=== PATIENT | male | born 1945 | race Caucasian/White ===

== ENCOUNTER → 2016-05-01 | Outpatient (CLI) | payer BC ==
[~2016-05-01] MED LIST: ACET-1138 PO; ALBUAER2 INH; ASPEC81 PO; ATOR-24 PO; CLB200 PO; CLC100 PO; FLUT220A INH; LEVO175T3 PO; MELA1TAB3 PO; OXYSR10 PO; PANT40TA PO; RISP4TAB8 PO; RXC5 PO; SNK PO; SOTA80TA PO; VENL75TA4 PO
[2016-05-01 11:45] LABS: BLOOD UREA NITROGEN 19 mg/dl (7-18); CALCIUM 8.3 mg/dl (8.5-10.1); CARBON DIOXIDE 30 mmol/L (21-32); CHLORIDE 102 mmol/L (98-107); GLUCOSE 90 mg/dl (70-99); POTASSIUM 4.8 mmol/L (3.5-5.1); SODIUM 138 mmol/L (136-145)
[2016-05-01 11:49] LABS: PHOSPHORUS 3.3 mg/dl (2.5-4.9); PROSTATE SPECIFIC ANTIGEN 0.537 ng/ml (0.000-4.000)
== END | disposition home or self-care (01) ==
LOC: C.LAB1850 10:12
PROVIDERS: ATTEND Internal Medicine Nephrology
DX: N40.0 Benign prostatic hyperplasia without lower urinary tract symptoms (principal); E87.1 Hypo-osmolality and hyponatremia

== ENCOUNTER → 2016-09-05 | Outpatient (CLI) | payer BC ==
--- NOTE | 2016-09-05 10:28 | DIAGNOSTIC IMAGING REPORT ---
CAROTID DOPPLER NECK ART HISTORY: Mental status change R42 COMPARISON: None. TECHNIQUE: Real-time, grayscale, and color Doppler sonography of the carotid arteries was performed. Imaging reviewed in the transverse and longitudinal planes. All measurements were calculated based on NASCET criteria. FINDINGS: Antegrade flow is seen in the bilateral vertebral arteries. The brachial pressures are hemodynamically similar. Minimal plaque formation bilaterally The peak systolic velocity within the right ICA is 57. The right systolic ratio is 0.8. The peak systolic velocity within the left ICA is 46. The left systolic ratio is 0.7. IMPRESSION: No hemodynamically significant stenosis seen within the carotid arteries. Minimal plaque formation The above report was generated using voice recognition software. It may contain grammatical, syntax or spelling errors. Electronically signed by: David Colunga M.D. 09/05/2016 10:26 AM Dictated Date/Time: 09/05/2016 10:07 AM
== END | disposition home or self-care (01) ==
LOC: C.ULTR 09:30
PROVIDERS: ATTEND Family Medicine
DX: R42 Dizziness and giddiness (principal)

== ENCOUNTER → 2017-03-01 | Outpatient (CLI) | payer BC ==
[2017-03-01 12:33] LABS: BLOOD UREA NITROGEN 16 mg/dl (7-18); CALCIUM 8.8 mg/dl (8.5-10.1); CARBON DIOXIDE 26 mmol/L (21-32); CREATININE 1.04 mg/dl (0.60-1.40); GLUCOSE 101 mg/dl (70-99); POTASSIUM 4.3 mmol/L (3.5-5.1); SODIUM 132 mmol/L (136-145)
== END | disposition home or self-care (01) ==
LOC: C.LAB1850 11:06
PROVIDERS: ATTEND Family Medicine
DX: Z12.5 Encounter for screening for malignant neoplasm of prostate (principal); R73.01 Impaired fasting glucose; N40.0 Benign prostatic hyperplasia without lower urinary tract symptoms

== ENCOUNTER 2018-09-06 07:52 | Inpatient (IN) ==
--- NOTE | 2018-08-23 09:17 | PAT Medication Instructions ---
Medication Instructions Date of Service August 23, 2018 Home Medications albuterol sulfate 1 puff INHALATION Q6H PRN aspirin 81 mg PO HS fluticasone propionate [Flovent HFA] 2 puff INHALATION BID levothyroxine 175 mcg PO QAM melatonin 5 mg PO HS pantoprazole 40 mg PO QAM pravastatin 20 mg PO HS risperidone 4 mg PO HS sotalol 80 mg PO BID venlafaxine [Effexor XR] 75 mg PO QAM Take morning of surgery With a small sip of water, OTHERWISE NOTHING TO EAT OR DRINK AFTER MIDNIGHT: albuterol sulfate 1 puff INHALATION Q6H PRN (if needed, and bring with you to the hospital) fluticasone propionate [Flovent HFA] 2 puff INHALATION BID levothyroxine 175 mcg PO QAM pantoprazole 40 mg PO QAM sotalol 80 mg PO BID venlafaxine [Effexor XR] 75 mg PO QAM Take evening before surgery albuterol sulfate 1 puff INHALATION Q6H PRN (if needed) aspirin 81 mg PO HS fluticasone propionate [Flovent HFA] 2 puff INHALATION BID melatonin 5 mg PO HS pravastatin 20 mg PO HS risperidone 4 mg PO HS sotalol 80 mg PO BID Other Notes If you have any questions please call us at [phone] or [phone] or [phone] or [phone]
--- NOTE | 2018-08-23 11:23 | Anesthesiology Consultation ---
Date of Service August 23, 2018 Assessment & Plan (1) Encounter for pre-operative examination: Cardiology Clearance 08/19/18 = "Echo reviewed. May proceed with surgery at intermediate risk 4-5% of cardiac complications (CHF, DE, , arrhythmia (hx PAF). Will confirm CORREA is unchanged." *pt stated at PAT his CORREA is the same as it has been. Chart Review Chart Review: Acceptable Risk for Surgery and Patient seen in Pre Admission Testing Teaching & Discussion Instructed NPO after midnight before surgery, except medications with 15 cc of water. Medication instructions provided according to the [facility] guidelines. History Surgery Operation Date: 09/06/18 09:55 Proposed Procedures p L4-L5 Decompression and Fusion, Spinal Cord Monitoring - Prosper Washington DO Height/Weight Height: 6 ft Weight: 101.8 kg Allergies Allergy/AdvReac Type Severity Reaction Status Date / Time No Known Allergies Allergy Unverified 08/20/18 12:23 Medications Home Medications Medication Instructions Recorded Confirmed Last Taken albuterol sulfate 1 puff INHALATION Q6H PRN 08/20/18 08/20/18 Unknown aspirin 81 mg PO HS 08/20/18 08/20/18 Unknown fluticasone propionate [Flovent 2 puff INHALATION BID 08/20/18 08/20/18 Unknown HFA] levothyroxine 175 mcg PO QAM 08/20/18 08/20/18 Unknown melatonin 5 mg PO HS 08/20/18 08/20/18 Unknown pantoprazole 40 mg PO QAM 08/20/18 08/20/18 Unknown pravastatin 20 mg PO HS 08/20/18 08/20/18 Unknown risperidone 4 mg PO HS 08/20/18 08/20/18 Unknown sotalol 80 mg PO BID 08/20/18 08/20/18 Unknown venlafaxine [Effexor XR] 75 mg PO QAM 08/20/18 08/20/18 Unknown Past Medical History Medical History Anemia HX Atrial fibrillation Paroxysmal, symptomatic, on Sotolol and ASA 81mg (no further anticoagulation due to h/o severe GI bleed) BPH (benign prostatic hyperplasia) CAD (coronary artery disease) Mild-moderate nonobstructive Chronic back pain CORREA (dyspnea on exertion) At cardiology office visit in June, pt admitted his CORREA felt worse than baseline. Cardio updated echo and had patient wear pulse ox overnight to rule out issues with CPAP/ADELE. Both WNL; patient stated at PAT appointment that CORREA is the same. Degenerative disc disease GERD (gastroesophageal reflux disease) GI bleed History of, ~[id number]. Pt reports 2 units of blood transfused Hyperlipidemia Hypothyroidism Osteoarthritis Sleep apnea CPAP Exercise / Class Metabolic Activity III < 4 Walking/Shop/Light housework (No CP or SOB with ambulation on one level; does not have stairs but feels he may have some SOB with stairs) Past Family History Family History Grandmother (Paternal) FHx: leukemia Grandfather (Paternal) FHx: stomach cancer Past Surgical History Surgical History History of arthroscopy LEFT KNEE X2 History of cardiac cath X3. NO STENTS. History of colonoscopy History of esophagogastroduodenoscopy (EGD) History of total knee replacement LEFT KNEE Hx of transurethral resection of prostate Past Anesthesia History No Hx of Anesthesia Complications and No Family Hx of Anesthesia Complications History of PONV No Hx of PONV and No Hx of Motion Sickness Social History Smoking Status: Former smoker tobacco type: cigarettes Do You Dip or Chew Tobacco: No Smoking End Date: 02/05/1979 Hx Alcohol Use: Yes Alcohol type: beer alcohol intake frequency: a few times a month Hx Substance Use: No substance use type: does not use Review of Systems Pt denies any recent chest pain, shortness of breath above baseline, pa lpitations, cough, fever or URI. Physical Exam Vital Signs BP: 105/70 (pt reports this is low for him but denies lightheadedness/dizziness) P: 63bpm SPO2: 97% RA T: 97.5 F R: 14 ENMT Mouth: + dental restorations (few crowns); no chipped teeth and no loose teeth Thyromental Distance: < 3.5 Finger Breadths (3) Mallampati Class: I Neck + short neck and + thick neck; neck extension not limited Respiratory normal respiratory effort Auscultation: lungs clear to auscultation bilaterally Cardiovascular Rate/Rhythm: regular rate and regular rhythm Heart Sounds: no murmur Vessels: no carotid bruit Extremities: no edema Testing Laboratory Results 08/23/18 11:34 08/23/18 11:34 PT 10.2 Seconds (9.0-12.0) 08/23/18 11:34 INR 1.0 (0.9-1.1) 08/23/18 11:34 APTT 27.9 Seconds (21.0-31.0) 08/23/18 11:34 Urine Color Yellow 08/23/18 11:34 Urine Appearance Clear (Clear) 08/23/18 11:34 Urine pH 6.0 (4.5-7.5) 08/23/18 11:34 Ur Specific [place] 1.023 (1.000-1.030) 08/23/18 11:34 Urine Protein Negative (Negative) 08/23/18 11:34 Urine Glucose (UA) Negative (Negative) 08/23/18 11:34 Urine Ketones Negative (Negative) 08/23/18 11:34 Urine Nitrite Negative (Negative) 08/23/18 11:34 Ur Leukocyte Esterase Negative (Negative) 08/23/18 11:34 Blood Type A Positive 08/23/18 11:34 Antibody Screen NEGATIVE 08/23/18 11:34 Electrocardiogram Date: 07/05/18 Findings: + SB @ (57) ST and T wave abnormality, consider anterolateral ischemia. Compared to EKG of 12/13/17, ST and T wave changes are worse in the anterolateral leads. *This EKG was done in congruence with echo, and reviewed by patient's cardi ologist (Hailee). Chest X-Ray Date: 08/23/18 FINDINGS: There is mild lung hyperexpansion. There is suspected underlying emphysema. There is no consolidation to suggest pneumonia and there is no evidence for pulmonary edema. No pneumothorax or pleural effusion is noted. The appearance of the chest is unchanged. IMPRESSION: 1. No acute cardiopulmonary findings. 2. Suspected emphysema. Echocardiogram Date: 07/05/18 EF: 50-55% Normal LV size with low-normal systolic function and no RWMA. Mild concentric LVH. Grade I diastolic dysfunction with normal left atrial pressure. Moderately dilated left atrium. Normal RV size and function. Dilated right atrium. Mild aortic insufficiency and mild mitral regurgitation. Normal pulmonary artery pressures.
--- NOTE | 2018-08-23 11:52 | XRay Report ---
XR chest Pre-admission PA/Lat CLINICAL HISTORY: Preoperative evaluation. COMPARISON STUDY: Chest radiograph November 02, 2014. FINDINGS: There is mild lung hyperexpansion. There is suspected underlying emphysema. There is no con solidation to suggest pneumonia and there is no evidence for pulmonary edema. No pneumothorax or pleu ral effusion is noted. The appearance of the chest is unchanged. IMPRESSION: 1. No acute cardiopulmonary findings. 2. Suspected emphysema. Electronically signed by: Surinder Pina M.D. 08/23/2018 11:50 AM
[2018-08-23 13:33] LABS: Basophils # (auto) 0.02 K/uL (0-0.2); Basophils % (auto) 0.3 %; Eosinophils # (auto) 0.25 K/uL (0-0.5); Eosinophils % (auto) 3.3 %; Hemoglobin 15.5 g/dL (14.0-18.0); Immature Granulocytes # (auto) 0.07 K/uL (0.00-0.02); Immature Granulocytes % (auto) 0.9 %; Lymphocytes # (auto) 1.85 K/uL (1.2-3.4); Lymphocytes % (auto) 24.3 %; Mean Corpuscular Hgb Conc 35.2 g/dL (32-36); Mean Corpuscular Volume 87.8 fL (80-100); Monocytes # (auto) 0.95 K/uL (0.11-0.59); Monocytes % (auto) 12.5 %; Neutrophils # (auto) 4.46 K/uL (1.4-6.5); Neutrophils % (auto) 58.7 %; Platelet Count 279 K/uL (130-400); RDW Coefficient of Variation 13.8 % (11.5-14.5); RDW Standard Deviation 44.3 fL (36.4-46.3); Red Blood Count 5.01 M/uL (4.7-6.1)
[2018-08-23 13:41] LABS: Appearance Urine Clear (Clear); Bilirubin Urine Negative (Negative); Blood Urine Negative (Negative); Color Urine Yellow; Glucose Urine UA Negative (Negative); Ketones Urine Negative (Negative); Leukocyte Esterase Urine Negative (Negative); Nitrite Urine Negative (Negative); Protein Urine Negative (Negative); Specific Gravity Urine 1.023 (1.000-1.030); Urobilinogen Urine Negative (Negative)
[2018-08-23 13:43] LABS: Partial Thromboplastin Time 27.9 Seconds (21.0-31.0); Prothrombin Time 10.2 Seconds (9.0-12.0)
[2018-08-23 13:52] LABS: BUN Creatinine Ratio 16.4 (10-20); Calcium 8.9 mg/dl (8.5-10.1); Creatinine Clr Calc Pharmacy 92.7 ml/min; Est GFR (African American) 98.8; Est GFR (Non-African American) 85.2; Potassium 4.3 mmol/L (3.5-5.1)
[~2018-09-06 07:52] MED LIST changes: -ACET-1138 PO; -ALBUAER2 INH; -ASPEC81 PO; -ATOR-24 PO; +CEFAZOLIN 2000MG 2,000 MG/15 ML SYR IV SCH; -CLB200 PO; -CLC100 PO; -FLUT220A INH; -LEVO175T3 PO; +LR 15ML/HR IV SCH; -MELA1TAB3 PO; -OXYSR10 PO; -PANT40TA PO; -RISP4TAB8 PO; -RXC5 PO; -SNK PO; -SOTA80TA PO; -VENL75TA4 PO
[2018-09-06] MEDS ORDERED: MIDAZOLAM HCL 1 MG/ML 2ML VIAL ONE (09:19)
[2018-09-06] MEDS ORDERED: fentaNYL citrate 100 MCG/2 ML VIAL ONE ×5 (09:19→12:19)
--- NOTE | 2018-09-06 09:26 | History & Physical Bridge Note ---
Date of Service September 06, 2018 History & Physical Bridge Note I have examined the patient, reviewed the History & Physical and in the interval since the performance of the History & Physical I have noted the following changes of clinical significance: no changes noted
--- NOTE | 2018-09-06 09:27 | History & Physical Report ---
Date of Service September 06, 2018 Assessment & Plan (1) Spinal stenosis, lumbar region with neurogenic claudication: Lumbar decompression and fusion L4-5 L5-S1 Present on Admission?: Yes History of Present Illness Chief Complaint: Back and leg pain Primary Care Provider: Choco Lopez MD This is a 73-year-old male who presents with worsening back and leg pain. After failing extensive course of nonoperative care is here for surgical intervention. Allergies Allergy/AdvReac Type Severity Reaction Status Date / Time No Known Allergies Allergy Verified 09/06/18 08:23 Home Medications Home Medications Medication Instructions Recorded Confirmed Type albuterol sulfate 1 puff INHALATION Q6H PRN 08/20/18 09/06/18 History aspirin 81 mg PO HS 08/20/18 09/06/18 History fluticasone propionate [Flovent 2 puff INHALATION BID 08/20/18 09/06/18 History HFA] levothyroxine 175 mcg PO QAM 08/20/18 09/06/18 History melatonin 5 mg PO HS 08/20/18 09/06/18 History pantoprazole 40 mg PO QAM 08/20/18 09/06/18 History pravastatin 20 mg PO HS 08/20/18 09/06/18 History risperidone 4 mg PO HS 08/20/18 09/06/18 History sotalol 80 mg PO BID 08/20/18 09/06/18 History venlafaxine [Effexor XR] 75 mg PO QAM 08/20/18 09/06/18 History Past Med/Surg History Family History Grandmother (Paternal) FHx: leukemia Grandfather (Paternal) FHx: stomach cancer Social History Preferred Language: Citizen Of [place] Communication Ability: Effective Police Reserves Commander Required: No Beliefs That Will Affect Care: None Current Living Situation: Alone Other Information That Helps Us Care for You: No Feels Safe at Home: Yes Safety Concerns: Feels Safe At This Time Smoking Status: Former smoker Tobacco Type: cigarettes ; Do You Dip or Chew Tobacco: No ; Smoking End Date: 02/05/1979 ; Second Hand Exposure: Yes ( A CHILD) ; Tobacco Cessation Education Requested by Patient: No Hx Alcohol Use: Yes Alcohol type: beer Hx Substance Use: No Physical Exam Physical Exam: Patient is alert and oriented neurologically intact. Results & Data Vital Signs (Past 12 Hours) Vital Signs Temp Pulse Resp BP Pulse Ox 09/06/18 08:26 36.7 C 55 L 18 124/85 98
[2018-09-06] MEDS ORDERED: BUPIVACAINE/EPINEPHRINE 0.5% MPF 1:200,000 30 ML VIAL ONE (09:52)
[2018-09-06] MEDS ORDERED: BACITRACIN INJ 50,000 UNIT VIAL ONE (09:52)
[2018-09-06] MEDS ORDERED: PROMETHAZINE HCL 6.25 MG in SODIUM CHLORIDE 0.9% 50 ML IV PRN (09:54)
[2018-09-06] MEDS ORDERED: HYDROmorphone INJ 2 MG/ML SYR/VIAL IV PRN (09:54)
[2018-09-06] MEDS ORDERED: ePHEDrine sulfate 50 MG/ML AMP IV PRN (09:54)
[2018-09-06] MEDS ORDERED: fentaNYL citrate 100 MCG/2 ML VIAL IV PRN (09:54)
[2018-09-06] MEDS ORDERED: ATROPINE SULFATE 0.1 MG/ML 10ML SYR IV PRN (09:54)
[2018-09-06] MEDS ORDERED: ONDANSETRON INJ 2 MG/ML 2 ML VIAL IV PRN ×2 (09:54→13:56)
[2018-09-06] MEDS ORDERED: HYDROmorphone INJ 2 MG/ML SYR/VIAL ONE ×2 (10:31→12:18)
[2018-09-06] MEDS ORDERED: VASOPRESSIN 20 UNIT/ML VIAL ONE (10:40)
[2018-09-06] MEDS ORDERED: FLOSEAL HEMOSTATIC MATRIX 10ML TOP ONE (11:02)
[2018-09-06] MEDS ORDERED: ROCURONIUM BROMIDE 10 MG/ML 5 ML VIAL ONE (12:18)
[2018-09-06] MEDS ORDERED: KETOROLAC 30 MG/ML VIAL ONE (12:18)
[2018-09-06] MEDS ORDERED: DEXAMETHASONE SOD INJ 4 MG/ML VIAL ONE (12:18)
[2018-09-06] MEDS ORDERED: ONDANSETRON INJ 2 MG/ML 2 ML VIAL ONE (12:18)
[2018-09-06] MEDS ORDERED: GLYCOPYRROLATE 0.2 MG/ML VIAL ONE (12:18)
[2018-09-06] MEDS ORDERED: ePHEDrine sulfate 50 MG/ML AMP ONE (12:18)
[2018-09-06] MEDS ORDERED: LIDOCAINE HCL 2% 2 ML VIAL/AMP(20MG/ML) INFIL ONE (12:18)
[2018-09-06] MEDS ORDERED: LARYING-O-JET KIT (LTA) ONE (12:18)
[2018-09-06] MEDS ORDERED: ePHEDrine sulfate 50 MG/ML SYR ONE (12:18)
[2018-09-06] MEDS ORDERED: PROPOFOL IV EMULSION 10 MG/ML 20 ML VIAL IV ONE (12:18)
[2018-09-06] MEDS ORDERED: NEOSTIGMINE METHYLSULFATE 1 MG/ML 10ML VIAL ONE (12:18)
--- NOTE | 2018-09-06 12:23 | Operative Report ---
Post Operative Report Pre & Post Diagnosis Operation Date: 09/06/18 09:55 Pre-Op Diagnosis: Lumbar spinal stenosis with neurogenic claudication Post-Op Diagnosis: Same Procedure Operation Date: 09/06/18 09:55 Actual Procedures #1 lumbar decompression with bilateral medial facetectomies foraminotomies L3-4 L4-5 L5-S1. #2 posterior spinal fusion L4-5 L5-S1. #3 placement posterior instrumentation L4-5 L5-S1. #4 placement of local autograft in the posterior lateral gutters. #5 placement infuse collagen sponge combined with master graft and ostial amp in the posterior lateral gutters L4-S1. Surgeon Prosper Washington, DO S3B Multi Sensor Operator Gustavo Guillaume Estimated Blood Loss 225 Findings Consistent with Post-Op Diagnosis Specimens None Indications Patient is a 73-year-old male that presents with the above-mentioned diagnosis after failing extensive course of nonoperative care is here for surgical intervention. Description of Procedure Patient was met with identified and informed consent obtained. He was then taken to the operative suite underwent intubation placed in a prone position on the Harshal table on top of the Siva frame. All bony prominences well-padded was prepped and draped in normal sterile fashion. Sharp dissection with the assistance of Bovie cautery was performed on down to and exposing the lamina and transverse processes of L4-L5 and the sacral ala bilaterally. From a caudal to cephalad fashion plate laminectomy of L5 L4 partial laminectomy of L3 was performed including bilateral medial facetectomies and foraminotomies addressing severe stenosis. Pedicle screw was then placed in L4-L5 and S1 bilaterally. The appropriately size aida was locked in position. Transverse processes of L4- L5 and the sacral ala were then burred to subcortical bleeding bone and infuse collagen sponge master graft local autograft placed in the posterior lateral gutters. 15 round DILCIA drain inserted. The incision was then closed with 1 Vicryl in the fascia 2-0 Vicryl subtenons in 4 Monocryl for final skin closure. Steri-Strips dressings placed. Patient will continue to PACU stable disc. Please note Gustavo Guillaume present throughout the entire procedure involved the patient positioning complex portions of the surgery and final skin closure. Lastly spinal cord monitoring was utilized that procedure no changes noted. I attest to the content of the Intraoperative Record and any orders documented therein. Any exceptions are noted below.
--- NOTE | 2018-09-06 12:37 | Fluoroscopy Report ---
FL lumbar spine 2-3V CLINICAL HISTORY: L4-L5 DECOMPRESSION AND FUSION COMPARISON STUDY: FLUOROSCOPY TIME: 21 seconds. NUMBER OF FLUOROSCOPIC IMAGES: 2 FINDINGS: 2 intraoperative fluoroscopic spot images reveal postsurgical changes of a spinal decompres rancho and L4-S1 spinal fusion with pedicle screw fixation IMPRESSION: Postsurgical changes of L4-S1 spinal decompression and fusion Electronically signed by: Yayo Garza M.D. 09/06/2018 12:36 PM
--- NOTE | 2018-09-06 13:19 | Anesthesiology Progress Note ---
Date of Service September 06, 2018 Anesthesia Post Procedure Vital Signs Vital Signs: Temp Pulse Pulse Resp BP Pulse Ox 09/06/18 13:10 36.9 C 67 16 95/60 L 96 09/06/18 13:00 64 16 99/57 L 97 09/06/18 12:50 72 16 95/67 L 97 09/06/18 12:42 37.2 C 72 18 106/63 96 09/06/18 08:26 36.7 C 55 L 18 124/85 98 Pain Intensity Back: Pain Intensity: 8 Transfer of Care Handoff Completed per policy Notes Mental Status: alert / awake / arousable Patient Amnestic to Procedure: Yes Nausea / Vomiting: adequately controlled Pain: adequately controlled Airway Patency, RR, SpO2: stable & adequate BP & HR: stable & adequate Hydration State: stable & adequate Anesthetic Complications: no major complications apparent
[2018-09-06] MEDS ORDERED: DO NOT ADMINISTER FLU VACCINE PRN (13:56)
[2018-09-06] MEDS ORDERED: TRAMADOL HCL 50 MG TABLET PO PRN (13:56)
[2018-09-06] MEDS ORDERED: METOCLOPRAMIDE HCL INJ 5 MG/ML 2 ML VIAL IV PRN (13:56)
[2018-09-06] MEDS ORDERED: ALBUTEROL HFA 8 GM INHALER INH PRN (13:56)
[2018-09-06] MEDS ORDERED: FAMOTIDINE 20 MG TAB PO PRN (13:56)
[2018-09-06] MEDS ORDERED: PROMETHAZINE HCL 12.5 MG in SODIUM CHLORIDE 0.9% 50 ML IV PRN (13:56)
[2018-09-06] MEDS ORDERED: HYDROmorphone INJ 0.5 MG/0.5 ML SYR IV PRN (13:56)
[2018-09-06] MEDS ORDERED: ALUMINUM/MAGNESIUM SUSP 30 ML UDC PO PRN (13:56)
[2018-09-06] MEDS ORDERED: LORazepam 0.5 MG TAB PO PRN (13:56)
[2018-09-06] MEDS ORDERED: ONDANSETRON 4 MG TAB PO PRN (13:56)
[2018-09-06] MEDS ORDERED: MAGNESIUM HYDROXIDE SUSP 30 ML UDC PO PRN (13:56)
[2018-09-06] MEDS ORDERED: SOD PHOSPHATE/SOD BIPHOSPHATE ENEMA 132 ML BTL PR PRN (13:56)
[2018-09-06] MEDS ORDERED: DO NOT ADMINISTER PNEUMOCOCCAL VACCINE PRN (13:56)
[2018-09-06] MEDS ORDERED: BISACODYL 10 MG SUPP PR PRN (13:56)
[2018-09-06] MEDS ORDERED: LORazepam 0.5 MG/1 ML VIAL IV PRN (13:56)
[2018-09-06] MEDS ORDERED: ACETAMINOPHEN 1,000 MG/100 ML VIAL IV PRN (13:56)
--- NOTE | 2018-09-06 14:20 | Hospitalist Consultation ---
Date of Consultation September 06, 2018 Assessment & Plan (1) Atrial fibrillation: Patient sounds to be in regular rhythm is atrial fibrillation is controlled with sotalol this is continued (2) Hypothyroidism: Patient is on Synthroid 175 mcg a day he appears clinically euthyroid (3) Sleep apnea: Patient's family has brought patient sleep apnea machine and this to be continued to use at night, patient also uses melatonin (4) GERD (gastroesophageal reflux disease): Patient typically takes Protonix Dr. Washington is also ordered Pepcid (5) CAD (coronary artery disease): Patient is a distant history of coronary artery disease Dr. Dr. Washington has continued his aspirin in the postoperative period (6) Hyperlipidemia: Pravachol for dyslipidemia secondary disease prevention (7) Depression: Patient is Effexor 75 and Risperdal for been continued (8) Asthma: Patient takes Flovent daily 2 puffs twice daily and only uses as needed albuterol when he feels short of breath which he is not on for some time as he has not been exerting himself History of Present Illness Attending Physician: Prosper Washington, DO 09/06/18 p L4-S1 Decompression and Fusion, Interbody Fusion L-, Use of Infuse and Osteoamp, Spinal Cord Monitoring Surgeon: Prosper Washington History of Present Illness 73-year-old male who had lumbar decompressive spinal surgery on 09/06/2018. 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 Seen postoperatively in his room with his family his back pain is improved and almost resolved he is no chest pain shortness of breath and is actually eating dinner. Allergies Allergy/AdvReac Type Severity Reaction Status Date / Time No Known Allergies Allergy Verified 09/06/18 08:23 Home Medications Home Medications Medication Instructions Recorded Confirmed Type albuterol sulfate 1 puff INHALATION Q6H PRN 08/20/18 09/06/18 History aspirin 81 mg PO HS 08/20/18 09/06/18 History fluticasone propionate [Flovent 2 puff INHALATION BID 08/20/18 09/06/18 History HFA] levothyroxine 175 mcg PO QAM 08/20/18 09/06/18 History melatonin 5 mg PO HS 08/20/18 09/06/18 History pantoprazole 40 mg PO QAM 08/20/18 09/06/18 History pravastatin 20 mg PO HS 08/20/18 09/06/18 History risperidone 4 mg PO HS 08/20/18 09/06/18 History sotalol 80 mg PO BID 08/20/18 09/06/18 History venlafaxine [Effexor XR] 75 mg PO QAM 08/20/18 09/06/18 History Patient History Family History Grandmother (Paternal) FHx: leukemia Grandfather (Paternal) FHx: stomach cancer Social History Preferred Language: Sami Communication Ability: Effective Plant Operations Manager Required: No Beliefs That Will Affect Care: None Current Living Situation: Alone Other Information That Helps Us Care for You: No Feels Safe at Home: Yes Safety Concerns: Feels Safe At This Time Smoking Status: Former smoker Tobacco Type: cigarettes ; Do You Dip or Chew Tobacco: No ; Smoking End Date: 02/05/1979 ; Second Hand Exposure: Yes ( A CHILD) ; Tobacco Cessation Education Requested by Patient: No Hx Alcohol Use: Yes Alcohol type: beer Hx Substance Use: No Review of Systems Review of Systems: ROS: well nourished well developed. No double vision blurry vision No problems with speech or swallowing No palpitations, chest pain or pressure No Wheezing or breathing issues No abdominal pain nausea vomiting diarrhea changes in appetite or weight No burning urine urine frequency or changes in color No focal joint pain or muscle pain No skin rashes or oral lesions No unusual bruising or bleeding Patient is back pain is improved he is not yet been out of bed he is no numbness or tingling to his legs No changes in memory or confusion Physical Exam Physical Exam: The patient appeared well nourished and normally developed. Vital signs as documented. Head exam is unremarkable. normocephalic, atraumatic Neck is without jugular venous distension, thyromegaly, or lymphademopathy Lungs are clear to auscultation and percussion. Cardiac exam reveals Rhythm is regular. First and second heart sounds normal. Abdominal exam reveals normal bowel sounds, no masses, no organomegaly Extremities are nonedematous and both pedal pulses are present Neurologic exam is A&Ox3, distal sensation to his toes and feet are intact he can move his feet without difficulty Psychologically seems neither anxious or depressed Skin is warm Dry Results & Data Vital Signs (Past 12 Hours) Vital Signs Temp Pulse Pulse Resp BP Pulse Ox 09/06/18 13:20 63 16 98/66 L 96 09/06/18 13:10 36.9 C 67 16 95/60 L 96 09/06/18 13:00 64 16 99/57 L 97 09/06/18 12:50 72 16 95/67 L 97 09/06/18 12:42 37.2 C 72 18 106/63 96 09/06/18 08:26 36.7 C 55 L 18 124/85 98 PG Care Time/CCT Total # of Minutes Spent Total Time Spent with Patient: Total time spent is greater than 50% in coordination of care (as documented) at patient's floor/unit and/or counseling patient:
[2018-09-06] MEDS: SODIUM CHLORIDE 0.9% 1000ML 1,000 ML IV SCH ×2 (14:33→20:48)
[2018-09-06] MEDS: OXYCODONE HCL IR 5 MG TAB (IMMEDIATE RELEASE) PO PRN ×2 (17:39→22:10)
[2018-09-06] MEDS: CEFAZOLIN 2000MG 2,000 MG/15 ML SYR IV SCH (18:04)
[2018-09-06] MEDS: FLUTICASONE HFA 110MCG INHALER INH SCH (20:52)
[2018-09-06] MEDS: ASPIRIN 81 MG ECTAB PO SCH (20:52)
[2018-09-06] MEDS: PRAVASTATIN SOD 20 MG TAB PO SCH (20:53)
[2018-09-06] MEDS: DOCUSATE SODIUM/SENNA 50/8.6MG TAB PO SCH (20:53)
[2018-09-06] MEDS: SOTALOL HCL 80 MG TAB PO SCH (20:53)
[2018-09-06] MEDS: risperiDONE 2 MG TABLET PO SCH (20:53)
[2018-09-06] MEDS ORDERED: NON-FORMULARY MEDICATION (Melatonin 5 MG) PO SCH (21:00)
[2018-09-07] MEDS: ACETAMINOPHEN 500 MG TAB PO PRN ×3 (02:49→20:42)
[2018-09-07] MEDS: SODIUM CHLORIDE 0.9% 1000ML 1,000 ML IV SCH (02:50)
[2018-09-07] MEDS: CEFAZOLIN 2000MG 2,000 MG/15 ML SYR IV SCH (02:50)
[2018-09-07] MEDS: POLYETHYLENE (MIRALAX) 17 GM PACK PO SCH ×3 (05:36→18:04)
[2018-09-07] MEDS: LEVOTHYROXINE SODIUM 175 MCG TABLET PO SCH (05:36)
[2018-09-07 06:26] LABS: Basophils # (auto) 0.01 K/uL (0-0.2); Basophils % (auto) 0.1 %; Eosinophils # (auto) 0.01 K/uL (0-0.5); Eosinophils % (auto) 0.1 %; Hematocrit (blood only) 34.9 % (42-52); Hemoglobin 12.1 g/dL (14.0-18.0); Immature Granulocytes # (auto) 0.06 K/uL (0.00-0.02); Immature Granulocytes % (auto) 0.4 %; Lymphocytes # (auto) 1.48 K/uL (1.2-3.4); Lymphocytes % (auto) 10.3 %; Mean Corpuscular Hgb Conc 34.7 g/dL (32-36); Mean Corpuscular Volume 86.4 fL (80-100); Mean Platelet Volume 8.6 fL (7.4-10.4); Monocytes # (auto) 1.34 K/uL (0.11-0.59); Monocytes % (auto) 9.4 %; Neutrophils % (auto) 79.7 %; Platelet Count 236 K/uL (130-400); RDW Standard Deviation 41.5 fL (36.4-46.3); Red Blood Count 4.04 M/uL (4.7-6.1)
[2018-09-07 07:01] LABS: BUN Creatinine Ratio 11.7 (10-20); Creatinine Clr Calc Pharmacy 86.2 ml/min; Est GFR (African American) 96.5; Est GFR (Non-African American) 83.3; Potassium 3.8 mmol/L (3.5-5.1)
[2018-09-07] MEDS: VENLAFAXINE HCL XR 75 MG CAPXR PO SCH (08:02)
[2018-09-07] MEDS: SOTALOL HCL 80 MG TAB PO SCH ×2 (08:03→20:41)
[2018-09-07] MEDS: FLUTICASONE HFA 110MCG INHALER INH SCH ×2 (08:03→20:41)
[2018-09-07] MEDS: PANTOprazole 40 MG TAB PO SCH (08:03)
[2018-09-07] MEDS ORDERED: LEVOTHYROXINE SODIUM 175 MCG TABLET PO SCH (09:00)
--- NOTE | 2018-09-07 10:12 | Orthopedic Progress Note ---
Date of Service September 07, 2018 Assessment & Plan (1) Spinal stenosis, lumbar region with neurogenic claudication: This time we will continue physical therapy advance his bowel regiment anticipate discharge Sunday. Present on Admission?: Yes Subjective Patient has back pain today but leg symptoms improved. Physical Exam Physical Exam: Is good strength testing appears comfortable. Results & Data Vital Signs (Past 12 Hours) Vital Signs Temp Pulse Pulse Resp BP BP Pulse Ox 09/07/18 07:34 36.5 C 67 18 130/85 96 09/07/18 02:51 36.5 C 65 16 130/84 93 09/06/18 23:25 36.4 C L 69 16 109/67 97
--- NOTE | 2018-09-07 12:02 | Hospitalist Progress Note ---
Date of Service September 07, 2018 Assessment & Plan (1) Spinal stenosis, lumbar region with neurogenic claudication: - Status post #1 lumbar decompression with bilateral medial facetectomies foraminotomies L3-4 L4-5 L5-S1. #2 posterior spinal fusion L4-5 L5-S1. #3 placement posterior instrumentation L4-5 L5-S1. #4 placement of local autograft in the posterior lateral gutters. #5 placement infuse collagen sponge combined with master graft and ostial amp in the posterior lateral gutters L4-S1 on 09/06/18, POD#1. - Pain control per primary team. - DVT ppx per ortho; currently receiving home ASA 81 mg qhs. - PT/OT evaluation for discharge planning. (2) Atrial fibrillation: - In NSR on exam; continue home Sotalol as prescribed. - Not on anticoagulation at home, likely due to severe GI bleed in 2014. (3) Hypothyroidism: - Continue Synthroid 175 mcg daily. - No recent TSH, will order in the AM. (4) Sleep apnea: - Continue CPAP qhs. (5) GERD (gastroesophageal reflux disease): - PPI daily. (6) CAD (coronary artery disease): - S/p cardiac cath in Dec 2011; 50% RCA lesion, 30% LAD lesion and 40% circumflex lesion noted. - Most recent TTE in June 2018 showed low normal LV function, no wall motion abnormalities, grade I DD. - Evaluated by cardiology preop and cleared for surgery. - No evidence of cardiac symptoms at this time. - Continue ASA 81 mg daily, Pravachol, Sotalol as prescribed. (7) Hyperlipidemia: - Pravachol. (8) Depression: - Continue Effexor and Risperdal. (9) Asthma: - Continue Flovent BID with Albuterol prn. (10) DVT prophylaxis: - Per ortho -- currently receiving ASA daily. Dispo: Pt. is medically stable, will sign off. Please call with any questions. Supervising Physician Co-Signing Physician Notes PA Supervision Note: I did not personally see or examine the patient today, but I verified all logan points of VICKEY Squires's assessment and plan with the following exceptions/additions: None Subjective Pt. is doing well. He has back pain with movement. Denies chest pain, SOB. Is passing gas, no BM yet. Has kc catheter in place post op. Review of Systems Review of Systems: All systems reviewed & are unremarkable except as noted in HPI & below Constitutional: no fever, no chills, no fatigue, no weakness and no anorexia Respiratory: no cough, no dyspnea, no dyspnea on exertion and no wheezing Cardiovascular: no chest pain, no palpitations and no edema Gastrointestinal: + constipation; no abdominal pain and no nausea Genitourinary: no difficulty urinating Musculoskeletal: + back pain; no joint pain Integumentary: no non-healing lesions Physical Exam Physical Exam: General: Resting comfortably HEENT: NC/AT; PERRLA with EOMI; Aspen conjunctiva, MMM. No erythema of posterior pharynx Neck: Supple and nontender Cardiac: RRR Lungs: CTA bilaterally Abdomen: Bowel normoactive X 4; Nontender to palpation Extremities: Warm. No edema present Neuro: No focal weakness Skin: No rash Results & Data Vital Signs (Past 12 Hours) Vital Signs Temp Pulse Pulse Resp BP Pulse Ox 09/07/18 07:34 36.5 C 67 18 130/85 96 09/07/18 02:51 36.5 C 65 16 130/84 93 Laboratory Results 09/07/18 09/07/18 Range/Units 06:03 06:03 WBC 14.30 H (4.8-10.8) K/uL RBC 4.04 L (4.7-6.1) M/uL Hgb 12.1 L (14.0-18.0) g/dL Hct 34.9 L (42-52) % MCV 86.4 (80-100) fL MCH 30.0 (25-34) pg MCHC 34.7 (32-36) g/dL RDW Std Deviation 41.5 (36.4-46.3) fL RDW Coeff of Rj 13.0 (11.5-14.5) % Plt Count 236 (130-400) K/uL MPV 8.6 (7.4-10.4) fL Immature Gran % (Auto) 0.4 % Neut % (Auto) 79.7 % Lymph % (Auto) 10.3 % [place] % (Auto) 9.4 % Eos % (Auto) 0.1 % Baso % (Auto) 0.1 % Immature Gran # (Auto) 0.06 H (0.00-0.02) K/uL Neut # (Auto) 11.40 H (1.4-6.5) K/uL Lymph # (Auto) 1.48 (1.2-3.4) K/uL [place] # (Auto) 1.34 H (0.11-0.59) K/uL Eos # (Auto) 0.01 (0-0.5) K/uL Baso # (Auto) 0.01 (0-0.2) K/uL Sodium 132 L (136-145) mmol/L Potassium 3.8 (3.5-5.1) mmol/L Chloride 102 (98-107) mmol/L Carbon Dioxide 24 (21-32) mmol/L Anion Gap 6.0 (3-11) BUN 11 (7-18) mg/dl Creatinine 0.90 (0.6-1.4) mg/dl Est Cr Clr Drug Dosing 86.2 ml/min Est GFR ( Amer) 96.5 Est GFR (Non-Af Amer) 83.3 BUN/Creatinine Ratio 11.7 (10-20) Glucose 119 H (70-99) mg/dl Calcium 8.0 L (8.5-10.1) mg/dl PG Care Time/CCT Total # of Minutes Spent Total Time Spent with Patient: Total time spent is greater than 50% in coordination of care (as documented) at patient's floor/unit and/or counseling patient:
[2018-09-07] MEDS: ASPIRIN 81 MG ECTAB PO SCH (20:42)
[2018-09-07] MEDS: PRAVASTATIN SOD 20 MG TAB PO SCH (20:42)
[2018-09-07] MEDS: DOCUSATE SODIUM/SENNA 50/8.6MG TAB PO SCH (20:42)
[2018-09-07] MEDS: risperiDONE 2 MG TABLET PO SCH (20:42)
[2018-09-08] MEDS: POLYETHYLENE (MIRALAX) 17 GM PACK PO SCH ×2 (00:12→05:58)
[2018-09-08] MEDS: LEVOTHYROXINE SODIUM 175 MCG TABLET PO SCH (05:58)
[2018-09-08] MEDS: ACETAMINOPHEN 500 MG TAB PO PRN ×2 (06:02→17:41)
[2018-09-08 06:06] LABS: Hematocrit (blood only) 34.4 % (42-52); Hemoglobin 11.8 g/dL (14.0-18.0); Mean Corpuscular Hgb Conc 34.3 g/dL (32-36); Mean Corpuscular Volume 85.4 fL (80-100); Mean Platelet Volume 8.8 fL (7.4-10.4); Platelet Count 227 K/uL (130-400); RDW Coefficient of Variation 13.5 % (11.5-14.5); RDW Standard Deviation 42.1 fL (36.4-46.3); Red Blood Count 4.03 M/uL (4.7-6.1); White Blood Count 7.77 K/uL (4.8-10.8)
[2018-09-08 06:41] LABS: BUN Creatinine Ratio 12.7 (10-20); Creatinine Clr Calc Pharmacy 117.5 ml/min; Est GFR (African American) 109.6; Est GFR (Non-African American) 94.6; Potassium 3.9 mmol/L (3.5-5.1)
[2018-09-08] MEDS: VENLAFAXINE HCL XR 75 MG CAPXR PO SCH (07:15)
[2018-09-08] MEDS: FLUTICASONE HFA 110MCG INHALER INH SCH ×2 (07:15→20:03)
[2018-09-08] MEDS: SOTALOL HCL 80 MG TAB PO SCH ×2 (07:15→20:02)
[2018-09-08] MEDS: PANTOprazole 40 MG TAB PO SCH (07:15)
--- NOTE | 2018-09-08 12:00 | Orthopedic Progress Note ---
Date of Service September 08, 2018 Assessment & Plan (1) Spinal stenosis, lumbar region with neurogenic claudication: At this time we will continue physical therapy monitor his DILCIA output anticipate discharge home tomorrow. Present on Admission?: Yes Subjective Patient's back pain is controlled leg symptoms markedly improved. Physical Exam Physical Exam: Patient has good strength testing appears comfortable. Results & Data Vital Signs (Past 12 Hours) Vital Signs Temp Pulse Resp BP Pulse Ox 09/08/18 07:14 36.5 C 74 18 118/72 94
[2018-09-08] MEDS: ASPIRIN 81 MG ECTAB PO SCH (20:02)
[2018-09-08] MEDS: PRAVASTATIN SOD 20 MG TAB PO SCH (20:02)
[2018-09-08] MEDS: risperiDONE 2 MG TABLET PO SCH (20:02)
[2018-09-08] MEDS: DOCUSATE SODIUM/SENNA 50/8.6MG TAB PO SCH (20:03)
[2018-09-09] MEDS: LEVOTHYROXINE SODIUM 175 MCG TABLET PO SCH (06:05)
[2018-09-09] MEDS: ACETAMINOPHEN 500 MG TAB PO PRN (06:05)
[2018-09-09] MEDS: SOTALOL HCL 80 MG TAB PO SCH (08:17)
[2018-09-09] MEDS: PANTOprazole 40 MG TAB PO SCH (08:18)
[2018-09-09] MEDS: VENLAFAXINE HCL XR 75 MG CAPXR PO SCH (08:18)
[2018-09-09] MEDS: FLUTICASONE HFA 110MCG INHALER INH SCH (08:18)
--- NOTE | 2018-09-09 09:34 | Discharge Summary ---
Date of Service September 09, 2018 Admission HPI Per Admitting Provider This is a 73-year-old male who presents with worsening back and leg pain. After failing extensive course of nonoperative care is here for surgical intervention. Principal Diagnosis Lumbar spinal stenosis with neurogenic claudication Discharge Data Allergies Allergy/AdvReac Type Severity Reaction Status Date / Time No Known Allergies Allergy Verified 09/06/18 08:23 Consultations 09/06/18 13:56 Consult Case Management - Discharge Planning Routine Consult Hospitalist Routine Procedures Performed Operation Date: 09/06/18 09:55 Actual Procedures p L4-S1 Decompression and Fusion, Interbody Fusion L-, Use of Infuse and Osteoamp, Spinal Cord Monitoring(Not Applicable) - Prosper Washington DO Ordered Studies 09/06/18 09:55 FL fluoroscopy <1hr Routine FL lumbar spine 2-3V Routine Hospital Course (1) Spinal stenosis, lumbar region with neurogenic claudication: Patient underwent lumbar decompression fusion tolerated this well was taken to the orthopedic floor postoperative. Postop day 1 is up and ambulating tolerating physical therapy well. Progressive postop day #2 postop day 3 DILCIA drain decreased probably pain well controlled subsequently discharged home. Discharge orders and instructions from the chart for further review. Total Time Total Time Spent Total Time Spent (In Minutes): 20 minutes Discharge Plan Discharge Items Patient Disposition: Home - Self-Care Reason For Visit: LUMBAR SPINAL STENOSIS W/OUT NEUROGENIC CLAUDICATI Discharge Diagnosis: Lumbar spinal stenosis with neurogenic claudication Discharge Goals: Improve function Activity: Per 'Additional Instructions' section Non-emergency contact: Primary Care Provider Call non-emergency contact if: you have any medication questions Follow-up/Referrals: Choco Lopez MD [Primary Care Provider] - Diet: Regular Addtl Provider Instructions: ACTIVITY RECOMMENDATIONS: SELF CARE INSTRUCTIONS AFTER THORACIC/LUMBAR FUSIONS 1. You may walk to your tolerance. It is good exercise for your legs and back. Expect some back and intermittent leg aches and pains. 2. You may perform "counter-top" level activities (make a sandwich, kailash with a project, etc.). 3. No bending or lifting of more than 10 pounds or back twisting of any nature (roll like a log when turning in bed). 4. You may ride in a car for 20-30 minutes at a time. No driving until after your first visit with your doctor. 5. Frequent changes of position and restricting sitting to 30 minutes at a time will help limit the amount of back spasms and stiffness you may experience. 6. You may discontinue the use of ambulatory aids (cane, crutches, etc.) once your strength and confidence allow. 7. You may field coordinator the shower and let water strike your incision when you arrive home at least once daily. Do not take a tub bath, sit in a hot tub or go into a swimming pool until after your first recheck in the office. SPECIAL CARE INSTRUCTIONS: VERY IMPORTANT TO READ AND REVIEW A. Your surgical incision has been closed with a cosmetic suture under the skin that will dissolve in about 6 weeks. In 14 days, you can use a pair of clean scissors and cut the suture that is left outside of the skin at the ends of your incision. 1. The small skin tapes can be removed 7 days after surgery if they have not fallen off by that point. 2. You may keep the wound open to air as much as possible to promote healing after post-op day number 5 unless told otherwise by your doctor. 3. If you think the wound looks like it is becoming infected (redness or worsening drainage) and/or you are experiencing fever, chill or worsening back pain and muscle spasms, contact the office so that we may evaluate you as soon as possible. B. Complications are uncommon, but please contact us if you have any signs or symptoms of: 1. wound infection (fever higher than 102.5 degrees F, redness, separation of wound, drainage, or increasing pain from the incision) 2. blood clots in legs (pain, swelling, redness and warmth in legs) 3. urinary tract infection (fever higher than 102.5 degrees F, burning upon urination or increased frequency of urination) 4. nerve problems (inability to walk on your toes or heels, numbness, loss of bowel or bladder control) 5. any other symptoms that concern you C. Please call the office at if you have any concerns or questions about your operation or recovery. D. No smoking! Smoking drastically decreases the chance of a solid fusion. E. Do not take any anti-inflammatory medications (Indocin, Advil, Motrin, Aspirin, Naprosyn, etc.) as these may inhibit the chance of a solid fusion. Tylenol is okay to take for pain. MANAGING PAIN AFTER SPINAL SURGERY 1. Narcotic medication is intended for short-term use and will be provided for surgical pain. Surgical pain usually lasts for a period of 4-6 weeks. Narcotic medication includes Percocet, Vicodin, Darvocet, Tylenol #3 or Lortab. 2. Longer-term pain is more appropriately treated with non-narcotic medication such as Tylenol ES. 3. Muscle spasm is not appropriately treated with narcotics. Muscle relaxers such as Soma, Flexeril or Skelaxin can be used along with Tylenol ES. 4. Remember that we all live with some "aches and pains". This is not unusual or uncommon after an injury or as we get older. a. Back pain is expected and may include muscle spasms for 4 to 6 weeks after surgery. The pain should gradually improve. If the pain worsens for no apparent reason, please contact the office. b. Intermittent leg pain may also be experienced and should not be concerned about unless it worsens for no apparent reason. If so, please contact the office. 5. We will provide appropriate medication within the normal guidelines of their prescribed use. We will also be very cautious and aware of potential abuse and extended duration of patients' medication needs. a. Pain medications are for your comfort and to assist with sleep and rest so that the tissue can heal. They are not provided in order to return to normal activity and should not be used through the day. To do so or worsening pain at night can result from ongoing tissue damage and development of tolerance to the prescribed medicine. 6. Please allow 2-3 days to process refills. Prescriptions will not be mailed but must be picked up at the office. FOLLOW UP VISIT: Keep your scheduled follow-up appointment. Any questions, please call the office at . Prescriptions: New tramadol 50 mg Tablet 50 mg PO Q4H PRN (Reason: Pain, Moderate) Qty: 30 RF: 0 oxycodone 5 mg Tablet 5 mg PO Q4H PRN (Reason: Pain, Severe) Qty: 20 RF: 0 Continued levothyroxine 175 mcg Tablet 175 mcg PO QAM RF: 0 venlafaxine [Effexor XR] 75 mg Capsule,Extended Release 24hr 75 mg PO QAM RF: 0 risperidone 4 mg Tablet 4 mg PO HS RF: 0 sotalol 80 mg Tablet 80 mg PO BID RF: 0 aspirin 81 mg Tablet,Delayed Release (Dr/Ec) 81 mg PO HS RF: 0 pantoprazole 40 mg Tablet,Delayed Release (Dr/Ec) 40 mg PO QAM RF: 0 pravastatin 20 mg Tablet 20 mg PO HS RF: 0 melatonin 5 mg Capsule 5 mg PO HS RF: 0 Flovent HFA 110 mcg/actuation Hfa Aerosol Inhaler 2 puff INHALATION BID RF: 0 albuterol sulfate 90 mcg/actuation Hfa Aerosol Inhaler 1 puff INHALATION Q6H PRN (Reason: SOB) RF: 0 Stand-Alone Forms: [facility] Discharge Orders: Discharge Order (Routine); Ordered 09/09/18 Ordered By: Prosper Washington Admission Data Admit Date/Time: 09/06/18 12:27 Attending Provider: Prosper Washington Admit Provider: Prosper Washington Primary Care Provider: Choco Lopez Other Providers: Lokesh Rolle Service: Surgical Services Other Interventions: Discharge Summary Assessment (RN) Last Done: 09/09/18 08:14
== END 2018-09-09 11:03 | disposition home or self-care (01) | DRG 460 ==
LOC: ASU 07:52 → 3E 12:27

== ENCOUNTER 2021-02-09 10:40 | Observation (INO) ==
--- NOTE | 2021-02-09 10:51 | CT Scan Report ---
CT head/brain wo con CLINICAL HISTORY: 75 years-old Male with Stroke Alert. Acute strokelike symptoms TECHNIQUE: Multiple axial CT images of the head were obtained without contrast. A dose lowering tech nique was utilized adhering to the principles of ALARA. CT DOSE: 614.27 mGy.cm COMPARISON: None. FINDINGS: No acute intracranial hemorrhage, midline shift, intracranial mass, hydrocephalus, territorial ischem ia or abnormal extra-axial collection. Age-related involutional changes with ex vacuo ventriculomegal y. White matter hypodensities suggest chronic microvascular ischemic disease. Cerebral vascular calci fications. The calvarium is intact. The paranasal sinuses, mastoid air cells, and middle ear cavities are clear . IMPRESSION: No acute intracranial abnormality. ACT 112: Negative or not required by law. The above report was generated using voice recognition software. It may contain grammatical, syntax o r spelling errors. Electronically signed by: Tip Cano M.D. 02/09/2021 10:50 AM
[2021-02-09 11:03] LABS: Hematocrit (blood only) 45.8 % (42-52); Hemoglobin 15.3 g/dL (14.0-18.0); Mean Corpuscular Hemoglobin 29.9 pg (25-34); Mean Corpuscular Hgb Conc 33.4 g/dL (32-36); Mean Corpuscular Volume 89.6 fL (80-100); Mean Platelet Volume 8.7 fL (7.4-10.4); Platelet Count 274 K/uL (130-400); RDW Coefficient of Variation 13.6 % (11.5-14.5); RDW Standard Deviation 44.9 fL (36.4-46.3); Red Blood Count 5.11 M/uL (4.7-6.1); White Blood Count 6.47 K/uL (4.8-10.8)
--- NOTE | 2021-02-09 11:09 | Emergency Department Note ---
Impression & Plan Stroke-like symptoms, Syncope and collapse ED Provider Note INFORMANT: Patient and EMS ED PROVIDER(S): Gaurang Owusu MD CHIEF COMPLAINT: Strokelike symptom PLAN: Disposition: Admitted Condition: Good Outpatient prescription management: none Referral: None MEDICAL DECISION MAKING: Resented emergency room because of strokelike symptoms. On evaluation he was doing well and had an NIH of one for some mild asymmetry in the nasolabial fold. He still was dizzy. CT of the head was negative. CT angiography did not reveal any acute findings. Consultation was made with Dr. Calabrese of [facility] telestroke. Given the minor findings and negative testing TPA was not recommended. The patient was reassessed. He was doing well. He still was dizzy. He was given a dose of IV Valium. MR imaging was ordered as discussed with Poonam. Poonam did recommend considering anticoagulation if MR imaging negative. This was discussed with Manpreet Sinclair PA-C of the hospitalist service. The patient will need further management in the hospital and stroke work-up. Patient was evaluated by the team in the ER. Triage Nursing notes reviewed and agree them. Vital Signs: reviewed and remarkable for no significant abnormalities Differential diagnosis: CVA, TIA, infection, dehydration, metabolic abnormality, hypo/hyperglycemia, electrolyte disturbance, anemia, hypoxia, cardiac sources, intracerebral event, toxicologic, neurologic, as well as other pathologies. Diagnostics interpreted by me: ECG: Twelve-lead ECG reveals normal sinus rhythm at 63 bpm. Anterior and lat eral T wave inversions. No ST elevation. No PVCs or PACs. Cardiac Monitoring: Cardiac monitoring ordered by me: The patient was placed on continuous cardiac monitoring and observed. It revealed a normal sinus rhythm at 68 beats per minute without ectopy or evidence of dysrhythmia. Imaging studies: Head CT: A noncontrast CT scan of the head was performed and was negative for tumor, fracture, intracranial hemorrhage, or other acute pathology. HPI: The patient is a 75year old male who presents to the Emergency Room with complaints of strokelike symptoms. This started at 0 830 and is improved. The patient also notes the following associated symptoms, a brief syncopal episode, left-sided weakness, seeing spots occasionally, and a brief headache that started about an hour after the onset. The patient has taken no medication for relieving factors. Current pain is rated as 0/10. 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 He was directed to the ER by EMS for evaluation of possible strokelike symptoms as they were concerned about left-sided weakness. Patient has a history of A. fib and GI bleed. He is not anticoagulated because of the bleed. Pt denies fevers, chills, diaphoresis, visual changes, neck pain, chest pain, breathing difficulties, nausea, vomiting, abdominal pain, back pain, melena, hematochezia, urinary symptoms, numbness, lymphadenopathy, rash, or other complaints. ROS: See above HPI for pertinent positives & negatives. A total of 10 systems reviewed and were otherwise negative. PAST MEDICAL HISTORY:See Below , A. fib, GI bleed PAST SURGICAL HISTORY:See Below, FAMILY HISTORY:See Below SOCIAL HISTORY:See Below, retired HOME MEDICATIONS:See Below ALLERGIES:See Below VITALS:See Below PHYSICAL EXAMINATION: GENERAL: Awake, alert, well-appearing, in no distress HENT: Normocephalic, atraumatic. Oropharynx unremarkable. EYES: Normal conjunctiva. Sclera non-icteric. PERRLA. EOMI. Slight lateral nystagmus. NECK: Inspection normal. Non-tender. Supple. No nuchal rigidity. FROM. No masses. RESPIRATORY: Clear to auscultation. No wheezes. No rales. Normal respiratory effort. CARDIAC: Normal rate. Normal rhythm. No murmurs. No rubs. Extremities warm and well perfused. Pulses equal. No JVD. GI: Soft, non-distended. No tenderness to palpation. No rebound or guarding. No masses. RECTAL: Deferred. MUSCULOSKELETAL: Atraumatic. Chest examination reveals no tenderness. The back is symmetrical on inspection without obvious abnormality. There is no CVA tenderness to palpation. No joint edema. LOWER EXTREMITIES: Calves are equal size bilaterally and non-tender. No edema. No discoloration. NEURO: Normal sensorium. No sensory or motor deficits noted. Cranial nerves II through XII intact except for some slight left facial droop in the nasolabial fold. No drift. Normal [id number]. SKIN: No rash or jaundice noted. Gaurang Owusu MD Past Med/Surg History Medical History Acute prostatitis 01/02/19 - taking Levaquin daily Anemia HX Atrial fibrillation Paroxysmal, symptomatic, on Sotolol and ASA 81mg (no further anticoagulation due to h/o severe GI bleed) BPH (benign prostatic hyperplasia) CAD (coronary artery disease) Mild-moderate nonobstructive Chronic back pain Degenerative disc disease CORREA (dyspnea on exertion) At cardiology office visit in June, pt admitted his CORREA felt worse than noe olmedo. Cardio updated echo and had patient wear pulse ox overnight to rule out issues with CPAP/ADELE. Both WNL. Fusion of spine lumbar GERD (gastroesophageal reflux disease) GI bleed History of, ~[id number]. Pt reports 2 units of blood transfused Hyperlipidemia Hypothyroidism Osteoarthritis Sleep apnea CPAP Surgical History History of arthroscopy LEFT KNEE X2 History of cardiac cath X3. NO STENTS. History of colonoscopy History of esophagogastroduodenoscopy (EGD) History of lumbar fusion 09/06/18 --> MAC 3, ETT 8.0, grade view I. History of total knee replacement LEFT KNEE Hx of transurethral resection of prostate Family History Grandmother (Paternal) FHx: leukemia Grandfather (Paternal) No problems noted. Grandfather Gastric cancer Father Cardiac disorder Hypertension Nephrolithiasis Mother Cardiac disorder Brother Hypertension Grandmother Gastric cancer Social History Smoking Status: Never smoker Second Hand Exposure: No; Do You Dip or Chew Tobacco: No; Tobacco Cessation Education Requested by Patient: No Hx Alcohol Use: No Hx Substance Use: No Preferred Language: Libyan Communication Ability: Effective Washing Machine Assembler Required: No Beliefs That Will Affect Care: None Current Living Situation: Family Feels Safe at Home: Yes Safety Concerns: Feels Safe At This Time Assistive Devices: None Allergies Allergies Allergy/AdvReac Type Severity Reaction Status Date / Time Quinolones AdvReac Achilles Verified 06/24/19 11:23 Tendon Rupture Home Meds Home Medications Medication Instructions Recorded Confirmed albuterol sulfate 90 mcg/actuation 1 puff INHALATION Q6H PRN 08/20/18 02/09/21 aerosol inhaler aspirin 81 mg tablet,delayed 81 mg PO HS 08/20/18 02/09/21 release fluticasone propionate 110 2 puff INHALATION BID 08/20/18 02/09/21 mcg/actuation HFA aerosol inhaler (Flovent HFA) levothyroxine 175 mcg tablet 175 mcg PO QAM 08/20/18 02/09/21 melatonin 5 mg capsule 5 mg PO HS 08/20/18 02/09/21 pantoprazole 40 mg tablet,delayed 40 mg PO QAM 08/20/18 02/09/21 release (Protonix) pravastatin 20 mg tablet 20 mg PO HS 08/20/18 02/09/21 risperidone 4 mg tablet 4 mg PO HS 08/20/18 02/09/21 sotalol 80 mg tablet 80 mg PO BID 08/20/18 02/09/21 venlafaxine 75 mg capsule,extended 75 mg PO QAM 08/20/18 02/09/21 release 24 hr (Effexor XR) Results & Data (ED) Vital Signs Vital Signs - 24 hr 02/09/21 10:50 02/09/21 10:55 02/09/21 10:56 Temperature 36.5 C Temperature Source Oral Pulse Rate - Lying Pulse Rate - Sitting Pulse Rate 67 64 Pulse Rate [Apical] Pulse Rate from SpO2 Sensor 66 Respiratory Rate 18 18 Respiratory Effort / Characteristics Non-Labored Respiratory Depth Normal Blood Pressure - Lying Blood Pressure - Sitting Blood Pressure 145/115 H 145/113 H Blood Pressure [Right Arm] Blood Pressure Mean 125 123 Blood Pressure Mean [Right Arm] Pulse Oximetry 90 98 98 Oxygen Delivery Method Room Air Room Air Sepsis Recent Fever Within 48 Hours No Sepsis New/Unexplained Change in Mental Status No Sepsis Action Taken by Nursing No Action Required 02/09/21 11:00 02/09/21 11:01 02/09/21 11:25 Temperature Temperature Source Pulse Rate - Lying Pulse Rate - Sitting Pulse Rate 66 65 66 Pulse Rate [Apical] Pulse Rate from SpO2 Sensor 64 65 Respiratory Rate 18 17 13 Respiratory Effort / Characteristics Respiratory Depth Blood Pressure - Lying Blood Pressure - Sitting Blood Pressure 145/106 H Blood Pressure [Right Arm] Blood Pressure Mean 119 Blood Pressure Mean [Right Arm] Pulse Oximetry 99 98 Oxygen Delivery Method Sepsis Recent Fever Within 48 Hours Sepsis New/Unexplained Change in Mental Status Sepsis Action Taken by Nursing 02/09/21 11:26 02/09/21 11:30 02/09/21 11:31 Temperature Temperature Source Pulse Rate - Lying Pulse Rate - Sitting Pulse Rate 68 63 Pulse Rate [Apical] 64 Pulse Rate from SpO2 Sensor 68 63 Respiratory Rate 18 12 14 Respiratory Effort / Characteristics Non-Labored Respiratory Depth Normal Blood Pressure - Lying Blood Pressure - Sitting Blood Pressure 138/98 155/92 H Blood Pressure [Right Arm] 155/92 H Blood Pressure Mean 111 113 Blood Pressure Mean [Right Arm] 113 Pulse Oximetry 98 98 98 Oxygen Delivery Method Room Air Sepsis Recent Fever Within 48 Hours Sepsis New/Unexplained Change in Mental Status Sepsis Action Taken by Nursing 02/09/21 11:40 02/09/21 11:45 02/09/21 11:50 Temperature Temperature Source Pulse Rate - Lying Pulse Rate - Sitting Pulse Rate 65 60 62 Pulse Rate [Apical] Pulse Rate from SpO2 Sensor 65 61 62 Respiratory Rate 17 16 22 Respiratory Effort / Characteristics Respiratory Depth Blood Pressure - Lying Blood Pressure - Sitting Blood Pressure 153/100 H Blood Pressure [Right Arm] Blood Pressure Mean 117 Blood Pressure Mean [Right Arm] Pulse Oximetry 97 98 98 Oxygen Delivery Method Sepsis Recent Fever Within 48 Hours Sepsis New/Unexplained Change in Mental Status Sepsis Action Taken by Nursing 02/09/21 11:55 02/09/21 11:58 02/09/21 12:00 Temperature Temperature Source Pulse Rate - Lying 58 L Pulse Rate - Sitting 63 Pulse Rate 62 61 Pulse Rate [Apical] Pulse Rate from SpO2 Sensor 63 Respiratory Rate 24 19 Respiratory Effort / Characteristics Respiratory Depth Blood Pressure - Lying 171/102 H Blood Pressure - Sitting 167/115 H Blood Pressure 167/115 H Blood Pressure [Right Arm] Blood Pressure Mean 132 Blood Pressure Mean [Right Arm] Pulse Oximetry 98 Oxygen Delivery Method Sepsis Recent Fever Within 48 Hours Sepsis New/Unexplained Change in Mental Status Sepsis Action Taken by Nursing 02/09/21 12:01 02/09/21 12:10 02/09/21 13:38 Temperature Temperature Source Pulse Rate - Lying Pulse Rate - Sitting Pulse Rate 61 58 L Pulse Rate [Apical] Pulse Rate from SpO2 Sensor Respiratory Rate 20 18 11 L Respiratory Effort / Characteristics Respiratory Depth Blood Pressure - Lying Blood Pressure - Sitting Blood Pressure 162/107 H Blood Pressure [Right Arm] Blood Pressure Mean 125 Blood Pressure Mean [Right Arm] Pulse Oximetry Oxygen Delivery Method Sepsis Recent Fever Within 48 Hours Sepsis New/Unexplained Change in Mental Status Sepsis Action Taken by Nursing 02/09/21 13:40 02/09/21 13:50 02/09/21 14:00 Temperature Temperature Source Pulse Rate - Lying Pulse Rate - Sitting Pulse Rate 61 63 Pulse Rate [Apical] Pulse Rate from SpO2 Sensor 61 63 Respiratory Rate 20 20 22 Respiratory Effort / Characteristics Respiratory Depth Blood Pressure - Lying Blood Pressure - Sitting Blood Pressure 167/104 H Blood Pressure [Right Arm] Blood Pressure Mean 125 Blood Pressure Mean [Right Arm] Pulse Oximetry 96 96 Oxygen Delivery Method Sepsis Recent Fever Within 48 Hours Sepsis New/Unexplained Change in Mental Status Sepsis Action Taken by Nursing 02/09/21 14:10 02/09/21 14:20 Temperature Temperature Source Pulse Rate - Lying Pulse Rate - Sitting Pulse Rate Pulse Rate [Apical] Pulse Rate from SpO2 Sensor Respiratory Rate 21 13 Respiratory Effort / Characteristics Respiratory Depth Blood Pressure - Lying Blood Pressure - Sitting Blood Pressure Blood Pressure [Right Arm] Blood Pressure Mean Blood Pressure Mean [Right Arm] Pulse Oximetry Oxygen Delivery Method Sepsis Recent Fever Within 48 Hours Sepsis New/Unexplained Change in Mental Status Sepsis Action Taken by Nursing Laboratory Data Result diagrams: 02/09/21 10:55 02/09/21 10:55 Lab Results 02/09/21 02/09/21 02/09/21 Range/Units 10:55 10:55 10:55 WBC 6.47 (4.8-10.8) K/uL RBC 5.11 (4.7-6.1) M/uL Hgb 15.3 (14.0-18.0) g/dL Hct 45.8 (42-52) % MCV 89.6 (80-100) fL MCH 29.9 (25-34) pg MCHC 33.4 (32-36) g/dL RDW Std Deviation 44.9 (36.4-46.3) fL RDW Coeff of Rj 13.6 (11.5-14.5) % Plt Count 274 (130-400) K/uL MPV 8.7 (7.4-10.4) fL PT 9.8 (9.0-12.0) Seconds INR 1.0 (0.9-1.1) APTT 27.9 (21.0-31.0) Seconds PTT Ratio 1.1 Sodium 133 L (136-145) mmol/L Potassium 4.5 (3.5-5.1) mmol/L Chloride 101 (98-107) mmol/L Carbon Dioxide 27 (21-32) mmol/L Anion Gap 5.0 (3-11) BUN 18 (7-18) mg/dl Creatinine 0.97 (0.6-1.4) mg/dl Est Cr Clr Drug Dosing 79.8 ml/min Est GFR ( Amer) 86.9 ml/min Est GFR (Non-Af Amer) 75.0 ml/min BUN/Creatinine Ratio 18.8 (10-20) Glucose 113 H (70-99) mg/dl Calcium 9.1 (8.5-10.1) mg/dl Magnesium 2.4 (1.8-2.4) mg/dl Total Bilirubin 0.4 (0.2-1) mg/dl AST 18 (15-37) U/L ALT 22 (12-78) Alkaline Phosphatase 70 (45-117) U/L Total Protein 7.6 (6.4-8.2) gm/dl Albumin 3.3 L (3.4-5.0) gm/dl Globulin 4.3 H (2.5-4.0) gm/dl Albumin/Globulin Ratio 0.8 L (0.9-2) SARS-CoV-2, RNA, NAAT (NEGATIVE) 02/09/21 Range/Units 13:41 WBC (4.8-10.8) K/uL RBC (4.7-6.1) M/uL Hgb (14.0-18.0) g/dL Hct (42-52) % MCV (80-100) fL MCH (25-34) pg MCHC (32-36) g/dL RDW Std Deviation (36.4-46.3) fL RDW Coeff of Rj (11.5-14.5) % Plt Count (130-400) K/uL MPV (7.4-10.4) fL PT (9.0-12.0) Seconds INR (0.9-1.1) APTT (21.0-31.0) Seconds PTT Ratio Sodium (136-145) mmol/L Potassium (3.5-5.1) mmol/L Chloride (98-107) mmol/L Carbon Dioxide (21-32) mmol/L Anion Gap (3-11) BUN (7-18) mg/dl Creatinine (0.6-1.4) mg/dl Est Cr Clr Drug Dosing ml/min Est GFR ( Amer) ml/min Est GFR (Non-Af Amer) ml/min BUN/Creatinine Ratio (10-20) Glucose (70-99) mg/dl Calcium (8.5-10.1) mg/dl Magnesium (1.8-2.4) mg/dl Total Bilirubin (0.2-1) mg/dl AST (15-37) U/L ALT (12-78) Alkaline Phosphatase (45-117) U/L Total Protein (6.4-8.2) gm/dl Albumin (3.4-5.0) gm/dl Globulin (2.5-4.0) gm/dl Albumin/Globulin Ratio (0.9-2) SARS-CoV-2, RNA, NAAT NEGATIVE (NEGATIVE) Administered Medications Sodium Chloride (Nss 1000ml) 1,000 mls @ 125 mls/hr IV .Q8H STA Stop: 02/09/21 19:51 Last Admin: 02/09/21 12:11 Dose: 125 mls/hr Documented by: [id number] Discontinued Medications Diazepam (Diazepam 5 Mg/Ml Inj 10ml Vial) 2.5 mg IV NOW STA Stop: 02/09/21 11:53 Last Admin: 02/09/21 12:11 Dose: 2.5 mg Documented by: [id number] Ioversol (Optiray 320 125ml) 150 ml IV ONCE ONE Stop: 02/09/21 11:30 Last Admin: 02/09/21 11:29 Dose: 150 ml Documented by: [id number] Imaging Data Radiologist's Impression: Head CT 02/09/21 10:41 CT head/brain wo con CLINICAL HISTORY: 75 years-old Male with Stroke Alert. Acute strokelike symptoms TECHNIQUE: Multiple axial CT images of the head were obtained without contrast. A dose lowering technique was utilized adhering to the principles of ALARA. CT DOSE: 614.27 mGy.cm COMPARISON: None. FINDINGS: No acute intracranial hemorrhage, midline shift, intracranial mass, hydrocephalus, territorial ischemia or abnormal extra-axial collection. Age- related involutional changes with ex vacuo ventriculomegaly. White matter hypodensities suggest chronic microvascular ischemic disease. Cerebral vascular calcifications. The calvarium is intact. The paranasal sinuses, mastoid air cells, and middle ear cavities are clear. IMPRESSION: No acute intracranial abnormality. ACT 112: Negative or not required by law. The above report was generated using voice recognition software. It may contain grammatical, syntax or spelling errors. Electronically signed by: Tip Cano M.D. 02/09/2021 10:50 AM Head CTA 02/09/21 11:00 HEAD & NECK CTA HISTORY: Stroke symptoms. stroke TECHNIQUE: Multiaxial CT images of the head were performed following the intravenous administration of contrast to evaluate the major cerebral vessels. Multiaxial CT images of the neck were also performed following the intravenous administration of contrast to evaluate the major cervical vessels. Maximum intensity projection images were also obtained. A dose lowering technique was utilized adhering to the principles of ALARA. COMPARISON: None. FINDINGS: There is no mass, hematoma, midline shift, or acute infarct. Visualized intracranial internal carotid arteries, distal vertebral arteries, and basilar artery are widely patent. There is no significant stenosis, occlusion, or aneurysm seen within the bilateral ACAs, MCAs, or renewals manager. The major dural venous sinuses are patent. Mild calcified plaque within the bilateral carotid siphons. The aortic arch and proximal great vessels are widely patent. There is no significant stenosis, occlusion, or dissection identified within the bilateral common carotid, internal carotid, or vertebral arteries. Moderate emphysema. Mild calcified plaque within the bilateral carotid bifurcations. IMPRESSION: 1. No significant stenosis, occlusion, or aneurysm within the [place]. 2. No significant stenosis, occlusion, or dissection identified within the carotid or vertebral arteries. ACT 112: Negative or not required by law. Electronically signed by: Mendoza Villalta M.D. 02/09/2021 11:44 AM Neck CTA 02/09/21 11:00 HEAD & NECK CTA HISTORY: Stroke symptoms. stroke TECHNIQUE: Multiaxial CT images of the head were performed following the intravenous administration of contrast to evaluate the major cerebral vessels. Multiaxial CT images of the neck were also performed following the intravenous administration of contrast to evaluate the major cervical vessels. Maximum intensity projection images were also obtained. A dose lowering technique was utilized adhering to the principles of ALARA. COMPARISON: None. FINDINGS: There is no mass, hematoma, midline shift, or acute infarct. Visualized intracranial internal carotid arteries, distal vertebral arteries, and basilar artery are widely patent. There is no significant stenosis, occlusion, or aneurysm seen within the bilateral ACAs, MCAs, or renewals manager. The major dural venous sinuses are patent. Mild calcified plaque within the bilateral carotid siphons. The aortic arch and proximal great vessels are widely patent. There is no significant stenosis, occlusion, or dissection identified within the bilateral common carotid, internal carotid, or vertebral arteries. Moderate emphysema. Mild calcified plaque within the bilateral carotid bifurcations. IMPRESSION: 1. No significant stenosis, occlusion, or aneurysm within the [place]. 2. No significant stenosis, occlusion, or dissection identified within the carotid or vertebral arteries. ACT 112: Negative or not required by law. Electronically signed by: Mendoza Villalta M.D. 02/09/2021 11:44 AM Brain MRI 02/09/21 11:44 MRI OF THE BRAIN WITHOUT IV CONTRAST CLINICAL HISTORY: Dizziness. Stroke like symptoms. COMPARISON STUDY: CT of the brain dated 02/09/2021. TECHNIQUE: MRI of the brain was performed utilizing various T1 and T2-weighted sequences in the axial, sagittal, and coronal planes. IV contrast was not administered for this examination. The examination is degraded by motion artifact. FINDINGS: Brain parenchyma: There is age-related involutional change noting moderate subcortical and periventricular microangiopathic disease. There is no hemorrhage or mass effect. There is no restricted diffusion to suggest acute ischemia. Pitt-white matter differentiation is preserved. No extra-axial fluid collection is seen. The cerebellar tonsils are normal in configuration. Ventricles, sulci, and cisterns: Prominent secondary to involutional change. Pituitary and sella: Unremarkable. Intracranial vasculature: Normal flow voids are maintained at the skull base. Orbits: The bony orbits are grossly intact. Orbital contents are normal in appearance. Sinuses and mastoids: Clear. Calvarium: Unremarkable. Cervical cord: Partially visualized cervical spinal cord is normal in morphology and signal intensity. IMPRESSION: No acute intracranial abnormality. ACT 112: Negative or not required by law. Electronically signed by: Franco Mares M.D. 02/09/2021 1:12 PM Discharge Plan Visit Data Chief Complaint: Stroke Alert Stated Complaint: STROKE ALERT ED Provider: Gaurang Owusu Discharge Problem: Stroke-like symptoms, Syncope and collapse Discharge Instructions Interventions: ED Discharge Assessment Last Done: 02/09/21 16:21
[2021-02-09 11:22] LABS: Albumin Level 3.3 gm/dl (3.4-5.0); BUN Creatinine Ratio 18.8 (10-20); Calcium 9.1 mg/dl (8.5-10.1); Creatinine Clr Calc Pharmacy 79.8 ml/min; Est GFR (African American) 86.9 ml/min; Magnesium 2.4 mg/dl (1.8-2.4); Potassium 4.5 mmol/L (3.5-5.1)
[2021-02-09 11:25] LABS: Albumin Globulin Ratio 0.8 (0.9-2); Bilirubin,Total 0.4 mg/dl (0.2-1); Globulin 4.3 gm/dl (2.5-4.0); Total Protein 7.6 gm/dl (6.4-8.2)
[2021-02-09] MEDS ORDERED: OPTIRAY 320 125ml IV ONE (11:29)
[2021-02-09 11:32] LABS: Partial Thromboplastin Ratio 1.1; Partial Thromboplastin Time 27.9 Seconds (21.0-31.0); Prothrombin Time 9.8 Seconds (9.0-12.0)
--- NOTE | 2021-02-09 11:45 | CT Scan Report ---
HEAD & NECK CTA HISTORY: Stroke symptoms. stroke TECHNIQUE: Multiaxial CT images of the head were performed following the intravenous administration o f contrast to evaluate the major cerebral vessels. Multiaxial CT images of the neck were also perform ed following the intravenous administration of contrast to evaluate the major cervical vessels. Maxim um intensity projection images were also obtained. A dose lowering technique was utilized adhering to the principles of ALARA. COMPARISON: None. FINDINGS: There is no mass, hematoma, midline shift, or acute infarct. Visualized intracranial internal carotid arteries, distal vertebral arteries, and basilar artery are widely patent. There is no significant s tenosis, occlusion, or aneurysm seen within the bilateral ACAs, MCAs, or dual hose cementer. The major dural venous sinuses are patent. Mild calcified plaque within the bilateral carotid siphons. The aortic arch and proximal great vessels are widely patent. There is no significant stenosis, occ lusion, or dissection identified within the bilateral common carotid, internal carotid, or vertebral arteries. Moderate emphysema. Mild calcified plaque within the bilateral carotid bifurcations. IMPRESSION: 1. No significant stenosis, occlusion, or aneurysm within the [place]. 2. No significant stenosis, occlusion, or dissection identified within the carotid or vertebral arter ies. ACT 112: Negative or not required by law. Electronically signed by: Mendoza Villalta M.D. 02/09/2021 11:44 AM
--- NOTE | 2021-02-09 11:45 | CT Scan Report ---
HEAD & NECK CTA HISTORY: Stroke symptoms. stroke TECHNIQUE: Multiaxial CT images of the head were performed following the intravenous administration o f contrast to evaluate the major cerebral vessels. Multiaxial CT images of the neck were also perform ed following the intravenous administration of contrast to evaluate the major cervical vessels. Maxim um intensity projection images were also obtained. A dose lowering technique was utilized adhering to the principles of ALARA. COMPARISON: None. FINDINGS: There is no mass, hematoma, midline shift, or acute infarct. Visualized intracranial internal carotid arteries, distal vertebral arteries, and basilar artery are widely patent. There is no significant s tenosis, occlusion, or aneurysm seen within the bilateral ACAs, MCAs, or production sorter. The major dural venous sinuses are patent. Mild calcified plaque within the bilateral carotid siphons. The aortic arch and proximal great vessels are widely patent. There is no significant stenosis, occ lusion, or dissection identified within the bilateral common carotid, internal carotid, or vertebral arteries. Moderate emphysema. Mild calcified plaque within the bilateral carotid bifurcations. IMPRESSION: 1. No significant stenosis, occlusion, or aneurysm within the [place]. 2. No significant stenosis, occlusion, or dissection identified within the carotid or vertebral arter ies. ACT 112: Negative or not required by law. Electronically signed by: Mendoza Villalta M.D. 02/09/2021 11:44 AM
[2021-02-09] MEDS ORDERED: SODIUM CHLORIDE 0.9% 1000ML 1,000 ML IV STA (11:52)
--- NOTE | 2021-02-09 12:31 | History & Physical Report ---
Date of Service February 09, 2021 Assessment & Plan (1) Stroke-like symptoms: (2) Vertigo: (3) Near syncope: (4) Paroxysmal atrial fibrillation: Plan: Mr. 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 Patient was in his usual state of health this morning, and while he was shaving, moving his head around he developed the onset of vertigo/dizziness and ? near syncopal episode in which he fell forward toward the mirror, but quickly caught himself on the bathroom sink -- he did not have loss of consciousness -- he felt like he had some black spot in both of his eyes that were coming and going. Following that, he lied down on the couch and called his daughter who lives next door and she came over to check on him. At that point, the patient described some left-sided numbness and tingling, particularly in his left arm and questionably had a mild left facial droop. His daughter drove him to his finance business partner's office (Dr. Stephen). Patient briefly had a generalized headache about an hour after the onset of symptoms as well -- which has also resolved. EMS was subsequently activated and he was brought to the ER via ambulance. By the time he arrived to the ER the left arm numbness/tingling and visual disturbance had resolved but his vertigo has persisted -- especially with head movement. CTA of the head and neck showed no evidence of occlusion, significant stenosis, or dissection. MRI shows age related involutional changes and microangiopathic changes but not any acute CVA (ischemic or evidence of hemorrhage). Patient is currently in a normal sinus rhythm states that he has not had any atrial fibrillation several months ( he is typically symptomatic with AFib). With his presentation with stroke-like symptoms, history of paroxysmal atrial fibrillation, and an elevated [id number] of 6 (correlating with a 9.8% annual stroke risk) -- anticoagulation is indicated. 1. Admit to telemetry unit. 2. Check Echocardiogram with bubble study. 3. We reviewed his MRI results and CTA results. 4. Consult neurology. 5. PT Eval and treat. 6. OT Eval and treat. 7. Continue Aspirin 81 mg daily. 8. Add Xarelto 20 mg daily. (5) CAD (coronary artery disease): Plan: Mild to moderate non-obstructive CAD, asymptomatic. -- Continue beta vida, aspirin, statin. History of Present Illness Chief Complaint: -- TIA vs CVA. -- Syncopal Episode. -- Paroxysmal Atrial Fibrillation. Primary Care Provider: Choco Lopez MD Mr. 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 Patient was in his usual state of health this morning, and while he was shaving, moving his head around he developed the onset of vertigo/dizziness and ? near syncopal episode in which he fell forward toward the mirror, but quickly caught himself on the bathroom sink -- he did not have loss of consciousness -- he felt like he had some black spot in both of his eyes that were coming and going. Following that, he lied down on the couch and called his daughter who lives next door and she came over to check on him. At that point, the patient described some left-sided numbness and tingling, particularly in his left arm and questionably had a mild left facial droop. His daughter drove him to his finance business partner's office (Dr. Stephen). Patient briefly had a generalized headache about an hour after the onset of symptoms as well -- which has also resolved. EMS was subsequently activated and he was brought to the ER via ambulance. By the time he arrived to the ER the left arm numbness/tingling and visual disturbance had resolved but his vertigo has persisted -- especially with head movement. Patient does admit to chronic stable dyspnea on exertion, uncertain if it is worsened over the past year. Generally responds well with his inhalers. Dolly coughlin denies having any recent atrial fibrillation to his knowledge and he is typically symptomatic with atrial fibrillation. Patient has not had any exertional chest pain, heaviness, tightness, pressure, or discomfort. He denies any exertional neck, jaw, back, arm pain. No orthopnea or PND. No recent palpitations. He does have a history of prior syncopal episodes which have not fully been explained. His most recent ECHOCARDIOGRAM 07/05/2018 showed: -- Normal LV size, wall motion, and systolic function. -- LVEF 50% to 55%. -- Mild concentric LVH. -- Grade I LV diastolic dysfunction. -- Moderately dilated LA. -- Mild AI. -- Mild MR. Allergies Allergy/AdvReac Type Severity Reaction Status Date / Time Quinolones AdvReac Achilles Verified 06/24/19 11:23 Tendon Rupture Home Medications Medication Instructions Recorded Confirmed Type albuterol sulfate 90 mcg/actuation 1 puff INHALATION Q6H PRN 08/20/18 02/09/21 History aerosol inhaler aspirin 81 mg tablet,delayed 81 mg PO HS 08/20/18 02/09/21 History release fluticasone propionate 110 2 puff INHALATION BID 08/20/18 02/09/21 History mcg/actuation HFA aerosol inhaler (Flovent HFA) levothyroxine 175 mcg tablet 175 mcg PO QAM 08/20/18 02/09/21 History melatonin 5 mg capsule 5 mg PO HS 08/20/18 02/09/21 History pantoprazole 40 mg tablet,delayed 40 mg PO QAM 08/20/18 02/09/21 History release (Protonix) pravastatin 20 mg tablet 20 mg PO HS 08/20/18 02/09/21 History risperidone 4 mg tablet 4 mg PO HS 08/20/18 02/09/21 History sotalol 80 mg tablet 80 mg PO BID 08/20/18 02/09/21 History venlafaxine 75 mg capsule,extended 75 mg PO QAM 08/20/18 02/09/21 History release 24 hr (Effexor XR) Past Med/Surg History Medical History Acute prostatitis 01/02/19 - taking Levaquin daily Anemia HX Atrial fibrillation Paroxysmal, symptomatic, on Sotolol and ASA 81mg (no further anticoagulation due to h/o severe GI bleed) BPH (benign prostatic hyperplasia) CAD (coronary artery disease) Mild-moderate nonobstructive Chronic back pain Degenerative disc disease CORREA (dyspnea on exertion) At cardiology office visit in June, pt admitted his CORREA felt worse than baseline. Cardio updated echo and had patient wear pulse ox overnight to rule out issues with CPAP/ADELE. Both WNL. Fusion of spine lumbar GERD (gastroesophageal reflux disease) GI bleed History of, ~[id number]. Pt reports 2 units of blood transfused Hyperlipidemia Hypothyroidism Osteoarthritis Sleep apnea CPAP Surgical History History of arthroscopy LEFT KNEE X2 History of cardiac cath X3. NO STENTS. History of colonoscopy History of esophagogastroduodenoscopy (EGD) History of lumbar fusion 09/06/18 --> MAC 3, ETT 8.0, grade view I. History of total knee replacement LEFT KNEE Hx of transurethral resection of prostate Family History Grandmother (Paternal) FHx: leukemia Grandfather (Paternal) No problems noted. Grandfather Gastric cancer Father Cardiac disorder Hypertension Nephrolithiasis Mother Cardiac disorder Brother Hypertension Grandmother Gastric cancer Social History Smoking Status: Never smoker Second Hand Exposure: No; Do You Dip or Chew Tobacco: No; Tobacco Cessation Education Requested by Patient: No Hx Alcohol Use: No Hx Substance Use: No Preferred Language: [place] Communication Ability: Effective Human Capital Manager Required: No Beliefs That Will Affect Care: None Current Living Situation: Family Feels Safe at Home: Yes Safety Concerns: Feels Safe At This Time Assistive Devices: None Review of Systems Review of Systems: 10 point ROS was completed and is negative with the exception of what is mentioned in the HPI. Physical Exam Physical Exam: GENERAL: Patient in no acute distress. HEENT: Head is atraumatic, normocephalic. EOM's intact without nystagmus. He appears to have decreased tone of the left naso-labial fold (although his daughter feels he looks like this normally). No perioral cyanosis. Tongue protrudes in midline, uvula rises in midline on phonation. NECK: No JVD. JVP is not elevated. Carotid upstrokes are + 2 bilaterally without obvious bruits. CHEST/LUNGS: Clear to auscultation throughout all lung reeves. No wheezes, rales, or crackles. CVS: S1 and S2 are regular without obvious murmurs, gallops, or rubs. PMI is nondisplaced. No lifts, heaves, or thrills. No abdominal aortic or renal bruits. ABDOMINAL EXAM: Bowel sounds are present. No masses, organomegaly, or tenderness. EXTREMITIES: No clubbing or cyanosis. No edema. Intact radial pulses bilaterally. NEUROLOGIC EXAM: Patient is awake, alert, and oriented. Pleasant and cooperative. Answers questions appropriately. Speech is clear. Normal movement in all 4 extremities. Metal Can Inspector strength equal bilaterally. Normal and bilaterally symmetric strength in the major muscle groups of the upper and lower extremities. Gait pattern was not assessed. EKG 02/09/21: -- Normal sinus rhythm at 63 bpm. -- ST and T wave abnormalities in the anterolateral leads. -- Corrected QT interval is 430 msec. -- When compared to 01/13/2019 tracing; No significant change. Telecommunications Linesworker: -- NSR at normal rates. Results & Data Results & Data ([facility]) Vital Signs (Past 12 Hours) Vital Signs Temp Pulse Pulse Resp BP BP Pulse Ox 02/09/21 11:31 64 14 155/92 H 98 02/09/21 10:56 36.5 C 64 18 145/113 H 98 02/09/21 10:55 98 Laboratory Results Laboratory Results - last 24 hr 02/09/21 02/09/21 02/09/21 10:55 10:55 10:55 WBC 6.47 RBC 5.11 Hgb 15.3 Hct 45.8 MCV 89.6 MCH 29.9 MCHC 33.4 RDW Std Deviation 44.9 RDW Coeff of Rj 13.6 Plt Count 274 MPV 8.7 PT 9.8 INR 1.0 APTT 27.9 PTT Ratio 1.1 Sodium 133 L Potassium 4.5 Chloride 101 Carbon Dioxide 27 Anion Gap 5.0 BUN 18 Creatinine 0.97 Est Cr Clr Drug Dosing 79.8 Est GFR ( Amer) 86.9 Est GFR (Non-Af Amer) 75.0 BUN/Creatinine Ratio 18.8 Glucose 113 H Calcium 9.1 Magnesium 2.4 Total Bilirubin 0.4 AST 18 ALT 22 Alkaline Phosphatase 70 Total Protein 7.6 Albumin 3.3 L Globulin 4.3 H Albumin/Globulin Ratio 0.8 L Diagnostic Findings CTA HEAD/NECK 02/09/21: There is no mass, hematoma, midline shift, or acute infarct. Visualized intracranial internal carotid arteries, distal vertebral arteries, and basilar artery are widely patent. There is no significant stenosis, occlusion, or aneurysm seen within the bilateral ACAs, MCAs, or technology sales consultant. The major dural venous sinuses are patent. Mild calcified plaque within the bilateral carotid siphons. The aortic arch and proximal great vessels are widely patent. There is no significant stenosis, occlusion, or dissection identified within the bilateral common carotid, internal carotid, or vertebral arteries. Moderate emphysema. Mild calcified plaque within the bilateral carotid bifurcations. IMPRESSION: 1. No significant stenosis, occlusion, or aneurysm within the [place]. 2. No significant stenosis, occlusion, or dissection identified within the carotid or vertebral arteries. CTSCAN HEAD 02/09/21: No acute intracranial hemorrhage, midline shift, intracranial mass, hydrocephalus, territorial ischemia or abnormal extra-axial collection. Age- related involutional changes with ex vacuo ventriculomegaly. White matter hypodensities suggest chronic microvascular ischemic disease. Cerebral vascular calcifications. The calvarium is intact. The paranasal sinuses, mastoid air cells, and middle ear cavities are clear. IMPRESSION: No acute intracranial abnormality. MRI BRAIN 02/09/21: Brain parenchyma: There is age-related involutional change noting moderate subcortical and periventricular microangiopathic disease. There is no hemorrhage or mass effect. There is no restricted diffusion to suggest acute ischemia. Pitt-white matter differentiation is preserved. No extra-axial fluid collection is seen. The cerebellar tonsils are normal in configuration. Ventricles, sulci, and cisterns: Prominent secondary to involutional change. Pituitary and sella: Unremarkable. Intracranial vasculature: Normal flow voids are maintained at the skull base. Orbits: The bony orbits are grossly intact. Orbital contents are normal in appearance. Sinuses and mastoids: Clear. Calvarium: Unremarkable. Cervical cord: Partially visualized cervical spinal cord is normal in morphology and signal intensity. IMPRESSION: -- No acute intracranial abnormality. Medications Administered Medications albuterol sulfate 90 mcg/actuation aerosol inhaler 1 puff INHALATION Q6H PRN 08/20/18 [History Confirmed 06/24/19] aspirin 81 mg tablet,delayed release 81 mg PO HS 08/20/18 [History Confirmed 06/24/19] fluticasone propionate 110 mcg/actuation HFA aerosol inhaler (Flovent HFA) 2 puff INHALATION BID 08/20/18 [History Confirmed 06/24/19] levothyroxine 175 mcg tablet 175 mcg PO QAM 08/20/18 [History Confirmed 06/24/19] melatonin 5 mg capsule 5 mg PO HS 08/20/18 [History Confirmed 06/24/19] pantoprazole 40 mg tablet,delayed release (Protonix) 40 mg PO QAM 08/20/18 [History Confirmed 06/24/19] pravastatin 20 mg tablet 20 mg PO HS 08/20/18 [History Confirmed 06/24/19] risperidone 4 mg tablet 4 mg PO HS 08/20/18 [History Confirmed 06/24/19] sotalol 80 mg tablet 80 mg PO BID 08/20/18 [History Confirmed 06/24/19] venlafaxine 75 mg capsule,extended release 24 hr (Effexor XR) 75 mg PO QAM 08/20/18 [History Confirmed 06/24/19] hydrocodone 5 mg-acetaminophen 325 mg tablet ([place]) 1 - 2 tab PO Q6H PRN #18 tab 01/14/19 [Rx Confirmed 06/24/19] levofloxacin 750 mg tablet (Levaquin) 750 mg PO QAM 01/14/19 [History Confirmed 06/24/19] Home Medications Sodium Chloride (Nss 1000ml) 1,000 mls @ 125 mls/hr IV .Q8H STA Stop: 02/09/21 19:51 Last Admin: 02/09/21 12:11 Dose: 125 mls/hr Documented by: Code Status & VTE Plan Code Status Full Code VTE Prophylaxis Plan VTE Prophylaxis will be ordered: Yes Supervising Physician Co-Signing Physician Notes Reviewed documentation, discussed with PA. Agree with his note above. Patient has a history of paroxysmal atrial fibrillation but is not on anticoagulation secondary to her previous GI bleed. Patient had a transient episode as described, resolved by the time he presented to the emergency room. Patient will be admitted. Further work-up with neurology as noted. Patient was started on Xarelto and will have a 2D echo. Further work-up per neurology. PG Care Time/CCT Total # of Minutes Spent Total Time Spent with Patient: Total time spent is greater than 50% in coordination of care (as documented) at patient's floor/unit and/or counseling patient:44 Coding Level of Care Code 80385 Initial Inpt Care Lvl 3 Diagnoses Stroke-like symptoms R29.90 Vertigo R42 Near syncope R55 Paroxysmal atrial fibrillation I48.0 CAD (coronary artery disease) I25.10 Time Spent (min) 64
--- NOTE | 2021-02-09 13:09 | Electrocardiogram Report ---
Test Reason : Blood Pressure : / mmHG Vent. Rate : 063 BPM Atrial Rate : 063 BPM P-R Int : 144 ms QRS Dur : 088 ms QT Int : 422 ms P-R-T Axes : 030 022 074 degrees QTc Int : 431 ms Poor data quality, interpretation may be adversely affected Normal sinus rhythm Abnormal ECG When compared with ECG of 13-JAN-2019 12:33, No significant change was found Confirmed by Reynaldo Norman ([id number]) on 02/09/2021 1:09:07 PM Referred By: Confirmed By:Reynaldo Norman
--- NOTE | 2021-02-09 13:14 | Magnetic Resonance Report ---
MRI OF THE BRAIN WITHOUT IV CONTRAST CLINICAL HISTORY: Dizziness. Stroke like symptoms. COMPARISON STUDY: CT of the brain dated 02/09/2021. TECHNIQUE: MRI of the brain was performed utilizing various T1 and T2-weighted sequences in the axial , sagittal, and coronal planes. IV contrast was not administered for this examination. The examinatio n is degraded by motion artifact. FINDINGS: Brain parenchyma: There is age-related involutional change noting moderate subcortical and periventri cular microangiopathic disease. There is no hemorrhage or mass effect. There is no restricted diffusi on to suggest acute ischemia. Pitt-white matter differentiation is preserved. No extra-axial fluid co llection is seen. The cerebellar tonsils are normal in configuration. Ventricles, sulci, and cisterns: Prominent secondary to involutional change. Pituitary and sella: Unremarkable. Intracranial vasculature: Normal flow voids are maintained at the skull base. Orbits: The bony orbits are grossly intact. Orbital contents are normal in appearance. Sinuses and mastoids: Clear. Calvarium: Unremarkable. Cervical cord: Partially visualized cervical spinal cord is normal in morphology and signal intensity . IMPRESSION: No acute intracranial abnormality. ACT 112: Negative or not required by law. Electronically signed by: Franco Mares M.D. 02/09/2021 1:12 PM
[2021-02-09] MEDS ORDERED: diazePAM 2 MG TABLET PO PRN (16:45)
[2021-02-09] MEDS ORDERED: MECLIZINE 12.5 MG TAB PO PRN (16:45)
[2021-02-09] MEDS ORDERED: NITROGLYCERIN SL 0.4 MG/TAB TAB SL PRN (16:45)
[2021-02-09] MEDS ORDERED: ALUMINUM/MAGNESIUM SUSP 30 ML UDC PO PRN (16:45)
[2021-02-09] MEDS ORDERED: POLYETHYLENE (MIRALAX) 17 GM PACK PO PRN (16:45)
[2021-02-09] MEDS ORDERED: MoRPHine SULFATE 2 MG/ML CARP IV PRN (16:45)
[2021-02-09] MEDS ORDERED: ONDANSETRON INJ 2 MG/ML 2 ML VIAL IV PRN (16:45)
[2021-02-09] MEDS ORDERED: ALBUTEROL HFA 8 GM INHALER INH PRN (16:45)
[2021-02-09] MEDS ORDERED: MAGNESIUM HYDROXIDE SUSP 30 ML UDC PO PRN (16:45)
[2021-02-09] MEDS ORDERED: ZOLPIDEM TARTRATE 5 MG TAB PO PRN (16:45)
[2021-02-09] MEDS ORDERED: ACETAMINOPHEN 325 MG TAB PO PRN (16:45)
[2021-02-09] MEDS ORDERED: PNEUMOCOCCAL POLYSACCHARIDES 25 MCG/0.5 ML VIAL/SYR IM ONE (19:49)
[2021-02-09] MEDS: RIVAROXABAN 20 MG TAB PO SCH (21:15)
[2021-02-09] MEDS: risperiDONE 2 MG TABLET PO SCH (21:45)
[2021-02-09] MEDS: ASPIRIN 81 MG ECTAB PO SCH (21:45)
[2021-02-09] MEDS: MELATONIN 3 MG TAB PO SCH (21:45)
[2021-02-09] MEDS: SOTALOL HCL 80 MG TAB PO SCH (22:21)
[2021-02-09] MEDS: PRAVASTATIN SOD 20 MG TAB PO SCH (22:33)
[2021-02-09] MEDS: FLUTICASONE FUROATE 200MCG 14 PUFFS/INHALER INH SCH (22:38)
[2021-02-10] MEDS: LEVOTHYROXINE SODIUM 175 MCG TABLET PO SCH (06:22)
[2021-02-10] MEDS: PANTOprazole 40 MG TAB PO SCH (09:08)
[2021-02-10] MEDS: VENLAFAXINE HCL XR 75 MG CAPXR PO SCH (09:08)
[2021-02-10] MEDS: FLUTICASONE FUROATE 200MCG 14 PUFFS/INHALER INH SCH (09:09)
[2021-02-10] MEDS: SOTALOL HCL 80 MG TAB PO SCH ×2 (09:09→21:02)
--- NOTE | 2021-02-10 09:12 | Neurology Consultation ---
Date of Consultation February 10, 2021 Assessment & Plan (1) Positional vertigo: (2) Syncope and collapse: (3) Hypertension: (4) Atrial fibrillation: patient had an acute positional vertigo event February 09 with some residual positional vertigo. I believe it is referable to the left inner ear by history and exam. Otherwise, his neurologic examination is nonfocal with no deficits, meningeal signs, or encephalopathy. He did have some very slight nystagmus with left gaze at times. He has had BPPV in the past. He had a brief syncopal event ( which must of only lasted a couple of seconds because he did not collapse ), and when he "came to" he was still standing up. This was related to his acute vertigo. He had a headache with some left-sided symptoms for several hours yesterday. I suspect he had vaso spasm in lieu of his hypertension ( tends to have hypotension normally) which gave him the focal neurologic symptoms and headache (Migraine varient). MRI of the brain showed no stroke. I do not believe he technically had a TIA. He has a history of atrial fibrillation in the past and is now on Xarelto. Recommendations: 1. echocardiogram is pending. 2. Control blood pressure as you are doing, aiming for a mean arterial pressure of 95-100. 3. good check fasting lipid profile. 4. Treat vertigo with meclizine 25 milligrams 3 times a day as needed. Avoid benzodiazepines if possible. 5. Continue 81 milligram aspirin tablet daily. 6. Could follow-up with ENT as an outpatient to evaluate and treat his peripheral vertigo. Overall, I spent a total of 100 minutes with this case including review of records, review of MRI films, direct evaluation the patient at bedside, and discussion of the case with the patient and RN at bedside as well as Dr. Shay including differential diagnosis and treatment options. History of Present Illness Reason for Consultation: Patient is a 75-year-old, who I was asked to see at the request of Manpreet Sinclair PA-C, for neurologic consultation regarding possible TIA ( versus other). Requesting Physician: Manpreet Cheung Attending Physician: Vahid Shay History of Present Illness patient has a history of atrial fibrillation in the past but was never anticoagulated because of a history of significant GI bleed. Back in 2019 he had intermittent positional vertigo diagnosed as BPPV and had an Moe maneuver which resolved his symptoms. He did not have any real vertigo since. He has a history of depression and is on Risperdal and venlafaxine. He woke up at 07:30 on February 09 feeling his usual self. He has not been ill or had any other issues. Around 08, after eating breakfast, he was up shaving when he had the sudden onset of significant vertigo and within a few seconds he lost consciousness and woke up leaning against the mirror, to the left. He continued to have significant vertigo and lay down on the couch. His daughter brought him to the emergency room. He arrived to the emergency room February 09 at 10:50, with a temperature of 36.5, pulse 67 and regular, respiratory rate 17, blood pressure 145/115, and O2 saturation 95 percent. He was given an NIH stroke scale score of 1 due to a decreased nasolabial fold. In the ER he said that he had a headache at the top of his head of a dull nature for several hours he had some numbness and tingling with some weakness in his left arm and hand for up to 3 hours in the ER as well. tele Stroke consultation with Dr. Calabrese at [place] resulted in no tPA , due to minor symptoms that had improved. CBC was unremarkable. Chem profile revealed a sodium of 133. CT scan of the head was unremarkable. CT angiography of the head neck were unremarkable. MRI of the brain showed no acute stroke. There was mild generalized atrophy and [id number] old small vessel ischemic changes. I reviewed these films. He was continued on 81 milligram aspirin ( he has been on this chronically ) and he was put on Xarelto. He had vertigo most of yesterday of waxing and waning nature. It is improved this morning but he still has positional vertigo with head or eye movement. It is worse when he looks or turns to the left. He has no further headache, weakness, numbness, or vision problems. He has no tinnitus, hearing loss, or ear pain. When he has the vertigo he thinks it is in a clockwise motion. Allergies Allergy/AdvReac Type Severity Reaction Status Date / Time Quinolones AdvReac Achilles Verified 06/24/19 11:23 Tendon Rupture Home Medications Medication Instructions Recorded Confirmed Type albuterol sulfate 90 mcg/actuation 1 puff INHALATION Q6H PRN 08/20/18 02/09/21 History aerosol inhaler aspirin 81 mg tablet,delayed 81 mg PO HS 08/20/18 02/09/21 History release fluticasone propionate 110 2 puff INHALATION BID 08/20/18 02/09/21 History mcg/actuation HFA aerosol inhaler (Flovent HFA) levothyroxine 175 mcg tablet 175 mcg PO QAM 08/20/18 02/09/21 History melatonin 5 mg capsule 5 mg PO HS 08/20/18 02/09/21 History pantoprazole 40 mg tablet,delayed 40 mg PO QAM 08/20/18 02/09/21 History release (Protonix) pravastatin 20 mg tablet 20 mg PO HS 08/20/18 02/09/21 History risperidone 4 mg tablet 4 mg PO HS 08/20/18 02/09/21 History sotalol 80 mg tablet 80 mg PO BID 08/20/18 02/09/21 History venlafaxine 75 mg capsule,extended 75 mg PO QAM 08/20/18 02/09/21 History release 24 hr (Effexor XR) Patient History Medical History Acute prostatitis 01/02/19 - taking Levaquin daily Anemia HX Atrial fibrillation Paroxysmal, symptomatic, on Sotolol and ASA 81mg (no further anticoagulation due to h/o severe GI bleed) BPH (benign prostatic hyperplasia) CAD (coronary artery disease) Mild-moderate nonobstructive Chronic back pain Degenerative disc disease CORREA (dyspnea on exertion) At cardiology office visit in June, pt admitted his CORREA felt worse than baseline. Cardio updated echo and had patient wear pulse ox overnight to rule out issues with CPAP/ADELE. Both WNL. Fusion of spine lumbar GERD (gastroesophageal reflux disease) GI bleed History of, ~[id number]. Pt reports 2 units of blood transfused Hyperlipidemia Hypothyroidism Osteoarthritis Sleep apnea CPAP Surgical History History of arthroscopy LEFT KNEE X2 History of cardiac cath X3. NO STENTS. History of colonoscopy History of esophagogastroduodenoscopy (EGD) History of lumbar fusion 09/06/18 --> MAC 3, ETT 8.0, grade view I. History of total knee replacement LEFT KNEE Hx of transurethral resection of prostate Family History (Updated 02/10/21 @ 09:31 by Scottie Lechuga MD) Grandmother (Paternal) FHx: leukemia Grandfather (Paternal) No problems noted. Grandfather Gastric cancer Father , age 80 of cardiac condition Cardiac disorder Hypertension Nephrolithiasis Mother , age 66 of a cerebral event Cardiac disorder Cerebral aneurysm Brother Hypertension Grandmother Gastric cancer Social History Smoking Status: Former smoker Number of Years Since Quit: 43; Second Hand Exposure: No; Do You Dip or Chew Tobacco: No; Tobacco Cessation Education Requested by Patient: No Hx Alcohol Use: No Hx Substance Use: No Preferred Language: Belgian Communication Ability: Effective Car Salesperson Required: No Beliefs That Will Affect Care: None Current Living Situation: Alone current occupational status: retired 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 Feels Safe at Home: Yes Safety Concerns: Feels Safe At This Time Assistive Devices: None Review of Systems Constitutional: no fever, no fatigue and no weakness Eyes: no diplopia, no eye pain and no worsening vision Ear, Nose, Mouth, Throat: + dizziness; no ear pain, no tinnitus, no hearing loss, no snoring, no hoarseness and no dysphagia Respiratory: no cough and no dyspnea Cardiovascular: no chest pain, no palpitations and no lightheadedness Gastrointestinal: no abdominal pain, no nausea and no vomiting Musculoskeletal: no back pain, no neck pain, no radicular pain, no joint pain and no myalgia Integumentary: no rash and no lesions Neurologic: no gait abnormality, no localized weakness, no generalized weakness, no tingling, no numbness, no tremor(s), no abnormal movements, no headache(s), no abnormal speech, no confusion and no memory loss Psychiatric: no depression, no irritability, no anxiety, no difficulty concentrating, no confusion and no hallucinations Endocrine: no fatigue and no flushing Hematologic / Lymphatic: no easy bleeding and no easy bruising Allergy / Immunological: no urticaria and no problem reported Exam (Neuro) Physical Exam: The patient is right-handed. The patient is awake, alert, and attentive. Speech is normal without any aphasia or dysarthria. The patient can name objects, repeat phrases, and has normal spontaneous speech. Mentation and thought processes are intact, with orientation to person, place and time, and normal fund of knowledge. Attention and concentration are normal. Mood and affect are normal and appropriate. General appearance and grooming are normal. Short and long-term memory are intact. The discs are sharp with positive venous pulsations bilaterally. There are no exudates, hemorrhages, or blood vessel changes seen. Pupils are 4 mm bilaterally and reactive to light. Extraocular eye muscles are intact without nystagmus, al though with left gaze he had 2 beats of nystagmus on a couple of occasions which would dampen. Visual acuity and visual reeves seem normal grossly to confrontation. There are no deficits to sensation in the face in all 3 distributions of the fifth cranial nerve bilaterally. Corneal reflexes are positive bilaterally. Facial strength and symmetry was normal bilaterally. Hearing seems normal bilaterally. Palate moves well without asymmetry. There is normal sternocleidomastoid and trapezius (shoulder shrug) strength bilaterally. Tongue is midline with good strength bilaterally. Neck has a full range of motion without discomfort. There are no cervical bruits bilaterally. There are no cranial or ocular bruits. Heart has a soft sternal murmur. There is a regular rhythm and rate. Cervical, thoracic, and lumbar spine are nontender to palpation. Gait is narrow based, with good arm swing, turns, and stance. Balance is normal eyes open or closed. he feels pulled to the left when he sits up and when he stands. With outstretched arms there is no drift. There are no resting, postural, or action tremors. There is no ataxia with finger to nose testing. There is good facility in the hands. No other abnormal involuntary movements are noted. Motor strength is 5/5 diffusely in the arms bilaterally including deltoids, biceps, triceps, brachioradialis, wrist flexors and extensors, district manager in training, and intrinsic hand muscles. Motor strength is 5/5 diffusely in the legs bilaterally including hip flexors, quadriceps, hamstrings, gastrocnemius, tibialis anterior, tibialis posterior, and Peroneii muscles. Toe extensors are normal and there is good bulk in the extensor digitorum brevis muscles bilaterally. The limbs have good tone without rigidity or spasticity. There is no atrophy noted in the muscles. Muscle bulk is normal, there is no tenderness to palpation, no myotonia to percussion, and no fasciculations seen. Sensory examination is intact to touch and pin throughout all 4 limbs diffusely. Reflexes are 1/4 in the biceps, triceps, brachioradialis, quadriceps, and Achilles tendons bilaterally. There is no clonus bilaterally. Toes are downgoing with plantar stimulation bilaterally. Peripheral pulses are present and of normal quality distally in all 4 limbs. There is no peripheral edema noted in the limbs. Results & Data ([facility]) Vital Signs (Past 12 Hours) Vital Signs Temp Pulse Resp BP Pulse Ox 02/10/21 07:59 36.6 C 79 20 152/98 H 95 02/10/21 03:30 36.7 C 71 18 141/93 H 94 02/09/21 23:54 36.4 C L 74 18 108/73 97 PG Care Time/CCT Total # of Minutes Spent Total Time Spent with Patient: Total time spent is greater than 50% in coordination of care (as documented) at patient's floor/unit and/or counseling patient: Coding Level of Care Code 86908 Initial Inpt Care Lvl 3 Diagnoses Positional vertigo Syncope and collapse R55 Hypertension I10 Atrial fibrillation I48.91
--- NOTE | 2021-02-10 10:12 | XCELERA ---
[id number] \\[id number]
[2021-02-10] MEDS: RIVAROXABAN 20 MG TAB PO SCH (17:01)
[2021-02-10] MEDS: MECLIZINE 12.5 MG TAB PO SCH ×2 (19:26→21:02)
--- NOTE | 2021-02-10 20:22 | Hospitalist Progress Note ---
Date of Service February 10, 2021 Assessment & Plan (1) Vertigo: Plan: felt to be peripheral in origin MRI brain negative for CVA or central cause of vertigo suspect either BPV vs viral induced vestibular neuronitis (he had a URI in the last 1-2 weeks) regardless need to Rx with meclizine will schedule the meclizine 12.5mg TID appreciate PT eval; Moe done, this did not help his vertigo, however agree with neurology that ENT referral post-discharge is recommended he denies any tinnitus/hearing changes to suggest Meniere's (2) Near syncope: Plan: in the setting of #1, headache, etc see neurology consult and their thoughts regarding the etiology of this episode (?arterial vasospasm leading to headache and near-syncope) no recurrent episodes of near-syncope tele stable (3) Paroxysmal atrial fibrillation: Plan: on Sotalol for rhythm control but previously NOT anticoagulated due to prior history of GI bleeding admitting physician initiated Xarelto 20mg daily due to concern he had had a TIA at time of this admission however, neurology feels this was NOT a TIA [id number], I do agree with admitting physician that CHADs-VAsc score is very high and ideally he should be on anticoagulation before discharge there should be a discussion with patient about risks/benefits of starting/keeping him on Xarelto (4) CAD (coronary artery disease): Plan: Mild to moderate non-obstructive CAD by history Continue beta blocke (sotalol), aspirin, statin (5) Hypertension: Plan: elevated readings at presentation, but they are trending towards normal now. he reports h/o LOW BPs in the past and prior attempts to medicate high readings led to near-syncope. THUS - will NOT start any new BP agents while here. (6) BPH (benign prostatic hyperplasia): Plan: no symptoms not on meds at baseline (7) Asthma: Plan: asymptomatic at this time albuterol prn (8) Hyperlipidemia: Plan: on pravastatin 20mg daily cont such (9) Hypothyroidism: Plan: cont synthroid no TSH in our system since 2018 check TSH in am (10) History of GI bleed: Plan: 05/2014 hospitalized at [facility] 2 units PRBCs needed significant esophagitis seen on EGD during that admission but no active bleeding during EGD diverticulosis seen on colonoscopy - but no active bleeding uncertain if he ever had a capsule endoscopy because of this GI bleed event he has NEVER been on anticoagulation for his PAF Xarelto was started at time of this admission for fear he had had a TIA since neurology does not think he had TIA --- stop the Xarelto? cont it at discharge? again - need to discuss pros/cons of sending him home on Xarelto at discharge Plan: keep overnight schedule the meclizine TID hopefully vertigo is better tomorrow if so can likely d/c home then Admission and Anticipated Discharge Date Admission Date: February 09, 2021 Subjective patient still with very mild vertigo with head movements/moving too quickly in the bed or standing too quickly however, much better than at presentation no further headache no further numbness spells no further syncope or near-syncope patient reports that he tends to have low blood pressure or normal pressure he mentions an episode when he was medicated for high blood pressure readings and nearly fainted because of such he also specifically recalls being given a prescription for meclizine in the past for peripheral vertigo finally, he did have a recent URI with cold symptoms and mild cough; this occurred 1-2 weeks ago never had loss of taste/smell or fever tele overnight wnl Review of Systems Review of Systems: gen - no fevers or chills; robust appetite cv - no chest pain pulm - no dyspnea GI - no N/V/pain Physical Exam Physical Exam: gen - NAD, very pleasant eyes - horizontal nystagmus, fast component pointing towards right; PERRL neck - no JVD heart - RRR, s1 s2, no murmur lungs - CTA b/l abd - soft, NT, ND, BS+ ext - no edema, pulses 2+ b/l neuro - finger/nose/finger maneuver without ataxia; strength 5/5 x 4 exts Results & Data Results & Data ([facility]) Vital Signs (Past 12 Hours) Vital Signs Temp Pulse Pulse Resp BP Pulse Ox 02/10/21 19:09 37.0 C 71 19 149/102 H 95 02/10/21 18:31 131/84 02/10/21 15:00 67 02/10/21 12:09 36.8 C 77 18 173/111 H 97 Laboratory Results labs from admission noted mildly low Na level - chronic MRI brain neg acute CVA PG Care Time/CCT Total # of Minutes Spent Total Time Spent with Patient: Total time spent is greater than 50% in coordination of care (as documented) at patient's floor/unit and/or counseling patient: Coding Level of Care Code 16315 Subseq Hosp Care Lvl 3 Diagnoses Vertigo R42 Near syncope R55 Paroxysmal atrial fibrillation I48.0 CAD (coronary artery disease) I25.10 Hypertension I10 BPH (benign prostatic hyperplasia) N40.0 Asthma J45.909 Hyperlipidemia E78.5 Hypothyroidism E03.9 History of GI bleed Z87.19
[2021-02-10] MEDS ORDERED: MELATONIN 3 MG TAB PO SCH (21:00)
[2021-02-10] MEDS: risperiDONE 2 MG TABLET PO SCH (21:02)
[2021-02-10] MEDS: MELATONIN 3 MG TAB PO SCH (21:02)
[2021-02-10] MEDS: PRAVASTATIN SOD 20 MG TAB PO SCH (21:03)
[2021-02-10] MEDS: ASPIRIN 81 MG ECTAB PO SCH (21:03)
[2021-02-11] MEDS: LEVOTHYROXINE SODIUM 175 MCG TABLET PO SCH (06:25)
[2021-02-11] MEDS: FLUTICASONE FUROATE 200MCG 14 PUFFS/INHALER INH SCH (07:37)
[2021-02-11] MEDS: VENLAFAXINE HCL XR 75 MG CAPXR PO SCH (07:38)
[2021-02-11] MEDS: SOTALOL HCL 80 MG TAB PO SCH (07:38)
[2021-02-11] MEDS: MECLIZINE 12.5 MG TAB PO SCH (07:38)
[2021-02-11] MEDS: PANTOprazole 40 MG TAB PO SCH (07:38)
[2021-02-11 08:31] LABS: BUN Creatinine Ratio 15.2 (10-20); Calcium 9.2 mg/dl (8.5-10.1); Creatinine Clr Calc Pharmacy 69.5 ml/min; Est GFR (African American) 74.7 ml/min; Est GFR (Non-African American) 64.4 ml/min; Potassium 4.5 mmol/L (3.5-5.1)
[2021-02-11 08:41] LABS: Thyroid Stimulating Hormone 1.67 uIu/ml (0.300-4.500)
--- NOTE | 2021-02-11 11:25 | Discharge Summary ---
Date of Service February 11, 2021 Admission HPI Per Admitting Provider Mr. 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 Patient was in his usual state of health this morning, and while he was shaving, moving his head around he developed the onset of vertigo/dizziness and ? near syncopal episode in which he fell forward toward the mirror, but quickly caught himself on the bathroom sink -- he did not have loss of consciousness -- he felt like he had some black spot in both of his eyes that were coming and going. Following that, he lied down on the couch and called his daughter who lives next door and she came over to check on him. At that point, the patient described some left-sided numbness and tingling, particularly in his left arm and questionably had a mild left facial droop. His daughter drove him to his wax specialist's office (Dr. Stephen). Patient briefly had a generalized headache about an hour after the onset of symptoms as well -- which has also resolved. EMS was subsequently activated and he was brought to the ER via ambulance. By the time he arrived to the ER the left arm numbness/tingling and visual distu rbance had resolved but his vertigo has persisted -- especially with head movement. Patient does admit to chronic stable dyspnea on exertion, uncertain if it is worsened over the past year. Generally responds well with his inhalers. Patient denies having any recent atrial fibrillation to his knowledge and he is typically symptomatic with atrial fibrillation. Patient has not had any exertional chest pain, heaviness, tightness, pressure, or discomfort. He denies any exertional neck, jaw, back, arm pain. No orthopnea or PND. No recent palpitations. He does have a history of prior syncopal episodes which have not fully been explained. His most recent ECHOCARDIOGRAM 07/05/2018 showed: -- Normal LV size, wall motion, and systolic function. -- LVEF 50% to 55%. -- Mild concentric LVH. -- Grade I LV diastolic dysfunction. -- Moderately dilated LA. -- Mild AI. -- Mild MR. Principal Diagnosis Vertigo, suspected viral infection, vestibular neuronitis Discharge Exam General: well developed, well nourished, no acute distress, comfortable Neck: supple, trachea midline, normal thyroid Lungs: clear to auscultation bilaterally, normal respiratory effort, no accessory muscle use, no distress Heart: regular S1 and S2, no murmur, peripheral pulses normal, capillary refill normal, no edema Abdomen: soft, NT, ND, + BS, no hepatomegaly, normal to percussion Extremities: normal in appearance, no cyanosis, no petechiae, strength is 5/5 bilaterally Neuro: awake, cooperative, moves all extremities, no focal motor deficits, CN II-XII intact, sensation in extremities intact, normal speech Skin: warm, dry, no rash, normal turgor Psych: Awake, alert oriented x 3, euthymic affect Discharge Data Allergies Allergy/AdvReac Type Severity Reaction Status Date / Time Quinolones AdvReac Achilles Verified 06/24/19 11:23 Tendon Rupture Consultations 02/09/21 13:18 ED Decision to Admit Stat 02/09/21 16:45 Consult Neurology Routine Ordered Studies 02/09/21 10:41 CT head/brain wo con Stat 02/09/21 11:00 CT angio head w con Stat CT angio neck with con Stat 02/09/21 11:44 MR brain wo con Stat Hospital Course (1) Vertigo: felt to be peripheral in origin MRI brain negative for CVA or central cause of vertigo 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 (he had a URI in the last 1-2 weeks) he did not improve with Moe maneuver making BPPV unlikely good response to meclizine will schedule the meclizine 12.5mg TID, after a few days he can take just as needed agree with neurology that ENT referral post-discharge is recommended he denies any tinnitus/hearing changes to suggest Meniere's follow up with PCP in a week, defer ENT referral to their preference (2) Near syncope: in the setting of #1, headache, etc see neurology consult and their thoughts regarding the etiology of this episode (?arterial vasospasm leading to headache and near-syncope) no recurrent episodes of near-syncope tele stable (3) Paroxysmal atrial fibrillation: on Sotalol for rhythm control but previously NOT anticoagulated due to prior history of GI bleeding admitting physician initiated Xarelto 20mg daily due to concern he had had a TIA at time of this admission however, neurology feels this was NOT a TIA CHADs-VAsc score is very high and ideally he should be on anticoagulation he agrees to Xarelto 20mg daily, prescription provided (4) CAD (coronary artery disease): Mild to moderate non-obstructive CAD by history Continue beta blocke (sotalol), aspirin, statin (5) Hypertension: elevated readings at presentation, but they are trending towards normal now. he reports h/o LOW BPs in the past and prior attempts to medicate high readings led to near-syncope. THUS - will NOT start any new BP agents while here. (6) BPH (benign prostatic hyperplasia): no symptoms not on meds at baseline (7) Asthma: asymptomatic at this time albuterol prn (8) Hyperlipidemia: on pravastatin 20mg daily cont such (9) Hypothyroidism: cont synthroid no TSH in our system since 2018 check TSH in am (10) History of GI bleed: 05/2014 hospitalized at [facility] 2 units PRBCs needed significant esophagitis seen on EGD during that admission but no active bleeding during EGD diverticulosis seen on colonoscopy - but no active bleeding uncertain if he ever had a capsule endoscopy because of this GI bleed event he has NEVER been on anticoagulation for his PAF will start on Xarelto, if he has issues with bleeding then stop discharge to home Total Time Total Time Spent Total Time Spent (In Minutes): 31 minutes Total Time Includes: Examination of the Patient, Discharge Planning, Medication Reconciliation and Communication With Other Providers Discharge Plan Discharge Items Patient Disposition: Home - Self-Care Reason For Visit: STROKE LIKE SYMPTOMS Discharge Diagnosis: Vertigo Paroxysmal atrial fibrillation Condition on Discharge: Good Goals: use Meclizine for vertigo take Xarelto for stroke prevention Activity: Resume your previous activity Driving/Machine Use: no driving until vertigo resolved Weightbearing: Full weightbearing Non-emergency contact: Primary Care Provider Call non-emergency contact if: you have any medication questions and your symptoms worsen Follow-up/Referrals: Scottie Lechuga MD [Physician] - (3-4 weeks, vertigo) Choco Lopez MD [Primary Care Provider] - (one week) Diet: Heart Healthy Addtl Attending Provider Instructions: Medications: - MECLIZINE: take 12.5mg every 8 hours as needed for dizziness for the next 3-4 days you can take every 8 hours scheduled, not just as needed, and then after 3-4 days try just using as needed - XARELTO: 20mg daily, this is blood thinner for stroke prevention with your atrial fibrillation Vertigo: likely viral infection in the inner ear causing labrynthitis, will be self resolving no evidence of stroke on imaging symptoms improving with meclizine, continue this as described above follow up with PCP in a week, neurology in several weeks consider referral to ENT outpatient, defer to PCP paroxysmal atrial fibrillation: in sinus rhythm on Sotalol recommend adding Xarelto to prevent strokes Pending Studies at Discharge: No Stand-Alone Forms: [facility], Smoking Cessation Medications and DC Order Prescriptions: New Xarelto 20 mg Tablet 20 mg PO DAILY@1800 30 Days Qty: 30 RF: 3 meclizine 12.5 mg Tablet 12.5 mg PO Q8H PRN (Reason: dizziness) 10 Days Qty: 30 RF: 1 Continued levothyroxine 175 mcg Tablet 175 mcg PO QAM RF: 0 venlafaxine [Effexor XR] 75 mg Capsule,Extended Release 24hr 75 mg PO QAM RF: 0 risperidone 4 mg Tablet 4 mg PO HS RF: 0 sotalol 80 mg Tablet 80 mg PO BID RF: 0 aspirin 81 mg Tablet,Delayed Release (Dr/Ec) 81 mg PO HS RF: 0 pantoprazole [Protonix] 40 mg Tablet,Delayed Release (Dr/Ec) 40 mg PO QAM RF: 0 pravastatin 20 mg Tablet 20 mg PO HS RF: 0 melatonin 5 mg Capsule 5 mg PO HS RF: 0 Flovent HFA 110 mcg/actuation Hfa Aerosol Inhaler 2 puff INHALATION BID RF: 0 albuterol sulfate 90 mcg/actuation Hfa Aerosol Inhaler 1 puff INHALATION Q6H PRN (Reason: SOB) RF: 0 Discharge Orders: Discharge Order (Routine); Ordered 02/11/21 Ordered By: Kayden Pierre Admission Data Admit Date/Time: 02/09/21 14:25 Attending Provider: Kayden Pierre Admit Provider: Ramiro Link Primary Care Provider: Choco Lopez Other Providers: Ignacio Bowman ; Jaya Haile Coding Level of Care Code D/C DAY MANAGEMENT >30 MINS Diagnoses Vertigo R42 Near syncope R55 Paroxysmal atrial fibrillation I48.0 CAD (coronary artery disease) I25.10 Hypertension I10 BPH (benign prostatic hyperplasia) N40.0 Asthma J45.909 Hyperlipidemia E78.5 Hypothyroidism E03.9 History of GI bleed Z87.19
== END 2021-02-11 14:50 | disposition home or self-care (01) ==
LOC: ED 10:40 → INTOOBSV 14:25 → SUATTDRO 14:25 → EDINP 14:25 → 2S 19:14

== ENCOUNTER 2024-02-08 11:59 | Observation (INO) ==
--- NOTE | 2024-02-08 12:17 | Emergency Department Note ---
Impression & Plan Chest pain, Shortness of breath ED Provider Note NAME: DOMINIQUE KELLY AGE: 78 SEX: M : 1945 ARRIVES VIA: Ambulance INFORMANT: Patient ED PROVIDER(S): Sebastián De Paz DO CHIEF COMPLAINT: Chest pain, shortness of breath bilateral arm pain HPI: Patient is an 78-year-old male with a past medical history of Parkinson's disease, cognitive dysfunction, CAD, paroxysmal A-fib, GI bleed, asthma who presents to the ER for midsternal chest pressure associated with bilateral arm pain and shortness of breath which lasted for about 2 hours. Symptoms have now completely abated. Per EMS when they got there his heart rate was elevated but it stopped shortly thereafter. He denies any belly pain, nausea, vomiting, or diarrhea. No dysuria, urgency, or frequency. He has no complaints at this time. ADDITIONAL HISTORY OBTAINED: Per HPI Chronic Medical/Social Conditions Affecting Care: Per HPI PAST MEDICAL HISTORY:See Below PAST SURGICAL HISTORY:See Below FAMILY HISTORY:See Below SOCIAL HISTORY:See Below HOME MEDICATIONS:See Below ALLERGIES:See Below VITALS:See Below PHYSICAL EXAMINATION: GENERAL: Sitting up in bed, alert, well appearing, well nourished, no distress, non-toxic EYE EXAM: normal conjunctiva. OROPHARYNX: no exudate, no erythema, lips, buccal mucosa, and tongue normal and mucous membranes are moist NECK: supple, no nuchal rigidity, no adenopathy, non-tender LUNGS: Clear to auscultation. Normal chest wall mechanics HEART: no murmurs, S1 normal and S2 normal ABDOMEN: abdomen soft, non-tender, normo-active bowel sounds, no masses, no rebound or guarding. UPPER EXTREMITIES: upper extremities are grossly normal. LOWER EXTREMITIES: No pitting edema. Calves are equal bilaterally NEURO EXAM: Normal sensorium, cranial nerves II-XII grossly intact, normal speech, no gross weakness of arms, no gross weakness of legs. MEDICAL DECISION MAKING: Patient is an 78-year-old male who presents to the ER with above-stated complaint. IV was established and blood work was obtained. Labs show no significant leukocytosis. Mild anemia at 9.8 which consistent with his hemoglobin of 10 in July. BMP along with LFTs bilirubin is unremarkable. Initial troponin was negative. Viral panel was negative. Based on his age and symptoms this did sound cardiac. We were able to obtain the EKG from EMS and appears to be consistent with SVT. Did favor observation overnight was warranted. Discussed case with the hospitalist for further evaluation management treatment. Patient was given fluids and aspirin. Consults/Care Managements Discussions: Per MDM Triage Nursing notes reviewed. Limited review of prior medical records performed Vital Signs: reviewed and remarkable for no significant abnormalities Differential diagnosis: Cardiac ischemia, aortic dissection, pulmonary embolism, pneumothorax, pneumonia, pericarditis, myocarditis, esophageal rupture, GERD, cholecystitis, pancreatitis, musculoskeletal, as well as other pathologies. ER treatment provided: See below Diagnostics interpreted by me include EKG and cardiac monitoring as listed below: -Cardiac Monitoring: An order was placed for continuous cardiac monitoring. The monitor shows a rate of 101 with sinus rhythm. -ECG: Sinus tachycardia rate of 103 Normal axis No PVCs QTc 429 -Laboratory studies:Interpreted by me as stated above in MDM and shown below. Imaging studies: Xrays: As interpreted by me: Portable AP upright 1 view of the chest shows no focal infiltrate CTs show: None Procedures: None Critical Care: None Past Med/Surg History Problem List (Updated 02/08/24 @ 17:41 by Sebastián De Paz DO) Shortness of breath (Acute) Chest pain (Acute) Atrial fibrillation with rapid ventricular response Vitamin D deficiency Vitamin B12 deficiency Chronic cerebral ischemia Cognitive dysfunction 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 Dizziness Sensorineural hearing loss (SNHL) of both ears Dizziness History of GI bleed Hyperlipidemia Hypothyroidism Hypertension Positional vertigo CAD (coronary artery disease) Paroxysmal atrial fibrillation Vertigo BPH (benign prostatic hyperplasia) Atrial fibrillation (Chronic) Hypotension (Chronic) H/O hyperthyroidism (Chronic) ACS (acute coronary syndrome) (Acute) GI bleed (Acute) GIB (gastrointestinal bleeding) (Acute) Hypotension (Acute) Profound anemia (Acute) Encounter for pre-operative examination Spinal stenosis, lumbar region with neurogenic claudication Depression Asthma DVT prophylaxis Achilles rupture, right Medical History Near syncope Syncope and collapse Stroke-like symptoms Acute prostatitis Fusion of spine CORREA (dyspnea on exertion) CAD (coronary artery disease) Osteoarthritis Degenerative disc disease Chronic back pain GERD (gastroesophageal reflux disease) Anemia GI bleed Atrial fibrillation Sleep apnea Surgical History S/P cataract surgery History of lumbar fusion History of arthroscopy History of total knee replacement Hx of transurethral resection of prostate History of esophagogastroduodenoscopy (EGD) History of colonoscopy History of cardiac cath Family History (Updated 02/10/21 @ 09:31 by Scottie Lechuga MD) Grandmother (Paternal) FHx: leukemia Grandfather (Paternal) No problems noted. Grandfather Gastric cancer Father , age 80 of cardiac condition Cardiac disorder Hypertension Nephrolithiasis Mother , age 66 of a cerebral event Cardiac disorder Cerebral aneurysm Brother Hypertension Grandmother Gastric cancer Social History (Updated 07/18/23 @ 09:08 by Scottie Lechuga MD) Smoking Status: Former smoker Age Started Using Tobacco: 16; Age Quit Using Tobacco: 34; packs per day: 3; Second Hand Exposure: No; Do You Dip or Chew Tobacco: No; Hx Alcohol Use: No Hx Substance Use: No Preferred Language: Serbian Communication Ability: Effective Senior Stock Plan Administrator Required: No Beliefs That Will Affect Care: None Current Living Situation: Alone current occupational status: retired 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 Feels Safe at Home: Yes Assistive Devices: Walker Allergies Allergies Allergy/AdvReac Type Severity Reaction Status Date / Time levofloxacin AdvReac ruptured Verified 09/06/23 15:14 achilles tendon Quinolones AdvReac Achilles Verified 09/06/23 15:14 Tendon Rupture levaquin AdvReac Unknown Uncoded 09/06/23 15:14 Home Meds Home Medications Medication Instructions Recorded Confirmed aspirin 81 mg tablet,delayed 81 mg PO HS 08/20/18 02/08/24 release levothyroxine 175 mcg tablet 175 mcg PO QAM 08/20/18 02/08/24 pravastatin 20 mg tablet 20 mg PO HS 08/20/18 02/08/24 sertraline 50 mg tablet 50 mg PO DAILY 03/03/22 02/08/24 famotidine 20 mg tablet 20 mg PO BID 07/16/23 02/08/24 melatonin 5 mg capsule 10 mg PO HS 07/16/23 02/08/24 metoprolol succinate 25 mg 12.5 mg PO DAILY 09/06/23 02/08/24 tablet,extended release 24 hr cholecalciferol (vitamin D3) 1,250 50,000 unit PO WK 02/08/24 02/08/24 mcg (50,000 unit) tablet fluticasone propionate 220 2 puff inhalation BID 02/08/24 02/08/24 mcg/actuation HFA aerosol inhaler risperidone 3 mg tablet 3 mg PO HS 02/08/24 02/08/24 rivaroxaban 20 mg tablet (Xarelto) 20 mg PO QPM 02/08/24 02/08/24 Previous Rx's Medication Instructions Recorded cyanocobalamin (vitamin B-12) 1,000 mcg IM .COMPLEX #180 mL 07/18/23 1,000 mcg/mL injection solution alfuzosin 10 mg tablet,extended 10 mg PO DAILY #90 tabs 08/01/23 release 24 hr (Uroxatral) Results & Data (ED) Vital Signs Vital Signs - 24 hr 02/08/24 11:53 02/08/24 11:53 02/08/24 12:03 Temperature 36.4 C L Temperature Source Oral Pulse Rate 103 H Pulse Rate [Apical] Pulse Rate from SpO2 Sensor Respiratory Rate 18 Respiratory Effort / Characteristics Non-Labored Spontaneous Respiratory Depth Normal Respiratory Pattern Regular Blood Pressure 93/78 L 93/78 L Blood Pressure [Left Arm] Blood Pressure Mean 83 86 Blood Pressure Mean [Left Arm] Pulse Oximetry 96 96 Oxygen Delivery Method Room Air Room Air Sepsis Recent Fever Within 48 Hours No Sepsis New/Unexplained Change in Mental Status N/A Sepsis Action Taken by Nursing No Action Required 02/08/24 12:09 02/08/24 12:12 02/08/24 12:27 Temperature Temperature Source Pulse Rate 96 H 92 H 90 Pulse Rate [Apical] Pulse Rate from SpO2 Sensor 93 H 94 H Respiratory Rate 13 14 Respiratory Effort / Characteristics Respiratory Depth Respiratory Pattern Blood Pressure Blood Pressure [Left Arm] Blood Pressure Mean Blood Pressure Mean [Left Arm] Pulse Oximetry 99 98 87 L Oxygen Delivery Method Sepsis Recent Fever Within 48 Hours Sepsis New/Unexplained Change in Mental Status Sepsis Action Taken by Nursing 02/08/24 12:29 02/08/24 12:36 02/08/24 12:36 Temperature Temperature Source Pulse Rate 107 H Pulse Rate [Apical] Pulse Rate from SpO2 Sensor Respiratory Rate Respiratory Effort / Characteristics Non-Labored Spontaneous Respiratory Depth Normal Respiratory Pattern Blood Pressure Blood Pressure [Left Arm] Blood Pressure Mean Blood Pressure Mean [Left Arm] Pulse Oximetry Oxygen Delivery Method Room Air Sepsis Recent Fever Within 48 Hours Sepsis New/Unexplained Change in Mental Status Sepsis Action Taken by Nursing 02/08/24 12:39 02/08/24 12:45 02/08/24 12:51 Temperature Temperature Source Pulse Rate 86 88 86 Pulse Rate [Apical] Pulse Rate from SpO2 Sensor 84 85 79 Respiratory Rate 14 20 14 Respiratory Effort / Characteristics Respiratory Depth Respiratory Pattern Blood Pressure Blood Pressure [Left Arm] Blood Pressure Mean Blood Pressure Mean [Left Arm] Pulse Oximetry 97 100 98 Oxygen Delivery Method Sepsis Recent Fever Within 48 Hours Sepsis New/Unexplained Change in Mental Status Sepsis Action Taken by Nursing 02/08/24 16:00 02/08/24 16:30 02/08/24 17:00 Temperature Temperature Source Pulse Rate Pulse Rate [Apical] 88 105 H 84 Pulse Rate from SpO2 Sensor Respiratory Rate 22 18 14 Respiratory Effort / Characteristics Respiratory Depth Respiratory Pattern Blood Pressure Blood Pressure [Left Arm] 128/89 124/70 134/84 Blood Pressure Mean Blood Pressure Mean [Left Arm] 102 88 100 Pulse Oximetry 100 97 98 Oxygen Delivery Method Room Air Sepsis Recent Fever Within 48 Hours Sepsis New/Unexplained Change in Mental Status Sepsis Action Taken by Nursing Laboratory Data 02/08/24 15:11 02/08/24 12:08 Lab Results 02/08/24 02/08/24 02/08/24 Range/Units 12:08 15:06 15:11 WBC 10.74 (4.8-10.8) K/ul RBC 5.73 (4.70-6.10) M/uL Hgb 9.8 L 8.3 L (14.0-18.0) g/dl Hct 34.6 L 29.3 L (42.0-52.0) % MCV 60.4 L (80.0-100.0) fL MCH 17.1 L (25.0-34.0) pg MCHC 28.3 L (32.0-36.0) g/dL RDW Std Deviation 40.8 (36.4-46.3) fL RDW Coeff of Rj 21.0 H (11.5-14.5) % Plt Count 411 H (130-400) K/uL Immature Gran % (Auto) 1.1 % Neut % (Auto) 77.7 % Lymph % (Auto) 12.3 % [place] % (Auto) 7.1 % Eos % (Auto) 1.1 % Baso % (Auto) 0.7 % Neut # (Auto) 8.35 H (1.40-6.50) K/uL Lymph # (Auto) 1.32 (1.20-3.40) K/uL [place] # (Auto) 0.76 H (0.11-0.59) K/uL Eos # (Auto) 0.12 (0.00-0.50) K/uL Baso # (Auto) 0.07 (0.00-0.20) K/uL Immature Gran # (Auto) 0.12 (0.01-0.20) K/uL Polychromasia 2+ Hypochromasia Present Anisocytosis Present Microcytosis Present Tear Drop Cells 1+ Ovalocytes 1+ Sodium 133 L (136-145) mmol/L Potassium 4.3 (3.5-5.1) mmol/L Chloride 101 (98-107) mmol/L Carbon Dioxide 25 (21-32) mmol/L Anion Gap 7 (3-11) BUN 20 (6-23) mg/dl Creatinine 1.01 (0.6-1.4) mg/dl Est Cr Clr Drug Dosing 73.7 ml/min eGFR 75.18 BUN/Creatinine Ratio 19.8 (10-20) Glucose 114 H (70-99(Fasting)) mg/dl Calcium 9.0 (8.6-10.3) mg/dl Total Bilirubin 0.4 (0.2-1.0) mg/dl AST 15 (13-39) U/L ALT 9 (7-52) U/L Alkaline Phosphatase 61 (34-104) U/L Troponin I High Sens 12.2 28.3 H D (0-20) pg/ml Total Protein 7.8 (6.0-8.3) gm/dl Albumin 4.1 (3.4-5.0) gm/dl Globulin 3.7 (2.5-4.0) gm/dl Albumin/Globulin Ratio 1.1 (0.9-2) Lipase 22 (11-82) U/L Adenovirus (PCR) Not Detected (NotDetected) B. pertussis DNA (PCR) Not Detected (NotDetected) B.parapertussis DNA PCR Not Detected (NotDetected) C. pneumoniae DNA (PCR) Not Detected (NotDetected) Coronavirus OC43 (PCR) Not Detected (NotDetected) Coronavirus HKU1 (PCR) Not Detected (NotDetected) Coronavirus 229E (PCR) Not Detected (NotDetected) SARS-CoV-2 (PCR) Not Detected (NotDetected) Coronavirus NL63 (PCR) Not Detected (NotDetected) Human Metapneumovir PCR Not Detected (NotDetected) Influenza Type A (PCR) Not Detected (NotDetected) Influenza Type B (PCR) Not Detected (NotDetected) M. pneumoniae (PCR) Not Detected (NotDetected) Parainfluenza 1 (PCR) Not Detected (NotDetected) Parainfluenza 2 (PCR) Not Detected (NotDetected) Parainfluenza 3 (PCR) Not Detected (NotDetected) Parainfluenza 4 (PCR) Not Detected (NotDetected) RSV (PCR) Not Detected (NotDetected) Entero/Rhino (PCR) Not Detected (NotDetected) Blood Type Antibody Screen 02/08/24 Range/Units 16:39 WBC (4.8-10.8) K/ul RBC (4.70-6.10) M/uL Hgb (14.0-18.0) g/dl Hct (42.0-52.0) % MCV (80.0-100.0) fL MCH (25.0-34.0) pg MCHC (32.0-36.0) g/dL RDW Std Deviation (36.4-46.3) fL RDW Coeff of Rj (11.5-14.5) % Plt Count (130-400) K/uL Immature Gran % (Auto) % Neut % (Auto) % Lymph % (Auto) % [place] % (Auto) % Eos % (Auto) % Baso % (Auto) % Neut # (Auto) (1.40-6.50) K/uL Lymph # (Auto) (1.20-3.40) K/uL [place] # (Auto) (0.11-0.59) K/uL Eos # (Auto) (0.00-0.50) K/uL Baso # (Auto) (0.00-0.20) K/uL Immature Gran # (Auto) (0.01-0.20) K/uL Polychromasia Hypochromasia Anisocytosis Microcytosis Tear Drop Cells Ovalocytes Sodium (136-145) mmol/L Potassium (3.5-5.1) mmol/L Chloride (98-107) mmol/L Carbon Dioxide (21-32) mmol/L Anion Gap (3-11) BUN (6-23) mg/dl Creatinine (0.6-1.4) mg/dl Est Cr Clr Drug Dosing ml/min eGFR BUN/Creatinine Ratio (10-20) Glucose (70-99(Fasting)) mg/dl Calcium (8.6-10.3) mg/dl Total Bilirubin (0.2-1.0) mg/dl AST (13-39) U/L ALT (7-52) U/L Alkaline Phosphatase (34-104) U/L Troponin I High Sens (0-20) pg/ml Total Protein (6.0-8.3) gm/dl Albumin (3.4-5.0) gm/dl Globulin (2.5-4.0) gm/dl Albumin/Globulin Ratio (0.9-2) Lipase (11-82) U/L Adenovirus (PCR) (NotDetected) B. pertussis DNA (PCR) (NotDetected) B.parapertussis DNA PCR (NotDetected) C. pneumoniae DNA (PCR) (NotDetected) Coronavirus OC43 (PCR) (NotDetected) Coronavirus HKU1 (PCR) (NotDetected) Coronavirus 229E (PCR) (NotDetected) SARS-CoV-2 (PCR) (NotDetected) Coronavirus NL63 (PCR) (NotDetected) Human Metapneumovir PCR (NotDetected) Influenza Type A (PCR) (NotDetected) Influenza Type B (PCR) (NotDetected) M. pneumoniae (PCR) (NotDetected) Parainfluenza 1 (PCR) (NotDetected) Parainfluenza 2 (PCR) (NotDetected) Parainfluenza 3 (PCR) (NotDetected) Parainfluenza 4 (PCR) (NotDetected) RSV (PCR) (NotDetected) Entero/Rhino (PCR) (NotDetected) Blood Type A Positive Antibody Screen NEGATIVE Administered Medications Discontinued Medications Aspirin (Aspirin Chew 324 Mg) 324 mg PO NOW STA Stop: 02/08/24 12:12 Last Admin: 02/08/24 12:20 Dose: 324 mg Documented By: HANNAH Sodium Chloride (Nss) 500 mls @ 999 mls/hr IV .Q31M ONE Stop: 02/08/24 13:37 Last Infusion: 02/08/24 14:48 Dose: Infused Documented By: Admin: 02/08/24 13:22 Dose: 999 mls/hr Documented By: SARIKA Imaging Data Radiologist's Impression: Chest X-Ray 02/08/24 12:11 XR chest 1V portable CLINICAL HISTORY: Chest pain, nonspecific. COMPARISON STUDY: Chest radiograph August 23, 2018. FINDINGS: Elevation the right hemidiaphragm is similar to prior exam. There is no pneumothorax or pleural effusion. Cardiomediastinal silhouette is stable. Hazy left basilar opacity is unchanged. Mediastinal contours are stable. IMPRESSION: No acute cardiopulmonary findings. No significant change in appearance of the chest. ACT 112: Negative or not required by law. Electronically signed by: Surinder Pina M.D. 02/08/2024 12:42 PM Discharge Plan Visit Data Chief Complaint: Cardiac Assessment Stated Complaint: CARDIAC ASSESSMENT ED Provider: Sebastián De Paz Discharge Problem: Chest pain, Shortness of breath Forms Stand Alone Forms: [employer] Prescriptions Prescriptions: No Action cyanocobalamin (vitamin B-12) 1,000 mcg/mL solution 1,000 mcg IM .COMPLEX Qty: 180 2RF Rx Instructions: 1,000 mcg intramuscularly inject IM once weekly for weeks then inject onec monthly; alfuzosin [Uroxatral] 10 mg tablet extended release 24 hr 10 mg PO DAILY Qty: 90 3RF Rx Instructions: administer after the same meal each day sertraline 50 mg tablet 50 mg PO DAILY metoprolol succinate 25 mg tablet extended release 24 hr 12.5 mg PO DAILY famotidine 20 mg tablet 20 mg PO BID levothyroxine 175 mcg Tablet 175 mcg PO QAM aspirin 81 mg Tablet,Delayed Release (Dr/Ec) 81 mg PO HS pravastatin 20 mg Tablet 20 mg PO HS melatonin 5 mg capsule 10 mg PO HS risperidone 3 mg tablet 3 mg PO HS Xarelto 20 mg tablet 20 mg PO QPM cholecalciferol (vitamin D3) 1,250 mcg (50,000 unit) tablet 50,000 unit PO WK fluticasone propionate 220 mcg/actuation HFA aerosol inhaler 2 puff INHALATION BID Referrals Referrals: Harvinder Lopez MD [Primary Care Provider] - Discharge Problem: Chest pain Qualifiers: Chest pain type: unspecified Qualified Code(s): R07.9 - Chest pain, unspecified
[2024-02-08] MEDS: ASPIRIN CHEW 324 MG PO STA (12:20)
--- NOTE | 2024-02-08 12:44 | XRay Report ---
XR chest 1V portable CLINICAL HISTORY: Chest pain, nonspecific. COMPARISON STUDY: Chest radiograph August 23, 2018. FINDINGS: Elevation the right hemidiaphragm is similar to prior exam. There is no pneumothorax or ple ural effusion. Cardiomediastinal silhouette is stable. Hazy left basilar opacity is unchanged. Medias tinal contours are stable. IMPRESSION: No acute cardiopulmonary findings. No significant change in appearance of the chest. ACT 112: Negative or not required by law. Electronically signed by: Surinder Pina M.D. 02/08/2024 12:42 PM
[2024-02-08 12:50] LABS: Hematocrit (blood only) 34.6 % (42.0-52.0); Hemoglobin 9.8 g/dl (14.0-18.0); Mean Corpuscular Hemoglobin 17.1 pg (25.0-34.0); Mean Corpuscular Hgb Conc 28.3 g/dL (32.0-36.0); Mean Corpuscular Volume 60.4 fL (80.0-100.0); Platelet Count 411 K/uL (130-400); RDW Standard Deviation 40.8 fL (36.4-46.3); Red Blood Count 5.73 M/uL (4.70-6.10); White Blood Count 10.74 K/ul (4.8-10.8)
[2024-02-08 12:52] LABS: Albumin Globulin Ratio 1.1 (0.9-2); Albumin Level 4.1 gm/dl (3.4-5.0); BUN Creatinine Ratio 19.8 (10-20); Bilirubin,Total 0.4 mg/dl (0.2-1.0); Creatinine Clr Calc Pharmacy 73.7 ml/min; Globulin 3.7 gm/dl (2.5-4.0); Potassium 4.3 mmol/L (3.5-5.1); Total Protein 7.8 gm/dl (6.0-8.3)
[2024-02-08 12:59] LABS: Troponin I High Sensitivity 12.2 pg/ml (0-20)
[2024-02-08 13:06] LABS: Anisocytosis Present; Basophils # (auto) 0.07 K/uL (0.00-0.20); Basophils % (auto) 0.7 %; Eosinophils # (auto) 0.12 K/uL (0.00-0.50); Eosinophils % (auto) 1.1 %; Hypochromasia Present; Immature Granulocytes # (auto) 0.12 K/uL (0.01-0.20); Immature Granulocytes % (auto) 1.1 %; Lymphocytes # (auto) 1.32 K/uL (1.20-3.40); Lymphocytes % (auto) 12.3 %; Microcytosis Present; Monocytes # (auto) 0.76 K/uL (0.11-0.59); Monocytes % (auto) 7.1 %; Neutrophils # (auto) 8.35 K/uL (1.40-6.50); Neutrophils % (auto) 77.7 %; Ovalocytes 1+; Polychromasia 2+; Tear Drop Cells 1+
[2024-02-08] MEDS: SODIUM CHLORIDE 0.9% 500 ML IV ONE (13:22)
[2024-02-08] MEDS ORDERED: ONDANSETRON INJ 2 MG/ML 2 ML VIAL IV PRN (14:49)
[2024-02-08] MEDS ORDERED: ACETAMINOPHEN 325 MG TAB PO PRN (14:49)
--- NOTE | 2024-02-08 15:08 | History & Physical Report ---
Date of Service February 08, 2024 Assessment & Plan (1) Atrial fibrillation with rapid ventricular response: Plan: Assessment: 1. Episode of chest pressure with associated bilateral arm discomfort with shortness of breath. All symptoms now resolved. Serial troponins. Echocardiogram. Entertain cardiology consultation if gross abnormalities are identified. 2. SVT on EMS presentation probably A-fib with RVR. History of atrial fibrillation. On chronic Xarelto therapy. Continue. 3. Anemia. Per the patient and family at the patient's been recently diagnosed with iron deficiency anemia. He is set up with hematology to receive outpatient IV iron infusions has yet to receive his first 1. We will check stools for occult blood and repeat H&H as this could be contributing to his tachycardia of course and his breathlessness this been going on for approximately a month. 4. Shortness of breath ongoing for approximately a month. Could be heart related. In terms of his rate. Could be anemia related. Monitor carefully. The patient's 100% compliant with his Xarelto so pulmonary embolism would be very low on my suspicion list. We have ordered a respiratory viral panel for completeness given his symptomatology. 5. Hyperlipidemia. Check levels in the morning. Continue home therapy. 6. Hypertension continue same home medications. Monitor carefully. He had some relative hypotension on admission at 93/78 this is improved is in the room he was 142/64. 7. History of BPV. 8. Rule out GI bleed. Again the patient denies any black tarry stool or blood in the stool however his hemoglobin has been dropping. Could be all related to the iron deficiency anemia. If stools are positive for blood is Xarelto and aspirin should be discontinued and GI consultation entertained. 9. Obstructive sleep apnea. Patient CPAP machine is at home. We have ordered CPAP for here. The patient stated to use 4 L of oxygen however this has been clarified by the patient's daughter she is looked up his outpatient sleep study on their portal. He uses 2 L of oxygen into his CPAP and is an auto CPAP from 4 to 20 cm of water. Plan: As discussed above. Please refer to orders for further planning. History of Present Illness Chief Complaint: Chest pressure shortness of breath Primary Care Provider: Harvinder Lopez MD This is a pleasant 78-year-old male who had an episode today with mid substernal chest pressure with radiation to the upper extremities bilaterally. EMS was called. He was found to be in an SVT. Patient does have a history of paroxysmal atrial fibrillation chronically anticoagulated on Xarelto. He was transported by EMS to [facility] [address] from [place] per patient and family request. And route in the ambulance he can converted to a rate controlled rhythm and his symptomatology resolved. In the emergency department he had a troponin of 12.2 in the ER. With a reassuring EKG. Hemoglobin is noted to be 9.8. On further discussion with the patient and his family at the bedside including his daughter and granddaughter the patient has been diagnosed with anemia with iron deficiency and is scheduled to see hematology as an outpatient for IV iron infusions. The patient denies any black tarry stools or any ialyn blood in his stools. We will check a stool for occult blood given the fact he is on aspirin and Xarelto. We are going admit the patient for serial troponins. Check an echocardiogram. Will consider cardiology consultation pending troponins and echo. We also check a [employer] respiratory panel. Allergies Allergy/AdvReac Type Severity Reaction Status Date / Time levofloxacin AdvReac ruptured Verified 09/06/23 15:14 achilles tendon Quinolones AdvReac Achilles Verified 09/06/23 15:14 Tendon Rupture levaquin AdvReac Unknown Uncoded 09/06/23 15:14 Home Medications Medication Instructions Recorded Confirmed Type albuterol sulfate 90 mcg/actuation 1 puff inhalation Q6H PRN SOB 08/20/18 09/06/23 History aerosol inhaler aspirin 81 mg tablet,delayed 81 mg PO HS 08/20/18 09/06/23 History release fluticasone propionate 110 2 puff inhalation BID 08/20/18 09/06/23 History mcg/actuation HFA aerosol inhaler (Flovent HFA) levothyroxine 175 mcg tablet 175 mcg PO QAM 08/20/18 09/06/23 History pravastatin 20 mg tablet 20 mg PO HS 08/20/18 09/06/23 History risperidone 4 mg tablet 4 mg PO HS 08/20/18 09/06/23 History rivaroxaban 20 mg tablet (Xarelto) 20 mg PO DAILY@1800 30 days #30 02/11/21 09/06/23 Rx tabs sertraline 50 mg tablet 50 mg PO 03/03/22 09/06/23 History acetaminophen PO 07/16/23 09/06/23 History famotidine 20 mg tablet 20 mg PO BID 07/16/23 09/06/23 History melatonin 5 mg capsule 10 mg PO HS 07/16/23 09/06/23 History cyanocobalamin (vitamin B-12) 1,000 mcg IM .COMPLEX #180 mL 07/18/23 10/09/23 Rx 1,000 mcg/mL injection solution alfuzosin 10 mg tablet,extended 10 mg PO DAILY #90 tabs 08/01/23 09/06/23 Rx release 24 hr (Uroxatral) metoprolol succinate 25 mg 12.5 mg PO DAILY 09/06/23 09/06/23 History tablet,extended release 24 hr cholecalciferol (vitamin D3) 1,250 50,000 unit PO Q7D 90 days #12 tabs 10/15/23 Rx mcg (50,000 unit) tablet Past Med/Surg History Problem List (Updated 02/08/24 @ 15:13 by Forest Keller, PhD, DO) Atrial fibrillation with rapid ventricular response Vitamin D deficiency Vitamin B12 deficiency Chronic cerebral ischemia Cognitive dysfunction 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 Dizziness Sensorineural hearing loss (SNHL) of both ears Dizziness History of GI bleed Hyperlipidemia Hypothyroidism Hypertension Positional vertigo CAD (coronary artery disease) Paroxysmal atrial fibrillation Vertigo BPH (benign prostatic hyperplasia) Atrial fibrillation (Chronic) Hypotension (Chronic) H/O hyperthyroidism (Chronic) ACS (acute coronary syndrome) (Acute) GI bleed (Acute) GIB (gastrointestinal bleeding) (Acute) Hypotension (Acute) Profound anemia (Acute) Encounter for pre-operative examination Spinal stenosis, lumbar region with neurogenic claudication Depression Asthma DVT prophylaxis Achilles rupture, right Medical History Near syncope Syncope and collapse Stroke-like symptoms Acute prostatitis Fusion of spine CORREA (dyspnea on exertion) CAD (coronary artery disease) Osteoarthritis Degenerative disc disease Chronic back pain GERD (gastroesophageal reflux disease) Anemia GI bleed Atrial fibrillation Sleep apnea Surgical History S/P cataract surgery History of lumbar fusion History of arthroscopy History of total knee replacement Hx of transurethral resection of prostate History of esophagogastroduodenoscopy (EGD) History of colonoscopy History of cardiac cath Family History (Updated 02/10/21 @ 09:31 by Scottie Lechuga MD) Grandmother (Paternal) FHx: leukemia Grandfather (Paternal) No problems noted. Grandfather Gastric cancer Father , age 80 of cardiac condition Cardiac disorder Hypertension Nephrolithiasis Mother , age 66 of a cerebral event Cardiac disorder Cerebral aneurysm Brother Hypertension Grandmother Gastric cancer Social History (Updated 07/18/23 @ 09:08 by Scottie Lechuga MD) Smoking Status: Former smoker Age Started Using Tobacco: 16; Age Quit Using Tobacco: 34; packs per day: 3; Second Hand Exposure: No; Do You Dip or Chew Tobacco: No; Hx Alcohol Use: No Hx Substance Use: No Preferred Language: Tamazight Communication Ability: Effective Installation Service Representative Required: No Beliefs That Will Affect Care: None Current Living Situation: Alone current occupational status: retired 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 Physical Exam Physical Exam: In General: In general very pleasant 78-year-old gentleman accompanied by his daughter and granddaughter whom he granted permission to be in the room during my interview and examination. He is alert and oriented x 3. He is completely asymptomatic at this time. HEENT: Normocephalic atraumatic pupils are equal round and reactive to light bilaterally. No scleral icterus no conjunctival injection external auditory canals are patent septum is in the midline nose is without discharge oral mucosa is pink and moist without lesion. NECK: Supple no rigidity no lymphadenopathy no thyromegaly no carotid bruits no JVD no masses. HEART: Irregular rate and rhythm consistent with atrial fibrillation. Rate is controlled in the 80s to 90s at the time of my evaluation. There is no rub. There appears to be a faint systolic ejection murmur at the right sternal border. LUNGS: Clear to auscultation bilaterally and anteriorly with no evidence of adventitious sounds/wheezes rales or rhonchi. ABDOMEN: Soft nontender, no rebound, no peritoneal signs, positive bowel sounds, no appreciable organomegaly. EXTREMITIES: Intact, no peripheral cyanosis, clubbing or edema. Strength is 5 out of 5 in extremities x4. NEUROLOGICAL: Cranial nerves II through XII are grossly intact with no focal deficit elicited upon examination. No tremor. Results & Data Results & Data Vital Signs (Past 12 Hours) Vital Signs Temp Pulse Resp BP Pulse Ox O2 Del Method 02/08/24 12:51 86 14 98 02/08/24 12:45 88 20 100 02/08/24 12:39 86 14 97 02/08/24 12:36 Room Air 02/08/24 12:29 107 H 02/08/24 12:27 90 87 L 02/08/24 12:12 92 H 14 98 02/08/24 12:09 96 H 13 99 02/08/24 12:03 93/78 L 02/08/24 11:53 96 Room Air 02/08/24 11:53 36.4 C L 103 H 18 93/78 L 96 Room Air Code Status & VTE Plan Code Status Full code. I personally discussed with patient today at the bedside VTE Prophylaxis Plan VTE Prophylaxis will be ordered: Yes PG Care Time/CCT Total # of Minutes Spent Total Time Spent with Patient: Total time spent is greater than 50% in coordination of care (as documented) at patient's floor/unit and/or counseling patient: Coding Level of Care Code 32473 INT INP/OBS CARE 3/75MIN Diagnoses Atrial fibrillation with rapid ventricular response I48.91
--- NOTE | 2024-02-08 15:24 | Electrocardiogram Report ---
Test Reason : Blood Pressure : */* mmHG Vent. Rate : 103 BPM Atrial Rate : 103 BPM P-R Int : 156 ms QRS Dur : 82 ms QT Int : 328 ms P-R-T Axes : 27 25 78 degrees QTcB Int : 429 ms Sinus tachycardia Nonspecific ST and T wave abnormality Abnormal ECG When compared with ECG of 09-Feb-2021 10:52, Vent. rate has increased by 40 bpm T wave inversion no longer evident in Anterior leads Confirmed by Reynaldo Norman ([id number]) on 02/08/2024 3:23:42 PM Referred By: Confirmed By: Reynaldo Norman
[2024-02-08 15:41] LABS: Hematocrit (blood only) 29.3 % (42.0-52.0); Hemoglobin 8.3 g/dl (14.0-18.0)
--- NOTE | 2024-02-08 16:16 | XCELERA ---
[id number]
[2024-02-08 16:23] LABS: Adenovirus PCR Not Detected (NotDetected); Bordetella parapertussis PCR Not Detected (NotDetected); Bordetella pertussis PCR Not Detected (NotDetected); Chlamydia pneumoniae PCR Not Detected (NotDetected); Coronavirus 229E PCR Not Detected (NotDetected); Coronavirus CoV-2 (COVID19)PCR Not Detected (NotDetected); Coronavirus HKU1 PCR Not Detected (NotDetected); Coronavirus NL63 PCR Not Detected (NotDetected); Coronavirus OC43PCR Not Detected (NotDetected); Human Metapneumovirus PCR Not Detected (NotDetected); Influenza A PCR Not Detected (NotDetected); Influenza B PCR Not Detected (NotDetected); Mycoplasma pneumoniae PCR Not Detected (NotDetected); Parainfluenza Virus 1 PCR Not Detected (NotDetected); Parainfluenza Virus 2 PCR Not Detected (NotDetected); Parainfluenza Virus 3 PCR Not Detected (NotDetected); Parainfluenza Virus 4 PCR Not Detected (NotDetected); Respiratory Syncytial VirusPCR Not Detected (NotDetected); Rhinovirus/Enterovirus PCR Not Detected (NotDetected)
--- OUTSIDE RECORDS SUMMARY | 2024-02-08 17:53 | External Medical Summary | Continuity of Care Document ---
Author Name Unknown Organization [facility] [id number] [place] [phone] Care Team Providers Care Auto Adjudication Specialist Name Role Phone John Yonimairamarysol Primary Care Physician [phone] Encounter [facility] [id number] Date(s): 02/04/24 - 02/04/[address] [facility] [address] [place] [address] [address] [phone] Encounter Diagnosis Mild cognitive impairment(Discharge Diagnosis) - 02/04/24 Paroxysmal atrial fibrillation(Discharge Diagnosis) - 02/04/24 Body mass index [BMI] 31.0-31.9, adult(Discharge Diagnosis) - 02/04/24 Anemia(Discharge Diagnosis) - 02/04/24 Anemia, unspecified(Final) - Discharge Disposition: Home or Self Care Attending Physician: PARRIS Philippe Kimberly A Allergies, Adverse Reactions, Alerts Substance Criticality Severity Reaction Reaction Severity Status levoFLOXacin Ruptured achiles tendon Active Assessment and Plan Extracted from: Title:Office Visit Note\\ Author:PARRIS Philippe Ki mberly A Date:02/04/24 1.Mild cognitive impairmen t STATUS:Chronic condition exacerbated/progressive/side effects of treatment -Was recentlyuptitratedto [id number] -remains on Sertraline 50mg daily as well. -Moodseems to have improved now that the Risperidone has increased back to 3 mg- -Daughter does note that he was having more paranoia with the lower doses. -He has been on Risperidone for years following remote history of hospitalization for severe depression -Tremors havenotworsenedwith theincreaseddosing DATA:Labs reviewed. GOAL:Maintain stability. PLAN:Cont current monitoring. Continue current Risperidone dose of 3mg daily Will consider dose adjustments depending on symptom response 2.Paroxysmal atrial fibrillation STATUS:Chronic condition, at goal- -Continuesto bemanaged withcardiology -Remains on Xareltoand Metoprolol for maintenance treatment -Did have recentapptbutcardiology does notfeelthat hisdx ormedsare thecausativeagent for hischroniclightheadedness. -Hewasencouraged towearcompressionstockings toaidin symptomrelief DATA:Labs reviewed. GOAL:Maintain stability. PLAN:Cont current monitoring. Continue current Xarelto and Metoprolol Given concurrent anemia may need to hold Xarelto Additional care to remain under discretion of cardiology. 3.Anemia STATUS:New problem, undifferentiateddx withuncertainprognosis- -Hgb/Hcthas beentrendingdownover the pastfewmonths -Hgb/Hct of 10.0/35.7on most recent [id number] -Does have associatedsmudgecellsas wellas moderateovalocytes. -Daughternotes that hehasbeenmoreSOB inadditiontohischroniclightheadedness. -Heis onXareltobut denies anyblack or tarry stools, BRBPR,hemoptysis, abnormal bruisingor bleeding DATA:Labs reviewed. GOAL:Maintain stability. PLAN:Cont current monitoring. Repeat labs including pathologist read on manual smear as well anemia workup Referral to hematology ([facility])for additional management Referral to Dr. Abbott for repeat colonoscopy/EGD Time spent on pre-visit plannin min Face to face time spent w/ patient: 23 min Time spent documenting pertinent clinical information into the EMR: 8min Total time: 35 min Immunizations Given and Recorded Vaccine Date Status Refusal Reason SARS-CoV-2 mRNA (qdvfjxzvplt-chfq-cdv) 05/30/21 Re corded SARS-CoV-2 (COVID-19) mRNA BNT-162b2 vax 1 11/02/20 Recorded SARS-CoV-2 (COVID-19) mRNA BNT-162b2 vax 2 03/17/20 Recorded SARS-CoV-2 (COVID-19) mRNA BNT-162b2 vax 3 02/25/20 Recorded influenza virus vaccine, inactivated 4 10/27/20 Re corded influenza virus vaccine, inactivated 11/05/17 Dillon rded influenza virus vaccine, inactivated 10/06/16 Dillon rded pneumococcal 23-valent vaccine 03/01/17 Given pneumococcal 13-valent vaccine 5 01/23/14 Recorded pneumococcal 13-valent vaccine 01/19/14 Recorded tetanus/diphtheria/pertuss, acel (Tdap) 05/06/12 R ecorded zoster vaccine live 02/06/12 Recorded 1Result Comment: 2020-11-15: Historical information-source unspecified 2Result Comment: 2020-05-17: Historical information-source unspecified 3Result Comment: 2020-05-17: Historical information-source unspecified 4Result Comment: Boni kulkarni, per state database 5Result Comment: 2020-05-17: Historical information-source unspecified Medications albuterol CFC free 90 mcg/inh MDI Start: 09/28/17 10:24:00 AM EDT, 2 puff, inhaled, qid, Disp# 3 each, Refills: 3, as directed 15 minutes before exercise, PRN: Shortness of Breath, Pharmacy: [id number] [address] Start Date: 09/28/17 Status: Ordered alfuzosin 10 mg oral tablet, extended release Start: 03/09/22 9:45:00 AM EST, 1 tab, PO, Daily Start Date: 03/09/22 Status: Ordered aspirin Start: 02/20/14 10:52:00 AM EST, 81 mg =, PO, Daily Start Date: 02/20/14 Status: Ordered famotidine 20 mg oral tablet Start: 01/18/24 3:01:00 PM EST, 1 tab, PO, bid, Disp# 180 tab, Refills: 4, Pharmacy: [id number] Start Date: 01/18/24 Status: Ordered fluticasone CFC free 220 mcg/inh MDI Start: 06/08/23 9:56:00 AM EDT, 2 puff, inhaled, bid, Disp# 36 g, Refills: 4, supposed to be 220 BID for chronic use, Pharmacy: [id number] Start Date: 06/08/23 Stop Date: 08/31/24 Status: Ordered inhaler spacer Start: 10/30/14 12:08:07 PM EDT, See Instructions, Disp# 1 each, Refills: 0, to be used bid with flovent inhaler, Pharmacy: [id number] Start Date: 10/30/14 Status: Ordered levothyroxine 175 mcg (0.175 mg) oral tablet Start: 06/05/23 12:06:00 PM EDT, 1 tab, PO, Daily, Disp# 90 tab, Refills: 4, [facility]acy: [facility] #[id number] Start Date: 06/05/23 Status: Ordered melatonin 10 mg oral capsule Start: 11/18/15 2:47:00 PM EDT, 1/2 cap, PO, qhs Start Date: 11/18/15 Status: Ordered Metoprolol Succinate ER 25 mg oral tablet, extended release Start: 01/28/24 3:58:00 PM EST, 0.5 tab, PO, Daily, Disp# 45 tab, Refills: 3, called to pharmacy Start Date: 01/28/24 Status: Ordered pravastatin 20 mg oral tablet Start: 06/05/23 10:30:00 AM EDT, 1 tab, PO, qhs, Disp# 90 tab, Refills: 3, [facility]acy: [facility] #[id number] Start Date: 06/05/23 Status: Ordered risperiDONE 3 mg oral tablet Start: 12/28/23 12:49:00 PM EST, 1 tab, PO, Daily, Disp# 90 tab, Refills: 4, Pharmacy: [facility] #[id number] Start Date: 12/28/23 Status: Ordered sertraline 50 mg oral tablet Start: 07/05/23 3:54:00 PM EDT, 1 tab, PO, Daily, Disp# 90 tab, Refills: 4, Pharmacy: [facility] #[id number] Start Date: 07/05/23 Status: Ordered Tylenol Start: 10/22/19 12:43:00 PM EDT Start Date: 10/22/19 Status: Ordered Xarelto 20 mg oral tablet Start: 04/23/23 9:29:00 AM EDT, 1 tab, PO, qPM, Disp# 90 tab, Refills: 3, Pharmacy: [id number] Start Date: 04/23/23 Status: Ordered Mental Status 02/04/24 Barriers to Learning one year None evide nt Problem List Condition Confirmation Course Effective Dates Status H ealth Status Informant Arthritis Confirmed Active Asthma Confirmed Active Chronic hyponatremia Confirmed Active CHF (congestive heart failure) Confirmed Active CAD (coronary artery disease) Confirmed Active GERD (gastroesophageal reflux disease) Confirmed Active Hyperlipidemia Confirmed Active HTN (hypertension) Confirmed Active Hypothyroid Confirmed Active Mild cognitive impairment Confirmed Active ADELE on CPAP Confirmed Active Paroxysmal atrial fibrillation Confirmed Active Prediabetes Confirmed Active Recurrent major depression (disorder) Confirmed Active Weight disorder Confirmed Active Diagnosis Diagnosis Type Effective Dates Health Status Clinical Service Informant Mild cognitive impairment Discharge Diagnosis 02/04/24 Non-Specified Body mass index [BMI] 31.0-31.9, adult Discharge Diagnosis 02/04/24 Non-Specified Paroxysmal atrial fibrillation Discharge Diagnosis 02/04/24 Non-Specified Anemia Discharge Diagnosis 02/04/24 Non-Specified Procedures Procedure Date Related Diagnosis Body Site Status Chest X-ray 1 12/21/[address] of cervical spine 2 12/21/[address] of head without contrast 3 12/21/21 Completed Audiometry 4 04/06/21 Completed Right Achilles tendon repair 5 01/14/19 Completed Lumbar spinal fusion 6 09/06/18 Co mpleted Carotid artery doppler assessment 7 09/05/16 Completed diagnostic cystourethroscopy 12/16/[address] of abdomen and pelvis 8 11/16/15 Completed Total replacement of left knee joint 09/09/15 Completed Total knee arthroplasty 09/2015 C ompleted EKG 11/03/14 Completed Chest x-ray 9 11/02/14 Completed Echocardiogram 10 11/02/14 [facility] ed Full sleep study 11 09/10/14 Compl eted Pulmonary function test 12 08/27/14 Completed Capsule endoscopy 06/16/14 [facility] ed Colonoscopy 13, 14 05/28/14 Comple nydia Torn meniscus 2014 Completed Cardiac catheterization 2011 C ompleted Cardiac catheterization 2009 C ompleted TURP - Transurethral resecti on of prostate 2009 Completed Torn meniscus 1999 Completed Thumb / second thumb on right hand 1952 Completed EGD 16 Completed 1No acute cardiopulmonary abnormality. 2No acute intracranial abnormality. No cervical spine fracture. 3No acute intracranial abnormality. No cervical spine fracture. 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 Minimal plaque formation. 81. no renal or urteral stones. no hydronephrosis 2. no suspicious filling defcts seen within the opacified bilateral renal colecting systems, ureters, or bladder. 3. bilateral renal cysts. Additional subcentimeter hypodense lesions within the kidneys are too small to characterized but also likely represent cysts. 9No active disease in the chest 10see report 11Mild obstructive sleep apnea The SaO2 hovered below 90% for parts of the study. Clinical correlation is recommened. 12spirometry reveals moderate obstruction with a significant improvement in the FEV1 with the use of Albuterol. Lung volumes suggest air trapping and the diffusion capacity with corrected for alveolar volume is normal. The study would be most consistent with bronchial asthma 13Colo report reviewed and summarized as noted. 14The examined portion of the ileum was normal Diverticulosis from sigmoid to splenic flexure. The exam was otherwise normal on direct and retroflexion views. No specimens collected. There is no endoscopic evidence of bleeding in the entire colon. 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 Interpretation to follow. *Unknown* (02/04/24 1:55 PM) Imm. Retics [5.0-25.0 %] 25.3 % *HI* (02/04/24 1:55 PM) Hypochromia SLIGHT *Unknown* (02/04/24 1:55 PM) Microcytes MODERATE *Unknown* (02/04/24 1:55 PM) Ovalocytes FEW *Unknown* (02/04/24 1:55 PM) Polychromasia INCREASED *Unknown* (02/04/24 1:55 PM) Teardrop Cells FEW *Unknown* (02/04/24 1:55 PM) Platelet Morphology NORMAL *Unknown* (02/04/24 1:55 PM) Retic Hgb [30.8-36.6 pg] 16.4 pg *LOW* (02/04/24 1:55 PM) MPV [9.0-12.2 fL] 10.2 fL (02/04/24 1:55 PM) Immature Gran% 0.9 % (02/04/24 1:55 PM) Neut% 73.0 % (02/04/24 1:55 PM) Lymph% 19.8 % (02/04/24 1:55 PM) Edmonson% 6.3 % (02/04/24 1:55 PM) Baso% 0.0 % (02/04/24 1:55 PM) Eos% 0.0 % (02/04/24 1:55 PM) Immat Gran, Abs [0.0-0.4 K/uL] 0.09 K/uL (02/04/24 1:55 PM) Neut, Abs [2.0-7.7 K/uL] 7.37 K/uL (02/04/24 1:55 PM) Lymph, Abs [1.0-3.4 K/uL] 2.00 K/uL (02/04/24 1:55 PM) Edmonson, Abs [0-1.0 K/uL] 0.64 K/uL (02/04/24 1:55 PM) Baso, Abs [0-0.1 K/uL] 0.00 K/uL (02/04/24 1:55 PM) Eos, Abs [0-0.5 K/uL] 0.00 K/uL (02/04/24 1:55 PM) Type of Diff: MANUAL *Unknown* (02/04/24 1:55 PM) RDW [11.5-14.2 %] 20.1 % *HI* (02/04/24 1:55 PM) B12 [211-946 pg/mL] 433 pg/mL (02/04/24 1:55 PM) Iron [50-158 ug/dL] 11 ug/dL *LOW* (02/04/24 1:55 PM) Ferritin [30.0-400.0 ng/mL] 11.2 ng/mL *LOW* (02/04/24 1:55 PM) Folate [>7.2 ng/mL] 8.6 ng/mL (02/04/24 1:55 PM) Hct [39-48 %] 30.9 % *LOW* (02/04/24 1:55 PM) Hgb [13.0-17.0 g/dL] 8.6 g/dL *LOW* (02/04/24 1:55 PM) MCH [28-33 pg] 17.3 pg *LOW* (02/04/24 1:55 PM) MCHC [32-36 g/dL] 27.8 g/dL *LOW* (02/04/24 1:55 PM) MCV [81-96 fL] 62.3 fL *LOW* (02/04/24 1:55 PM) Plts [150-350 K/uL] 350 K/uL (02/04/24 1:55 PM) RBC [4.40-5.60 M/uL] 4.96 M/uL (02/04/24 1:55 PM) Retics (abs) [16.7-96.7 K/uL] 74.9 K/uL (02/04/24 1:55 PM) Retic (%) [0.40-2.05 %] 1.51 % (02/04/24 1:55 PM) Fe Sat [14-50 %] 3 % *LOW* (02/04/24 1:55 PM) Total IBC [250-400 ug/dL] 363 ug/dL (02/04/24 1:55 PM) Transferrin [200-360 mg/dL] 308 mg/dL (02/04/24 1:55 PM) WBC [4.0-10.4 K/uL] 10.09 K/uL (02/04/24 1:55 PM) Anatomic Pathology Reports * Report Case Number Specimen Responsible Pathologist Report Status Peripheral Blood Smear Report [id number] MD Patsy, Luan Whitehead; Final * Event Display: CP PB Dx RBCs are microcytic and hypochromic with moderate anisopoikilocytosis. There are increased pencil cells and other mis-shaped red cells. Neutrophils are normal in number and morphology. Lymphocytes are small to medium and mature with reactive forms. Monocytes are unremarkable. Platelets are normal in number and morphology. Re-He (16.4 pg), iron, ferritin are low. Findings are consistent with iron deficiency anemia Anil Garner MD (Electronically signed by) Verified: 02/05/2024 10:40 EST Performing Location: [facility] MD Patsy, [place] O:VERIFY; Authored Date: * Event Display: CP PB Part type Peripheral blood MD Patsy, Anil O:VERIFY; Authored Date: Vital Signs Most recent to oldest [Reference Range]: 1 Height 181.4 cm (02/04/24 1:16 PM) Patient Weight 104.7 kg (02/04/24 1:16 PM) Body Mass Index 31.82 kg/m2 (02/04/24 1:16 PM) Temperature [36.5-37.9 DegC] 36.9 DegC (02/04/24 1:16 PM) Heart Rate 114 bpm (02/04/24 1:16 PM) Respiratory Rate 24 br/min (02/04/24 1:16 PM) Blood Pressure 110/66mmHg (02/04/24 1:16 PM) Social History Social History Type Response Smoking Status Former Smoker, quit > 1 yr Sex Male Sex Representation Male (finding) FCM Outpt Note * PARRIS Philippe, Griselda Ho: PERFORM Event Display: FCM Outpt Note Authored Date: Assessment/Plan 1.Mild cognitive impairment STATUS:Chronic condition exacerbated/progressive/side effects of treatment -Was recentlyuptitratedto Ghtnlxjxkqu1ciijngd -remains on Sertraline 50mg daily as well. -Moodseems to have improved now that the Risperidone has increased back to 3 mg- -Daughter does note that he was having more paranoia with the lower doses. -He has been on Risperidone for years following remote history of hospitalization for severe depression -Tremors havenotworsenedwith theincreaseddosing DATA:Labs reviewed. GOAL:Maintain stability. PLAN:Cont current monitoring. Continue current Risperidone dose of 3mg daily Will consider dose adjustments depending on symptom response 2.Paroxysmal atrial fibrillation STATUS:Chronic condition, at goal- -Continuesto bemanaged withcardiology -Remains on Xareltoand Metoprolol for maintenance treatment -Did have recentapptbutcardiology does notfeelthat hisdx ormedsare thecausativeagent for hischroniclightheadedness. -Hewasencouraged towearcompressionstockings toaidin symptomrelief DATA:Labs reviewed. GOAL:Maintain stability. PLAN:Cont current monitoring. Continue current Xarelto and Metoprolol Given concurrent anemia may need to hold Xarelto Additional care to remain under discretion of cardiology. 3.Anemia STATUS:New problem, undifferentiateddx withuncertainprognosis- -Hgb/Hcthas beentrendingdownover the pastfewmonths -Hgb/Hct of 10.0/35.7on most recent [id number] -Does have associatedsmudgecellsas wellas moderateovalocytes. -Daughternotes that hehasbeenmoreSOB inadditiontohischroniclightheadedness. -Heis onXareltobut denies anyblack or tarry stools, BRBPR,hemoptysis, abnormal bruisingor bleeding DATA:Labs reviewed. GOAL:Maintain stability. PLAN:Cont current monitoring. Repeat labs including pathologist read on manual smear as well anemia workup Referral to hematology ([facility])for additional management Referral to Dr. Abbott for repeat colonoscopy/EGD Time spent on pre-visit plannin min Face to face time spent w/ patient: 23 min Time spent documenting pertinent clinical information into the EMR: 8min Total time: 35 min Chief Complaint Med F/U for resperidone Review of Systems ROS per HPI Physical Exam Vitals & Measurements T:36.9C HR:114(Monitored) RR:24 BP:110/66 SpO2:97% HT:181.4cm WT:104.700kg(Dosing) WT:104.7kg BMI:31.82 PHQ2 Data(Data Documented on:02/04/2024 13:20) Emotional health assessment NEGATIVE General: Well-developed, well-nourished patient, in no acute distress, pleasant and normal affect, intact memory. HEENT: No scleral injection or discharge. Moist mucous membranes. Clear oropharynx. No exudate. No lesions. Tympanic membranes are clear bilaterally. Neck is supple without lymphadenopathy or thyromegaly. Lungs: Clear to auscultation bilaterally with good effort. Cardiac: Regular rate and rhythm. No murmurs. No extremity edema. Abdomen: Soft, nontender, and nondistended. No masses. No hepatosplenomegaly. Neurologic: Grossly intact cranial nerves and 2+ patellar tendon reflexes bilaterally. Problem List/Past Medical History Ongoing Arthritis Asthma CAD (coronary artery disease) CHF (congestive heart failure) Chronic hyponatremia GERD (gastroesophageal reflux disease) HTN (hypertension) Hyperlipidemia Hypothyroid Mild cognitive impairment ADELE on CPAP Paroxysmal atrial fibrillation Prediabetes Recurrent major depression (disorder) Weight disorder Resolved Chest pain Orthostatic hypotension SOB (shortness of breath) Vasovagal syncope Procedure/Surgical History CT of cervical spine| Service Date: 2Chest X-ray| Service Date: 2CT of head without contrast| Service Date: 2Audiometry| Service Date: 2Right Achilles tendon repair| Service Date: 01/14/2019Lumbar spinal fusion| Service Date: 09/06/2018Carotid artery doppler assessment| Service Date: 09/05/2016diagnostic cystourethroscopy| Service Date: 12/16/2015CT of abdomen and pelvis| Service Date: 11/16/2015Total replacement of left knee joint| Service Date: 09/09/2015Total knee arthroplasty| Service Date: 09/2015EKG| Service Date: 11/03/2014Echocardiogram| Service Date: 11/02/2014Chest x-ray| Service Date: 11/02/2014Full sleep study| Service Date: 09/10/2014Pulmonary function test| Service Date: 08/27/2014Capsule endoscopy| Service Date: 06/16/2014Colonoscopy| Service Date: 05/28/2014Torn meniscus| ServiceDate: 2014Cardiac catheterization| Service Date: 2011Cardiac catheterization| Service Date: 2009TURP - Transurethral resection of prostate| Service Date: 2009Torn meniscus| Service Date: umb / second thumb on right hand| Service Date: Medications acetaminophen(Tylenol) albuterol(albuterol CFC free 90 mcg/inh MDI), 2 puff, inhaled, qid, PRN, 3 refills alfuzosin(alfuzosin 10 mg oral tablet, extended release), 10 mg= 1 tab, PO, Daily aspirin, 81 mg, PO, Daily famotidine(famotidine 20 mg oral tablet), 1 tab, PO, bid fluticasone(fluticasone CFC free 220 mcg/inh MDI), 2 puff, inhaled, bid, 4 refills inhalation accessory(inhaler spacer), See Instructions levothyroxine(levothyroxine 175 mcg (0.175 mg) oral tablet), 1 tab, PO, Daily melatonin(melatonin 10 mg oral capsule), 1/2 cap, PO, qhs metoprolol(Metoprolol Succinate ER 25 mg oral tablet, extended release), 12.5 mg= 0.5 tab, PO, Daily, 3 refills pravastatin(pravastatin 20 mg oral tablet), 1 tab, PO, qhs risperiDONE(risperiDONE 3 mg oral tablet), 1 tab, PO, Daily, 4 refills rivaroxaban(Xarelto 20 mg oral tablet), 20 mg= 1 tab, PO, qPM, 3 refills sertraline(sertraline 50 mg oral tablet), 1 tab, PO, Daily Allergies levoFLOXacinRuptured achiles tendon Social History Smoking Status Former Smoker, quit > 1 yr Alcohol - No Risk - Comments: a beer every know and then Exercise - Regular exercise Times per week:3-4 times/week Exercise type:stationary bike, golf Nutrition/Health Diet description:widely varied, cooks at home Type of diet:Regular Caffeine intake amount:1 diet coke and 2-3 cups of coffee/day Wants to lose weight:No Sleeping concerns:No Feels highly stressed:No Substance Abuse - Denies Substance Abuse Tobacco - Denies Tobacco Use Family History Aneurysm: Mother. Atrial fibrillation: Father. Heart disease: Father. Hypertension: Brother. Pacemaker rhythm: Father. Ventricular arrhythmia: Father. Health Status Family Member(s) Immunizations Vaccine Date Status SARS-CoV-2 mRNA (xeazmwguron-pbcb-lcb) 05/30/2021 Recorded SARS-CoV-2 (COVID-19) mRNA BNT-162b2 vax 11/02/2020 Recorded Comments : 2020-11-15: Historical information-source unspecified influenza virus vaccine, inactivated 10/27/2020 Recorded Comments : Boni kulkarni per state database SARS-CoV-2 (COVID-19) mRNA BNT-162b2 vax 03/17/2020 Recorded Comments : 2020-05-17: Historical information-source unspecified SARS-CoV-2 (COVID-19) mRNA BNT-162b2 vax 02/25/2020 Recorded Comments : 2020-05-17: Historical information-source unspecified influenza virus vaccine, inactivated 11/05/2017 Recorded pneumococcal 23-valent vaccine 03/01/2017 Given influenza virus vaccine, inactivated 10/06/2016 Recorded pneumococcal 13-valent vaccine 01/23/2014 Recorded Comments : 2020-05-17: Historical information-source unspecified pneumococcal 13-valent vaccine 01/19/2014 Recorded tetanus/diphtheria/pertuss, acel (Tdap) 05/06/2012 Recorded zoster vaccine live 02/06/2012 Recorded Recommendations Health Maintenance Pending(in the next year) OverDue Medicare Annual Wellness Visit due09/10/18and every 1year Adult Influenza Vaccine due08/05/23and every 1year Due Adult Social Determinants of Health Screening due02/04/24Unknown Frequency Adult Tdap/Td Vaccine due02/04/24Unknown Frequency Falls Plan of Care due02/04/24Unknown Frequency Shingles Vaccine due02/04/24One-time only Satisfied(in the past 1 year) Satisfied Body Mass Index on02/04/24.Satisfied by DOMINGO Rolle Kathryn Lipid Screening on09/26/23.Satisfied by Contributor_system, [employer] Electronic Signature on File Electronically Reviewed/Signed by: Griselda Philippe PA-C Author Signature Dt/Tm:02/04/2024 02:03 PM Department of Family Medicine [facility] Patient Care team information Care Team Personnel Name: MD Lopez Christopher Position: Physician - Family Med Member Role: Primary Care Provider Address: [address] [place] [address] Care Team Related Persons Name: JACQUELINE MOSLEY Name: BRIANNA KELLY"
--- OUTSIDE RECORDS SUMMARY | 2024-02-08 17:53 | External Medical Summary | Continuity of Care Document ---
Author Name Unknown Organization [facility] [address] [place] [phone] Care Team Providers Care Photoresist Printer Name Role Phone John Yonimairamarysol Primary Care Physician [phone] Encounter [facility] [id number] Date(s): 02/04/24 - 02/04/[address] [facility] [address] [place] [address] [address] [phone] Encounter Diagnosis Mild cognitive impairment(Discharge Diagnosis) - 02/04/24 Paroxysmal atrial fibrillation(Discharge Diagnosis) - 02/04/24 Body mass index [BMI] 31.0-31.9, adult(Discharge Diagnosis) - 02/04/24 Anemia(Discharge Diagnosis) - 02/04/24 Anemia, unspecified(Final) - Discharge Disposition: Home or Self Care Attending Physician: APRRIS Philippe Kimberly A Allergies, Adverse Reactions, Alerts Substance Criticality Severity Reaction Reaction Severity Status levoFLOXacin Ruptured achiles tendon Active Assessment and Plan Extracted from: Title:Office Visit Note\\ Author:PARRIS Philippe Ki mberly A Date:02/04/24 1.Mild cognitive impairmen t STATUS:Chronic condition exacerbated/progressive/side effects of treatment -Was recentlyuptitratedto Usnfkjrghsn5frgwdlr -remains on Sertraline 50mg daily as well. [...] the pastfewmonths -Hgb/Hct of 10.0/35.7on most recent [id number] -Does have associatedsmudgecellsas wellas moderateovalocytes. -Daughternotes that hehasbeenmoreSOB inadditiontohischroniclightheadedness. -Heis onXareltobut denies anyblack or tarry stools, BRBPR,hemoptysis, abnormal bruisingor bleeding DATA:Labs reviewed. GOAL:Maintain stability. PLAN:Cont current monitoring. Repeat labs including pathologist read on manual smear as well anemia workup Referral to hematology ([facility])for additional management Referral to Dr. Abbott for repeat colonoscopy/EGD Time spent on pre-visit plannin min Face to face time spent w/ patient: 23 min Time spent documenting pertinent clinical information into the EMR: 8min Total time: 35 min Immunizations Given and Recorded Vaccine Date Status Refusal Reason SARS-CoV-2 mRNA (swzymtqbpqv-itdk-vuz) 05/30/21 Re corded SARS-CoV-2 (COVID-19) mRNA BNT-162b2 [...] exercise, PRN: Shortness of Breath, Pharmacy: [id number] [address] Start Date: 09/28/17 Status: Ordered [...] bid, Disp# 180 tab, Refills: 4, Pharmacy: [facility] #[id number] Start Date: 01/18/24 Status: Ordered fluticasone CFC free 220 mcg/inh MDI Start: 06/08/23 9:56:00 AM EDT, 2 puff, inhaled, bid, Disp# 36 g, Refills: 4, supposed to be 220 BID for chronic use, Pharmacy: [facility] #[id number] Start Date: 06/08/23 Stop Date: 08/31/24 Status: Ordered inhaler spacer Start: 10/30/14 12:08:07 PM EDT, See Instructions, Disp# 1 each, Refills: 0, to be used bid with flovent inhaler, [facility]acy: [id number] [address] Start Date: 10/30/14 Status: Ordered levothyroxine 175 mcg (0.175 mg) oral tablet Start: 06/05/23 12:06:00 PM EDT, 1 tab, PO, Daily, Disp# 90 tab, Refills: 4, [facility]: [facility] #[id number] Start Date: 06/05/23 Status: Ordered melatonin 10 [...] 90 tab, Refills: 3, [facility]acy: [facility] #[id number] Start Date: 06/05/23 Status: Ordered risperiDONE 3 mg oral tablet Start: 12/28/23 12:49:00 PM EST, 1 tab, PO, Daily, Disp# 90 tab, Refills: 4, [facility]acy: [facility] #[id number] Start Date: 12/28/23 Status: Ordered sertraline 50 mg oral tablet Start: 07/05/23 3:54:00 PM EDT, 1 tab, PO, Daily, Disp# 90 tab, Refills: 4, [facility]acy: [facility] #[id number] Start Date: 07/05/23 Status: Ordered Tylenol Start: 10/22/19 12:43:00 PM EDT Start Date: 10/22/19 Status: Ordered Xarelto 20 mg oral tablet Start: 04/23/23 9:29:00 AM EDT, 1 tab, PO, qPM, Disp# 90 tab, Refills: 3, Pharmacy: [facility] #[id number] Start Date: 04/23/23 Status: Ordered Mental Status [...] x-ray 9 11/02/14 Completed Echocardiogram 10 11/02/14 [facility] ed Full sleep study 11 09/10/14 Compl eted Pulmonary function test 12 08/27/14 Completed Capsule endoscopy 06/16/14 [facility] ed Colonoscopy 13, 14 05/28/14 Comple nydia [...] PM) Lymph% 19.8 % (02/04/24 1:55 PM) [place]% 6.3 % (02/04/24 1:55 PM) Baso% 0.0 % (02/04/24 1:55 PM) Eos% 0.0 % (02/04/24 1:55 PM) Immat Gran, Abs [0.0-0.4 K/uL] 0.09 K/uL (02/04/24 1:55 PM) Neut, Abs [2.0-7.7 K/uL] 7.37 K/uL (02/04/24 1:55 PM) Lymph, Abs [1.0-3.4 K/uL] 2.00 K/uL (02/04/24 1:55 PM) [place], Abs [0-1.0 K/uL] 0.64 K/uL (02/04/24 1:55 [...] Pathologist Report Status Peripheral Blood Smear Report [id number] MD Patsy, Luan Whitehead; Final * Event [...] by) Verified: 02/05/2024 10:40 EST Performing Location: [facility] MD Patsy, [place] O:VERIFY; Authored [...] condition exacerbated/progressive/side effects of treatment -Was recentlyuptitratedto Yyvltvohuwz5qqngpfg -remains on Sertraline 50mg daily as well. [...] the pastfewmonths -Hgb/Hct of 10.0/35.7on most recent [id number] -Does have associatedsmudgecellsas wellas moderateovalocytes. -Daughternotes that hehasbeenmoreSOB inadditiontohischroniclightheadedness. -Heis onXareltobut denies anyblack or tarry stools, BRBPR,hemoptysis, abnormal bruisingor bleeding DATA:Labs reviewed. GOAL:Maintain stability. PLAN:Cont current monitoring. Repeat labs including pathologist read on manual smear as well anemia workup Referral to hematology ([facility])for additional management Referral to Dr. Abbott for [...] Member(s) Immunizations Vaccine Date Status SARS-CoV-2 mRNA (bzkqwvwkhya-uogs-vrz) 05/30/2021 Recorded SARS-CoV-2 (COVID-19) mRNA BNT-162b2 vax [...] Rolle Kathryn Lipid Screening on09/26/23.Satisfied by Contributor_system, [employer] Electronic Signature on File Electronically Reviewed/Signed by: Griselda Philippe PA-C Author Signature Dt/Tm:02/04/2024 02:03 PM Department of Family Medicine [facility] Patient Care team information Care Team Personnel Name: MD Lopez Christopher Position: Physician - Family Med Member Role: Primary Care Provider Address: [address] [place] [address] Care Team Related Persons Name: JACQUELINE MOSLEY Name: BRIANNA KELLY"
--- OUTSIDE RECORDS SUMMARY | 2024-02-08 17:54 | External Medical Summary | Continuity of Care Document ---
Author Name Unknown Organization [facility] [address] [facility] Address [address] [place], [place] [id number] Care Team Providers Care Dynamic Balancer Set Up Worker Name Role Phone Harvinder Lopez Primary Care Physician [phone] Encounter [facility] [id number] Date(s): 01/24/24 - 01/24/24 [facility] [address], [address] [place] [address] [phone] Encounter Diagnosis Anemia(Discharge Diagnosis) - 01/24/24 Hypotension(Discharge Diagnosis) - 01/24/24 Afib(Discharge Diagnosis) - 01/24/24 Discharge Disposition: Home or Self Care Attending Physician: HARDIK Lawson Sarah A Referring Physician: HARDIK Lawson Sarah A Allergies, Adverse Reactions, Alerts Substance Criticality Severity Reaction Reaction Severity Status levoFLOXacin Ruptured achiles tendon Active Assessment and Plan Extracted from: Title:Cardiology Office Visit Note Author:HARDIK Bray rd, Sarah A Date:01/24/24 Impression: 1. Paroxysmal atrial fibrillation on beta blockers and anticoagulation. 2. Holter monitor showing PACs and rare PVCs and atrial triplets, but no atrial fibrillation. 3. Coronary disease status post cardiac catheterization 12/2011, 50% RCA lesion, 30% LAD lesion and a 40% circumflex lesion. a. Negative stress 10/2012 for ischemia. 4. Echocardiogram at [facility], 10/2014 with preserved left ventricular systolic function, moderate left ventricular hypertrophy, normal RV size and function with a normal TAPSE. 5. No evidence of significant carotid artery disease. 6. Orthostatic hypotension with potential degree of autonomic dysfunction. 7. Obstructive sleep apnea with O2 sat less than 90%, 22% of the time; tolerating CPAP. 8. Asthma, improved with Flovent. 9. Significant esophageal reflux disease. 10. History of extensive GI bleed, spring 2014. 11. Status post left Achilles tendon rupture secondary to fluoroquinolones. Mr. Cook is still having a lot of lightheadedness. He wore an even monitor this summer to rule out tachy niranjan syndrome. He is having episodes of hypotension so I encouraged him to drink more water and wear compression stockings. We could consider midodrine but given his normal blood pressures most of time, will hold off. He may also feel better with some iron supplementation given his microcytic anemiaso I will refer to hematology for possible iron infusions. He continues on anticoagulation for stroke prevention. His heart rate is controlled. He will return to the clinic in 6 months Immunizations Given and Recorded Vaccine Date Status Refusal Reason SARS-CoV-2 mRNA (ceqvdiraamk-opng-hbl) 05/30/21 Re corded SARS-CoV-2 (COVID-19) mRNA BNT-162b2 [...] before exercise, PRN: Shortness of Breath, Pharmacy: [id number] Start Date: 09/28/17 Status: Ordered alfuzosin 10 mg oral tablet, extended release Start: 03/09/22 9:45:00 AM EST, 1 tab, PO, Daily Start Date: 03/09/22 Status: Ordered aspirin Start: 02/20/14 10:52:00 AM EST, 81 mg =, PO, Daily Start Date: 02/20/14 Status: Ordered famotidine 20 mg oral tablet Start: 01/18/24 3:01:00 PM EST, 1 tab, PO, bid, Disp# 180 tab, Refills: 4, Pharmacy: [facility] #[id number] Start Date: 01/18/24 Status: Ordered fluticasone CFC free 220 mcg/inh MDI Start: 06/08/23 9:56:00 AM EDT, 2 puff, inhaled, bid, Disp# 36 g, Refills: 4, supposed to be 220 BID for chronic use, Pharmacy: [facility] #[id number] Start Date: 06/08/23 Stop Date: 08/31/24 Status: Ordered inhaler spacer Start: 10/30/14 12:08:07 PM EDT, See Instructions, Disp# 1 each, Refills: 0, to be used bid with flovent inhaler, Pharmacy: [id number] Start Date: 10/30/14 Status: Ordered levothyroxine 175 mcg (0.175 mg) oral tablet Start: 06/05/23 12:06:00 PM EDT, 1 tab, PO, Daily, Disp# 90 tab, Refills: 4, Pharmacy: [facility] #[id number] Start Date: 06/05/23 Status: Ordered melatonin 10 mg oral capsule Start: 11/18/15 2:47:00 PM EDT, 1/2 cap, PO, qhs Start Date: 11/18/15 Status: Ordered Metoprolol Succinate ER 25 mg oral tablet, extended release Start: 01/17/23 10:54:00 AM EST, 0.5 tab, PO, Daily, Disp# 45 tab, Refills: 3, Pharmacy: [facility] #[id number] Start Date: 01/17/23 Status: Ordered pravastatin 20 mg oral tablet Start: 06/05/23 10:30:00 AM EDT, 1 tab, PO, qhs, Disp# 90 tab, Refills: 3, [facility] #[id number] Start Date: 06/05/23 Status: Ordered risperiDONE 3 mg oral tablet Start: 12/28/23 12:49:00 PM EST, 1 tab, PO, Daily, Disp# 90 tab, Refills: 4, [facility]acy: [facility] #[id number] Start Date: 12/28/23 Status: Ordered sertraline 50 mg oral tablet Start: 07/05/23 3:54:00 PM EDT, 1 tab, PO, Daily, Disp# 90 tab, Refills: 4, [facility]acy: [facility] #[id number] Start Date: 07/05/23 Status: Ordered Tylenol Start: 10/22/19 12:43:00 PM EDT Start Date: 10/22/19 Status: Ordered Xarelto 20 mg oral tablet Start: 04/23/23 9:29:00 AM EDT, 1 tab, PO, qPM, Disp# 90 tab, Refills: 3, [facility]acy: [facility] #[id number] Start Date: 04/23/23 Status: Ordered Mental Status 01/24/24 Barriers to Learning one year None evide nt Mandatory Health Literacy Documentation Yes Health Literacy Communication Barriers N ever Primary Language Hungarian Problem List Condition Confirmation Course Effective Dates [...] Diagnosis Diagnosis Type Effective Dates Health Status Clini alfa Service Informant Anemia Discharge Diagnosis 01/24/24 Non-Specified Hypotension Discharge Diagnosis 01/24/24 Non-Specified Afib Discharge Diagnosis 01/24/24 Non-Specified Procedures Procedure Date Related Diagnosis Body [...] x-ray 9 11/02/14 Completed Echocardiogram 10 11/02/14 [facility] ed Full sleep study 11 09/10/14 Compl eted Pulmonary function test 12 08/27/14 Completed Capsule endoscopy 06/16/14 [facility] ed Colonoscopy 13, 14 05/28/14 Comple nydia Torn meniscus 2014 Completed Cardiac catheterization 2011 C ompleted Cardiac catheterization 2009 C ompleted TURP - Transurethral resecti on of prostate 2009 Completed Torn meniscus 1999 Completed Thumb / second thumb on right hand 1952 Completed EGD Completed 1No acute cardiopulmonary abnormality. 2No acute [...] hand. second digit removed at age [age] Vital Signs Most recent to oldest [Reference Range]: 1 Patient Weight 105 kg (01/24/24 3:38 PM) Heart Rate 85 bpm (01/24/24 3:38 PM) Respiratory Rate 18 br/min (01/24/24 3:38 PM) Blood Pressure 126/86mmHg (01/24/24 3:38 PM) BP Location # 1 Left Arm (01/24/24 3:38 PM) Social History Social History Type Response Smoking Status Former Smoker, quit > 1 yr Sex Male Sex Representation Male (finding) Cardiology Outpatient Note * HARDIK Lawson Sarah A: PERFORM, MODIFY, MODIFY, MODIFY, MODIFY Event Display: Cardiology Outpt Note Authored Date: [id number] Primary Care Provider MD Lopez Christopher Referring Provider HARDIK Lawson Sarah A Chief Complaint F/U no concerns Denies chest pressure, Palpitations, heart racing, or edema. SOB with exertion stable - CPAP every night .- no unusual bleeding no resent ER visits- History of Present Illness Mr. Cook presents for follow up of his history of afib. He is still having lightheadedness with activity. Sometimes this is accompanied by wheezing and hisalbuterol will help but it's not always associated with the wheezing. He is having episodes of hypotension at times with systolics in the 80s. No chest discomfort. Review of Systems All other systems reviewed and negative except as discussed in the HPI Physical Exam Vitals & Measurements HR:85(Monitored) RR:18 BP:126/86 SpO2:98% WT:105kg WT:105.000kg(Dosing) Physical Examination General: Alert and oriented, No acute distress. Respiratory: Lungs are clear to auscultation, Respirations are non-labored. Cardiovascular: Normal rate, Regular rhythm, No murmur, No edema, no carotid bruits to auscultation bilaterally. Integumentary: Warm, Dry, [place] Neurologic: Alert, Oriented. Cognition and Speech: Speech clear and coherent. Psychiatric: Cooperative, Appropriate mood & affect. Assessment/Plan Impression: 1. Paroxysmal atrial fibrillation on beta blockers and anticoagulation. 2. Holter monitor showing PACs and rare PVCs and atrial triplets, but no atrial fibrillation. 3. Coronary disease status post cardiac catheterization 12/2011, 50% RCA lesion, 30% LAD lesion and a 40% circumflex lesion. a. Negative stress 10/2012 for ischemia. 4. Echocardiogram at [facility], 10/2014 with preserved left ventricular systolic function, moderate left ventricular hypertrophy, normal RV size and function with a normal TAPSE. 5. No evidence of significant carotid artery disease. 6. Orthostatic hypotension with potential degree of autonomic dysfunction. 7. Obstructive sleep apnea with O2 sat less than 90%, 22% of the time; tolerating CPAP. 8. Asthma, improved with Flovent. 9. Significant esophageal reflux disease. 10. History of extensive GI bleed, spring 2014. 11. Status post left Achilles tendon rupture secondary to fluoroquinolones. Mr. Cook is still having a lot of lightheadedness. He wore an even monitor this summer torule out tachy niranjan syndrome. He is having episodes of hypotension so I encouraged him to drink more water and wear compression stockings. We could consider midodrine but given his normal blood pressures most of time, will hold off. He may also feel better with some iron supplementation given his microcytic anemiaso I will refer to hematology for possible iron infusions. He continues on anticoagulation for stroke prevention. His heart rate is controlled. He will return to the clinic in 6 months Problem List/Past Medical History Ongoing Arthritis Asthma [...] Ventricular arrhythmia: Father. Health Status Family Member(s) Electronic Signature on File CC: Harvinder Lopez MD [address] [address] Electronically Reviewed/Signed by: HARDIK Velazquez Author Signature Dt/Tm:01/24/2024 04:43 PM [facility] Patient Care team information Care Team Personnel Name: MD Lopez Christopher Position: Physician - Family Med Member Role: Primary Care Provider Address: [address] [place] [address] [place] Care Team Related Persons Name: JACQUELINE MOSLEY Name: BRIANNA COOK"
[2024-02-08] MEDS: MELATONIN 3 MG TAB PO SCH (20:53)
[2024-02-08] MEDS: FAMOTIDINE 20 MG TAB PO SCH (20:55)
[2024-02-08] MEDS: PRAVASTATIN SOD 20 MG TAB PO SCH (20:56)
[2024-02-08] MEDS: risperiDONE 2 MG TABLET PO SCH (20:56)
[2024-02-08] MEDS: PANTOprazole 40 MG/10 ML SYR IV SCH (20:58)
[2024-02-08 21:31] LABS: Hematocrit (blood only) 26.7 % (42.0-52.0); Hemoglobin 7.8 g/dl (14.0-18.0)
[2024-02-09] MEDS: risperiDONE 1 MG TABLET PO SCH (00:11)
[2024-02-09 03:41] LABS: Hematocrit (blood only) 25.9 % (42.0-52.0); Hemoglobin 7.5 g/dl (14.0-18.0); Mean Corpuscular Hemoglobin 17.1 pg (25.0-34.0); Mean Corpuscular Volume 59.1 fL (80.0-100.0); Platelet Count 334 K/uL (130-400); RDW Coefficient of Variation 19.5 % (11.5-14.5); RDW Standard Deviation 39.8 fL (36.4-46.3); Red Blood Count 4.38 M/uL (4.70-6.10); White Blood Count 8.27 K/ul (4.8-10.8)
[2024-02-09 03:52] LABS: Basophils # (auto) 0.04 K/uL (0.00-0.20); Basophils % (auto) 0.5 %; Eosinophils # (auto) 0.15 K/uL (0.00-0.50); Eosinophils % (auto) 1.8 %; Hypochromasia Present; Immature Granulocytes # (auto) 0.09 K/uL (0.01-0.20); Immature Granulocytes % (auto) 1.1 %; Lymphocytes # (auto) 1.59 K/uL (1.20-3.40); Lymphocytes % (auto) 19.2 %; Microcytosis Present; Monocytes # (auto) 0.84 K/uL (0.11-0.59); Monocytes % (auto) 10.2 %; Neutrophils # (auto) 5.56 K/uL (1.40-6.50); Neutrophils % (auto) 67.2 %; Ovalocytes 1+; Tear Drop Cells 1+
[2024-02-09 04:01] LABS: Albumin Globulin Ratio 1.2 (0.9-2); Albumin Level 3.2 gm/dl (3.4-5.0); BUN Creatinine Ratio 21.2 (10-20); Bilirubin,Total 0.4 mg/dl (0.2-1.0); Calcium 8.1 mg/dl (8.6-10.3); Chol HDL Ratio 3.6 (0-5); Creatinine Clr Calc Pharmacy 87.6 ml/min; Globulin 2.7 gm/dl (2.5-4.0); Potassium 4.1 mmol/L (3.5-5.1); Thyroid Stimulating Hormone 2.651 uIu/ml (0.300-4.500); Total Protein 5.9 gm/dl (6.0-8.3)
[2024-02-09] MEDS: LEVOTHYROXINE SODIUM 175 MCG TABLET PO SCH (06:38)
--- NOTE | 2024-02-09 07:36 | Hospitalist Progress Note ---
Date of Service February 09, 2024 Assessment & Plan (1) Chest pain: (2) Atrial fibrillation with rapid ventricular response: (3) Profound anemia: (4) Sleep apnea: Plan 78-year-old male presents to the ED with chest pressure and bilateral arm pain associate with shortness of breath 2 hours prior to presentation, history of atrial fibrillation on Xarelto therapy. May have had a short run of tachyarrhythmia prior to presentation was self resolved Chest pain rule out angina. Serial troponins undertaken continuing home medications of metoprolol succinate, hold rivaroxaban due to anemia, in case catheterization is needed conversion to heparin cautiously at appropriate timeframe patient remains on pravastatin for cholesterol. Echocardiogram revealed no regional wall motion abnormalities EF of 60 to 65% mildly dilated ascending aorta no change from 2021. Troponins went from 28-30 4-24 doubt this is a myocardial event Iron deficiency anemia, hemoglobin dropped from 9.8 to 7.5, rivaroxaban held, PPI consider GI evaluation Obstructive sleep apnea. Patient CPAP machine is at home. We have ordered CPAP for here. The patient stated to use 4 L of oxygen however this has been clarified by the patient's daughter she is looked up his outpatient sleep study on their portal. He uses 2 L of oxygen into his CPAP and is an auto CPAP from 4 to 20 cm of water. Admission and Anticipated Discharge Date Admission Date: February 08, 2024 Results & Data Results & Data Vital Signs (Past 12 Hours) Vital Signs Temp Pulse Pulse Resp BP Pulse Ox O2 Del Method 02/09/24 03:35 97.7 F 83 19 100/61 96 Room Air 02/08/24 23:00 84 21 99 02/08/24 22:50 97.9 F 84 22 108/65 95 Room Air 02/08/24 20:00 Room Air 02/08/24 19:36 97.5 F L 87 20 135/80 99 Room Air 02/08/24 19:32 97.5 F L 88 16 135/88 99 Room Air O2 Flow Rate 02/09/24 03:35 02/08/24 23:00 4 02/08/24 22:50 02/08/24 20:00 02/08/24 19:36 02/08/24 19:32 PG Care Time/CCT Total # of Minutes Spent Total Time Spent with Patient: Total time spent is greater than 50% in coordination of care (as documented) at patient's floor/unit and/or counseling patient: Coding Diagnoses Chest pain R07.9 Chest pain type: unspecified Atrial fibrillation with rapid ventricular response I48.91 Profound anemia D64.9 Sleep apnea G47.30 (1) Chest pain Chest pain type: unspecified Qualified Code(s): R07.9 - Chest pain, unspecified
[2024-02-09] MEDS: FLUTICASONE FUROATE 100MCG 14 PUFFS/INHALER INH SCH (07:48)
[2024-02-09] MEDS: METOPROLOL SUCC 25MG EXT REL TAB PO SCH (07:49)
[2024-02-09] MEDS: TAMSULOSIN HCL 0.4 MG CAP PO SCH (07:49)
[2024-02-09] MEDS: PANTOprazole 40 MG/10 ML SYR IV SCH (08:00)
[2024-02-09 08:08] LABS: Hematocrit (blood only) 27.1 % (42.0-52.0); Hemoglobin 7.8 g/dl (14.0-18.0)
--- NOTE | 2024-02-09 09:52 | Gastrointestinal Consultation ---
Date of Consultation February 09, 2024 Assessment & Plan (1) Iron deficiency anemia: He has iron deficiency anemia that is being addressed as an outpatient. He is not having active bleeding now. His work up can be done as an outpatient as planned. He does need to have EGD and colonoscopy electively. I will try to find the records of his last EGD/Colonoscopy. History of Present Illness Reason for Consultation: anemia Attending Physician: Ignacio Bowman MD History of Present Illness 78 year old man admitted with a fib RVR and found to have iron deficiency anemia. This has recently been diagnosed as an outpatient and he is being seen in the [facility] for it. He is unaware of any scheduled endoscopic procedures for this though. He denies any GI complaints. He denies heartburn or indigestion, abdominal pain or problems with his bowel movements. He does not see melenic stools or any blood in his stools. He says he has had a number of colonoscopies the last being about "five years ago" he says at [facility] because he was admitted with GI bleeding although I cannot find records of this. He tells me he had an EGD and a colonoscopy then and they found a spot in his esophagus that was bleeding. Allergies Allergy/AdvReac Type Severity Reaction Status Date / Time levofloxacin AdvReac ruptured Verified 09/06/23 15:14 achilles tendon Quinolones AdvReac Achilles Verified 09/06/23 15:14 Tendon Rupture levaquin AdvReac Unknown Uncoded 09/06/23 15:14 Home Medications Medication Instructions Recorded Confirmed Type aspirin 81 mg tablet,delayed 81 mg PO HS 08/20/18 02/08/24 History release levothyroxine 175 mcg tablet 175 mcg PO QAM 08/20/18 02/08/24 History pravastatin 20 mg tablet 20 mg PO HS 08/20/18 02/08/24 History sertraline 50 mg tablet 50 mg PO DAILY 03/03/22 02/08/24 History famotidine 20 mg tablet 20 mg PO BID 07/16/23 02/08/24 History melatonin 5 mg capsule 10 mg PO HS 07/16/23 02/08/24 History cyanocobalamin (vitamin B-12) 1,000 mcg IM .COMPLEX #180 mL 07/18/23 02/08/24 Rx 1,000 mcg/mL injection solution alfuzosin 10 mg tablet,extended 10 mg PO DAILY #90 tabs 08/01/23 02/08/24 Rx release 24 hr (Uroxatral) metoprolol succinate 25 mg 12.5 mg PO DAILY 09/06/23 02/08/24 History tablet,extended release 24 hr cholecalciferol (vitamin D3) 1,250 50,000 unit PO WK 02/08/24 02/08/24 History mcg (50,000 unit) tablet fluticasone propionate 220 2 puff inhalation BID 02/08/24 02/08/24 History mcg/actuation HFA aerosol inhaler risperidone 3 mg tablet 3 mg PO HS 02/08/24 02/08/24 History rivaroxaban 20 mg tablet (Xarelto) 20 mg PO QPM 02/08/24 02/08/24 History Patient History Medical History Near syncope Syncope and collapse Stroke-like symptoms Acute prostatitis 01/02/19 - taking Levaquin daily Fusion of spine lumbar CORREA (dyspnea on exertion) At cardiology office visit in June, pt admitted his CORREA felt worse than baseline. Cardio updated echo and had patient wear pulse ox overnight to rule out issues with CPAP/ADELE. Both WNL. CAD (coronary artery disease) Mild-moderate nonobstructive Osteoarthritis Degenerative disc disease Chronic back pain GERD (gastroesophageal reflux disease) Anemia HX GI bleed History of, ~0771-5917. Pt reports 2 units of blood transfused Atrial fibrillation Paroxysmal, symptomatic, on Sotolol and ASA 81mg (no further anticoagulation due to h/o severe GI bleed) Sleep apnea CPAP Surgical History S/P cataract surgery History of lumbar fusion 09/06/18 --> MAC 3, ETT 8.0, grade view I. History of arthroscopy LEFT KNEE X2 History of total knee replacement LEFT KNEE Hx of transurethral resection of prostate History of esophagogastroduodenoscopy (EGD) History of colonoscopy History of cardiac cath X3. NO STENTS. Family History Grandmother (Paternal) FHx: leukemia Grandfather (Paternal) No problems noted. Grandfather Gastric cancer Father , age 80 of cardiac condition Cardiac disorder Hypertension Nephrolithiasis Mother , age 66 of a cerebral event Cardiac disorder Cerebral aneurysm Brother Hypertension Grandmother Gastric cancer Social History Smoking Status: Former smoker Age Started Using Tobacco: 16; Age Quit Using Tobacco: 34; packs per day: 3; Second Hand Exposure: No; Do You Dip or Chew Tobacco: No; Hx Alcohol Use: Yes Alcohol type: beer Hx Substance Use: No Preferred Language: Vietnamese Communication Ability: Effective Furnace Puncher Required: No Beliefs That Will Affect Care: None Current Living Situation: Alone current occupational status: retired 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 Feels Safe at Home: Yes Assistive Devices: Cane, Glasses, Hearing Aid - Bilateral and Walker Review of Systems Review of Systems: All systems reviewed & are unremarkable except as noted in HPI & below Physical Exam Constitutional: WD/WN, vitals as above Neck: trachea midline, no thyromegaly Respiratory: normal respiratory effort, lungs clear to auscultation Cardiovascular: RRR, no murmur, no edema Gastrointestinal (Abdomen): normal bowel sounds, soft, nontender, no hepatosplenomegaly Results & Data Vital Signs (Past 12 Hours) Vital Signs Temp Pulse Pulse Resp BP Pulse Ox O2 Del Method 02/09/24 08:08 36.4 C L 79 21 118/67 97 Room Air 02/09/24 03:35 36.5 C 83 19 100/61 96 Room Air 02/08/24 23:00 84 21 99 02/08/24 22:50 36.6 C 84 22 108/65 95 Room Air O2 Flow Rate 02/09/24 08:08 02/09/24 03:35 02/08/24 23:00 4 02/08/24 22:50 Laboratory Results 02/09/24 02/09/24 02/09/24 Range/Units 07:56 06:09 02:59 WBC 8.27 (4.8-10.8) K/ul RBC 4.38 L (4.70-6.10) M/uL Hgb 7.8 L 7.5 L (14.0-18.0) g/dl Hct 27.1 L 25.9 L (42.0-52.0) % MCV 59.1 L (80.0-100.0) fL MCH 17.1 L (25.0-34.0) pg MCHC 29.0 L (32.0-36.0) g/dL RDW Std Deviation 39.8 (36.4-46.3) fL RDW Coeff of Rj 19.5 H (11.5-14.5) % Plt Count 334 (130-400) K/uL Immature Gran % (Auto) 1.1 % Neut % (Auto) 67.2 % Lymph % (Auto) 19.2 % Rooks % (Auto) 10.2 % Eos % (Auto) 1.8 % Baso % (Auto) 0.5 % Neut # (Auto) 5.56 (1.40-6.50) K/uL Lymph # (Auto) 1.59 (1.20-3.40) K/uL Rooks # (Auto) 0.84 H (0.11-0.59) K/uL Eos # (Auto) 0.15 (0.00-0.50) K/uL Baso # (Auto) 0.04 (0.00-0.20) K/uL Immature Gran # (Auto) 0.09 (0.01-0.20) K/uL Polychromasia Hypochromasia Present Anisocytosis Microcytosis Present Tear Drop Cells 1+ Ovalocytes 1+ Sodium 133 L (136-145) mmol/L Potassium 4.1 (3.5-5.1) mmol/L Chloride 105 (98-107) mmol/L Carbon Dioxide 24 (21-32) mmol/L Anion Gap 4 (3-11) BUN 18 (6-23) mg/dl Creatinine 0.85 (0.6-1.4) mg/dl Est Cr Clr Drug Dosing 87.6 ml/min eGFR 87.84 BUN/Creatinine Ratio 21.2 H (10-20) Glucose 96 (70-99(Fasting)) mg/dl Calcium 8.1 L (8.6-10.3) mg/dl Magnesium 2.0 (1.7-2.4) mg/dl Total Bilirubin 0.4 (0.2-1.0) mg/dl AST 13 (13-39) U/L ALT 6 L (7-52) U/L Alkaline Phosphatase 52 (34-104) U/L Troponin I High Sens 24.3 H D (0-20) pg/ml Total Protein 5.9 L D (6.0-8.3) gm/dl Albumin 3.2 L (3.4-5.0) gm/dl Globulin 2.7 (2.5-4.0) gm/dl Albumin/Globulin Ratio 1.2 (0.9-2) Triglycerides 108 (0-150) mg/dl Cholesterol 124 (0-200) mg/dl LDL Cholesterol, Calc 68 mg/dl VLDL Cholesterol, Calc 22 (0-30) mg/dl HDL Cholesterol 34 mg/dl Cholesterol/HDL Ratio 3.6 (0-5) Lipase (11-82) U/L TSH 2.651 (0.300-4.500) uIu/ml Adenovirus (PCR) (NotDetected) B. pertussis DNA (PCR) (NotDetected) B.parapertussis DNA PCR (NotDetected) C. pneumoniae DNA (PCR) (NotDetected) Coronavirus OC43 (PCR) (NotDetected) Coronavirus HKU1 (PCR) (NotDetected) Coronavirus 229E (PCR) (NotDetected) SARS-CoV-2 (PCR) (NotDetected) Coronavirus NL63 (PCR) (NotDetected) Human Metapneumovir PCR (NotDetected) Influenza Type A (PCR) (NotDetected) Influenza Type B (PCR) (NotDetected) M. pneumoniae (PCR) (NotDetected) Parainfluenza 1 (PCR) (NotDetected) Parainfluenza 2 (PCR) (NotDetected) Parainfluenza 3 (PCR) (NotDetected) Parainfluenza 4 (PCR) (NotDetected) RSV (PCR) (NotDetected) Entero/Rhino (PCR) (NotDetected) Blood Type Antibody Screen 02/08/24 02/08/24 02/08/24 Range/Units 20:52 17:51 16:39 WBC (4.8-10.8) K/ul RBC (4.70-6.10) M/uL Hgb 7.8 L (14.0-18.0) g/dl Hct 26.7 L (42.0-52.0) % MCV (80.0-100.0) fL MCH (25.0-34.0) pg MCHC (32.0-36.0) g/dL RDW Std Deviation (36.4-46.3) fL RDW Coeff of Rj (11.5-14.5) % Plt Count (130-400) K/uL Immature Gran % (Auto) % Neut % (Auto) % Lymph % (Auto) % Rooks % (Auto) % Eos % (Auto) % Baso % (Auto) % Neut # (Auto) (1.40-6.50) K/uL Lymph # (Auto) (1.20-3.40) K/uL Rooks # (Auto) (0.11-0.59) K/uL Eos # (Auto) (0.00-0.50) K/uL Baso # (Auto) (0.00-0.20) K/uL Immature Gran # (Auto) (0.01-0.20) K/uL Polychromasia Hypochromasia Anisocytosis Microcytosis Tear Drop Cells Ovalocytes Sodium (136-145) mmol/L Potassium (3.5-5.1) mmol/L Chloride (98-107) mmol/L Carbon Dioxide (21-32) mmol/L Anion Gap (3-11) BUN (6-23) mg/dl Creatinine (0.6-1.4) mg/dl Est Cr Clr Drug Dosing ml/min eGFR BUN/Creatinine Ratio (10-20) Glucose (70-99(Fasting)) mg/dl Calcium (8.6-10.3) mg/dl Magnesium (1.7-2.4) mg/dl Total Bilirubin (0.2-1.0) mg/dl AST (13-39) U/L ALT (7-52) U/L Alkaline Phosphatase (34-104) U/L Troponin I High Sens 34.7 H (0-20) pg/ml Total Protein (6.0-8.3) gm/dl Albumin (3.4-5.0) gm/dl Globulin (2.5-4.0) gm/dl Albumin/Globulin Ratio (0.9-2) Triglycerides (0-150) mg/dl Cholesterol (0-200) mg/dl LDL Cholesterol, Calc mg/dl VLDL Cholesterol, Calc (0-30) mg/dl HDL Cholesterol mg/dl Cholesterol/HDL Ratio (0-5) Lipase (11-82) U/L TSH (0.300-4.500) uIu/ml Adenovirus (PCR) (NotDetected) B. pertussis DNA (PCR) (NotDetected) B.parapertussis DNA PCR (NotDetected) C. pneumoniae DNA (PCR) (NotDetected) Coronavirus OC43 (PCR) (NotDetected) Coronavirus HKU1 (PCR) (NotDetected) Coronavirus 229E (PCR) (NotDetected) SARS-CoV-2 (PCR) (NotDetected) Coronavirus NL63 (PCR) (NotDetected) Human Metapneumovir PCR (NotDetected) Influenza Type A (PCR) (NotDetected) Influenza Type B (PCR) (NotDetected) M. pneumoniae (PCR) (NotDetected) Parainfluenza 1 (PCR) (NotDetected) Parainfluenza 2 (PCR) (NotDetected) Parainfluenza 3 (PCR) (NotDetected) Parainfluenza 4 (PCR) (NotDetected) RSV (PCR) (NotDetected) Entero/Rhino (PCR) (NotDetected) Blood Type A Positive Antibody Screen NEGATIVE 02/08/24 02/08/24 02/08/24 Range/Units 15:11 15:06 12:08 WBC 10.74 (4.8-10.8) K/ul RBC 5.73 (4.70-6.10) M/uL Hgb 8.3 L 9.8 L (14.0-18.0) g/dl Hct 29.3 L 34.6 L (42.0-52.0) % MCV 60.4 L (80.0-100.0) fL MCH 17.1 L (25.0-34.0) pg MCHC 28.3 L (32.0-36.0) g/dL RDW Std Deviation 40.8 (36.4-46.3) fL RDW Coeff of Rj 21.0 H (11.5-14.5) % Plt Count 411 H (130-400) K/uL Immature Gran % (Auto) 1.1 % Neut % (Auto) 77.7 % Lymph % (Auto) 12.3 % Rooks % (Auto) 7.1 % Eos % (Auto) 1.1 % Baso % (Auto) 0.7 % Neut # (Auto) 8.35 H (1.40-6.50) K/uL Lymph # (Auto) 1.32 (1.20-3.40) K/uL Rooks # (Auto) 0.76 H (0.11-0.59) K/uL Eos # (Auto) 0.12 (0.00-0.50) K/uL Baso # (Auto) 0.07 (0.00-0.20) K/uL Immature Gran # (Auto) 0.12 (0.01-0.20) K/uL Polychromasia 2+ Hypochromasia Present Anisocytosis Present Microcytosis Present Tear Drop Cells 1+ Ovalocytes 1+ Sodium 133 L (136-145) mmol/L Potassium 4.3 (3.5-5.1) mmol/L Chloride 101 (98-107) mmol/L Carbon Dioxide 25 (21-32) mmol/L Anion Gap 7 (3-11) BUN 20 (6-23) mg/dl Creatinine 1.01 (0.6-1.4) mg/dl Est Cr Clr Drug Dosing 73.7 ml/min eGFR 75.18 BUN/Creatinine Ratio 19.8 (10-20) Glucose 114 H (70-99(Fasting)) mg/dl Calcium 9.0 (8.6-10.3) mg/dl Magnesium (1.7-2.4) mg/dl Total Bilirubin 0.4 (0.2-1.0) mg/dl AST 15 (13-39) U/L ALT 9 (7-52) U/L Alkaline Phosphatase 61 (34-104) U/L Troponin I High Sens 28.3 H D 12.2 (0-20) pg/ml Total Protein 7.8 (6.0-8.3) gm/dl Albumin 4.1 (3.4-5.0) gm/dl Globulin 3.7 (2.5-4.0) gm/dl Albumin/Globulin Ratio 1.1 (0.9-2) Triglycerides (0-150) mg/dl Cholesterol (0-200) mg/dl LDL Cholesterol, Calc mg/dl VLDL Cholesterol, Calc (0-30) mg/dl HDL Cholesterol mg/dl Cholesterol/HDL Ratio (0-5) Lipase 22 (11-82) U/L TSH (0.300-4.500) uIu/ml Adenovirus (PCR) Not Detected (NotDetected) B. pertussis DNA (PCR) Not Detected (NotDetected) B.parapertussis DNA PCR Not Detected (NotDetected) C. pneumoniae DNA (PCR) Not Detected (NotDetected) Coronavirus OC43 (PCR) Not Detected (NotDetected) Coronavirus HKU1 (PCR) Not Detected (NotDetected) Coronavirus 229E (PCR) Not Detected (NotDetected) SARS-CoV-2 (PCR) Not Detected (NotDetected) Coronavirus NL63 (PCR) Not Detected (NotDetected) Human Metapneumovir PCR Not Detected (NotDetected) Influenza Type A (PCR) Not Detected (NotDetected) Influenza Type B (PCR) Not Detected (NotDetected) M. pneumoniae (PCR) Not Detected (NotDetected) Parainfluenza 1 (PCR) Not Detected (NotDetected) Parainfluenza 2 (PCR) Not Detected (NotDetected) Parainfluenza 3 (PCR) Not Detected (NotDetected) Parainfluenza 4 (PCR) Not Detected (NotDetected) RSV (PCR) Not Detected (NotDetected) Entero/Rhino (PCR) Not Detected (NotDetected) Blood Type Antibody Screen Diagnostic Findings Chest X-Ray 02/08/24 12:11 XR chest 1V portable CLINICAL HISTORY: Chest pain, nonspecific. COMPARISON STUDY: Chest radiograph August 23, 2018. FINDINGS: Elevation the right hemidiaphragm is similar to prior exam. There is no pneumothorax or pleural effusion. Cardiomediastinal silhouette is stable. Hazy left basilar opacity is unchanged. Mediastinal contours are stable. IMPRESSION: No acute cardiopulmonary findings. No significant change in appearance of the chest. ACT 112: Negative or not required by law. Electronically signed by: Surinder Pina M.D. 02/08/2024 12:42 PM
--- NOTE | 2024-02-09 11:00 | Communication Note ---
Date of Service: February 09, 2024 I looked at old endoscopy records--his last EGD and colonoscopy here at [facility] was in 2014. Colonoscopy was unremarkable, EGD showed esophagitis.
[2024-02-09 11:56] VITALS: BP 126/79; PULSE 85; RESP 19; TEMP 97.7; O2SAT 100
[2024-02-09 13:22] LABS: Hematocrit (blood only) 27.4 % (42.0-52.0); Hemoglobin 7.8 g/dl (14.0-18.0)
[2024-02-09] MEDS ORDERED: IRON SUCROSE 300 MG in SODIUM CHLORIDE 0.9% 250 ML IV ONE (14:00)
[2024-02-09] MEDS: IRON SUCROSE 200 MG in SODIUM CHLORIDE 0.9% 100 ML IV ONE (14:30)
--- NOTE | 2024-02-09 15:24 | Discharge Summary ---
Discharge Summary Date of Service February 09, 2024 Principal Dx & Hospital Course #1 = Principal Diagnosis (1) Chest pain: (2) Atrial fibrillation with rapid ventricular response: (3) Profound anemia: (4) Sleep apnea: Plan 78-year-old male presents to the ED with chest pressure and bilateral arm pain associate with shortness of breath 2 hours prior to presentation, history of atrial fibrillation on Xarelto therapy. May have had a short run of tachyarrhythmia prior to presentation was self resolved which would explain his symptoms Chest pain rule out angina. Serial troponins do not suggest myocardial injury, ECG without acute changes, continuing home medications of metoprolol succinate, remains on pravastatin for cholesterol. Echocardiogram revealed no regional wall motion abnormalities EF of 60 to 65% mildly dilated ascending aorta no change from 2021. Troponins went from 28-30 4-24 given iron deficiency anemia will hold xarelto for one week and aspirin for 3 days Iron deficiency anemia, hemoglobin dropped from 9.8 to 7.5, rivaroxaban held, PPI , iron < 10, given venofer 200mg iv x1, spoke to daughter to consider GI evaluation, looking to see Dr Cannon Obstructive sleep apnea. Patient CPAP machine is at home. We have ordered CPAP for here. The patient stated to use 4 L of oxygen however this has been clarified by the patient's daughter she is looked up his outpatient sleep study on their portal. He uses 2 L of oxygen into his CPAP and is an auto CPAP from 4 to 20 cm of water. Notes For Next Care Provider help to coordinate iron repletion and Gi evaluation Admission HPI Per Admitting Provider This is a pleasant 78-year-old male who had an episode today with mid substernal chest pressure with radiation to the upper extremities bilaterally. EMS was called. He was found to be in an SVT. Patient does have a history of paroxysmal atrial fibrillation chronically anticoagulated on Xarelto. He was transported by EMS to [facility] from [facility] per patient and family request. And route in the ambulance he can converted to a r ate controlled rhythm and his symptomatology resolved. In the emergency department he had a troponin of 12.2 in the ER. With a reassuring EKG. Hemoglobin is noted to be 9.8. On further discussion with the patient and his family at the bedside including his daughter and granddaughter the patient has been diagnosed with anemia with iron deficiency and is scheduled to see hematology as an outpatient for IV iron infusions. The patient denies any black tarry stools or any ailyn blood in his stools. We will check a stool for occult blood given the fact he is on aspirin and Xarelto. We are going admit the patient for serial troponins. Check an echocardiogram. Will consider cardiology consultation pending troponins and echo. We also check a [employer] respiratory panel. Discharge Exam rhythm is controlled, cardiac is regular no abdominal pain Discharge Plan Discharge Items Patient Disposition: Home - Self-Care Reason For Visit: SVT Discharge Diagnosis: rapid heart rate anemia, iron deficiency and blood loss Activity: Resume your previous activity Non-emergency contact: Primary Care Provider and Project Management Professor Call non-emergency contact if: your symptoms worsen Follow-up/Referrals: Harvinder Lopez MD [Primary Care Provider] - (patient will make PCP follow up appointment.) Diet: Regular Addtl Attending Provider Instructions: please follow up with your farm tractor operator for further evaluation of your anemia, if you need to Dr Lopez can arrange for you to see [facility] we are going to temporarily hold your aspirin and xarelto, please have a follow up with Dr Lopez to further discuss please take your acid lowering medication twice a day please take a multivitamin with iron daily always return if you feel worse Pending Studies at Discharge: No Stand-Alone Forms: My [facility], Smoking Cessation Medications and DC Order Prescriptions: Continued cyanocobalamin (vitamin B-12) 1,000 mcg/mL solution 1,000 mcg IM .COMPLEX Qty: 180 2RF Rx Instructions: 1,000 mcg intramuscularly inject IM once weekly for weeks then inject onec monthly; alfuzosin [Uroxatral] 10 mg tablet extended release 24 hr 10 mg PO DAILY Qty: 90 3RF Rx Instructions: administer after the same meal each day sertraline 50 mg tablet 50 mg PO DAILY metoprolol succinate 25 mg tablet extended release 24 hr 12.5 mg PO DAILY famotidine 20 mg tablet 20 mg PO BID levothyroxine 175 mcg Tablet 175 mcg PO QAM pravastatin 20 mg Tablet 20 mg PO HS melatonin 5 mg capsule 10 mg PO HS risperidone 3 mg tablet 3 mg PO HS cholecalciferol (vitamin D3) 1,250 mcg (50,000 unit) tablet 50,000 unit PO WK fluticasone propionate 220 mcg/actuation HFA aerosol inhaler 2 puff INHALATION BID Held aspirin 81 mg Tablet,Delayed Release (Dr/Ec) 81 mg PO HS Hold Instructions: Resume on 02/12/24. Xarelto 20 mg tablet 20 mg PO QPM Hold Instructions: Resume on 02/15/24. Discharge Orders: Discharge Order (Routine); Ordered 02/09/24 Ordered By: Ignacio Rojas/Other Patient Handouts: GI Bleeding Causes and Tests, ED Lower GI Bleeding (Stable), ED Upper GI Bleeding (Stable) Admission Data Admit Date/Time: 02/08/24 14:50 Attending Provider: Ignacio Bowman Admit Provider: Forest Keller Primary Care Provider: Harvinder Lopez Other Providers: Forest Keller; Rad Chavez Other Interventions: Discharge Summary Assessment (RN) Last Done: 02/09/24 13:35 Hospital Stay Data Consultations 02/08/24 13:07 ED Decision to Admit Stat 02/08/24 15:53 Consult Gastroenterology Routine Pending Results Patient Have Any Pending Studies at Discharge: No Discharge Instructions Given to Patient (Per Discharging Provider) please follow up with your farm tractor operator for further evaluation of your anemia, if you need to Dr Lopez can arrange for you to see [facility] we are going to temporarily hold your aspirin and xarelto, please have a follow up with Dr Lopez to further discuss please take your acid lowering medication twice a day please take a multivitamin with iron daily always return if you feel worse Total Time Total Time Spent Total Time Spent (In Minutes): It required greater than 30 minutes to prepare this patient for discharge. Coding Level of Care Code 21283 INP/OBS DISCH >30 MIN Diagnoses Chest pain R07.9 Chest pain type: unspecified Atrial fibrillation with rapid ventricular response I48.91 Profound anemia D64.9 Sleep apnea G47.30
== END 2024-02-09 15:16 | disposition home or self-care (01) | DRG 310 ==
LOC: ED 11:59 → SUATTDRO 14:50 → 2E 14:50 → INTOOBSV 14:50 → 2E 18:48